=== PATIENT | female | born 1935 | race Caucasian/White ===

== ENCOUNTER 2017-01-29 08:00 | Outpatient (CLI) | payer MEDICARE ==
[2017-01-29 09:10] LABS: ALBUMIN/GLOBULIN RATIO 1.3 (1.0-2.2); BILIRUBIN,TOTAL 1.3 mg/dL (0.2-1.0); CALCIUM 9.4 mg/dL (8.5-10.3); MAGNESIUM 2.1 mg/dL (1.7-2.8); POTASSIUM 3.8 mmol/L (3.5-5.0); TOTAL PROTEIN 7.8 g/dL (6.7-8.2)
[2017-01-31 12:48] LABS: TEST RESULT REPORT (())
[2017-01-31 20:04] LABS: TEST RESULT REPORT (())
== END 2017-01-29 08:01 | disposition home or self-care (01) ==
LOC: LAB 08:00
PROVIDERS: ATTEND Specialist
DX: I36.1 Nonrheumatic tricuspid (valve) insufficiency (principal); I51.89 Other ill-defined heart diseases; I48.0 Paroxysmal atrial fibrillation; I25.10 Atherosclerotic heart disease of native coronary artery without angina pectoris; E78.5 Hyperlipidemia, unspecified; Z95.2 Presence of prosthetic heart valve; I10 Essential (primary) hypertension; R79.89 Other specified abnormal findings of blood chemistry; M86.9 Osteomyelitis, unspecified
CPT/HCPCS: 36415; 80053; 81599; 82465; 83704; 83718; 83735; 84478

== ENCOUNTER 2017-02-12 11:41 | Outpatient (CLI) | payer MEDICARE ==
[2017-02-12 11:59] LABS: BASOPHILS # (AUTO) 0.1 10^3/uL (0.0-0.1); BASOPHILS % (AUTO) 1.1 %; EOSINOPHILS # (AUTO) 0.1 10^3/uL (0.0-0.7); EOSINOPHILS % (AUTO) 2.1 %; HCT - HEMATOCRIT 40.9 % (37.0-47.0); HGB - HEMOGLOBIN 13.9 g/dL (12.0-16.0); LYMPHOCYTES # (AUTO) 1.4 10^3/uL (1.5-3.5); LYMPHOCYTES % (AUTO) 21.6 %; MEAN CORPUSCULAR HEMOGLOBIN 30.5 pg (27.0-31.0); MEAN CORPUSCULAR VOLUME 89.7 fL (81.0-99.0); MEAN PLATELET VOLUME 7.5 fL (7.9-10.8); MONOCYTES # (AUTO) 0.7 10^3/uL (0.0-1.0); MONOCYTES % (AUTO) 10.2 %; NEUTROPHILS # (AUTO) 4.2 10^3/uL (1.5-6.6); RED BLOOD COUNT 4.56 10^6/uL (4.20-5.40); RED CELL DISTRIBUTION WIDTH 14.4 % (12.0-15.0); UNCORRECTED WHITE BLOOD COUNT 6.5 x10^3/uL; WHITE BLOOD COUNT 6.5 x10^3/uL (4.8-10.8)
[2017-02-12 12:38] LABS: CALCIUM 9.6 mg/dL (8.5-10.3); CREATININE 1.1 mg/dL (0.4-1.0); POTASSIUM 4.5 mmol/L (3.5-5.0)
== END 2017-02-12 11:42 | disposition home or self-care (01) ==
LOC: LAB 11:41
PROVIDERS: ATTEND Internal Medicine
DX: Z79.899 Other long term (current) drug therapy (principal)
CPT/HCPCS: 36415; 80048; 85025

== ENCOUNTER 2017-09-21 08:37 | Outpatient (CLI) | payer MEDICARE ==
[2017-09-21 09:20] LABS: ALBUMIN/GLOBULIN RATIO 1.1 (1.0-2.2); BILIRUBIN,TOTAL 1.1 mg/dL (0.2-1.0); CALCIUM 9.5 mg/dL (8.5-10.3); CREATININE 1.2 mg/dL (0.4-1.0); MAGNESIUM 2.1 mg/dL (1.7-2.8); TOTAL PROTEIN 7.8 g/dL (6.7-8.2)
[2017-09-24 12:36] LABS: HDL LARGE 6549 nmol/L (5038-17886); LDL PARTICLE NUMBER 948 nmol/L (1016-2185); LDL PATTERN A Pattern (A); LDL PEAK SIZE 222.3 Angstrom (> OR = 218.2); LDL SMALL 144 nmol/L (115-386)
== END 2017-09-21 08:38 | disposition home or self-care (01) ==
LOC: LAB 08:37
PROVIDERS: ATTEND Specialist
DX: E78.5 Hyperlipidemia, unspecified (principal); I48.0 Paroxysmal atrial fibrillation
CPT/HCPCS: 36415; 80053; 81599; 83704; 83735

== ENCOUNTER 2018-02-07 11:16 | Outpatient (CLI) | payer MEDICARE ==
[2018-02-07 12:38] LABS: BASOPHILS % (AUTO) 0.6 %; EOSINOPHILS # (AUTO) 0.2 10^3/uL (0.0-0.7); EOSINOPHILS % (AUTO) 2.7 %; HGB - HEMOGLOBIN 15.3 g/dL (12.0-16.0); LYMPHOCYTES # (AUTO) 1.3 10^3/uL (1.5-3.5); LYMPHOCYTES % (AUTO) 19.8 %; MEAN CORPUSCULAR HEMOGLOBIN 30.9 pg (27.0-31.0); MEAN CORPUSCULAR HGB CONC 33.6 g/dL (32.0-36.0); MEAN CORPUSCULAR VOLUME 92.1 fL (81.0-99.0); MEAN PLATELET VOLUME 7.5 fL (7.9-10.8); MONOCYTES # (AUTO) 0.7 10^3/uL (0.0-1.0); MONOCYTES % (AUTO) 11.2 %; NEUTROPHILS # (AUTO) 4.3 10^3/uL (1.5-6.6); NEUTROPHILS % (AUTO) 65.7 %; PLT - PLATELET COUNT 180 10^3/uL (130-450); RED BLOOD COUNT 4.93 10^6/uL (4.20-5.40); RED CELL DISTRIBUTION WIDTH 14.2 % (12.0-15.0); WHITE BLOOD COUNT 6.5 x10^3/uL (4.8-10.8)
[2018-02-07 13:25] LABS: ALBUMIN 4.1 g/dL (3.2-5.5); BILIRUBIN,TOTAL 1.3 mg/dL (0.2-1.0); CALCIUM 9.6 mg/dL (8.5-10.3); CREATININE 1.1 mg/dL (0.4-1.0); TOTAL PROTEIN 8.4 g/dL (6.7-8.2)
--- NOTE | 2018-02-08 08:28 | Ultrasound Report ---
Procedure Date: 02/07/2018 Accession Number: [id number] / [id number] Procedure: US - Carotid Doppler Complete CPT Code: FULL RESULT: EXAM: CAROTID DOPPLER ULTRASOUND EXAM DATE: 02/07/2018 12:08 PM. CLINICAL HISTORY: LOSS OF EQUILIBRIUM. COMPARISON: None. TECHNIQUE: Real-time sonographic vascular imaging was performed by the receiving lead through the carotid arterial system with a linear transducer utilizing color-flow, Doppler flow and spectral analysis. Multiple registered representative static images were saved for review. FINDINGS: Transcription to insert worksheet here. Other: None. IMPRESSION: 1. Mild foci of mixed calcified and noncalcified plaque at the bilateral internal carotid arteries sinuses and proximal ICA segments. 2. Arterial velocities and spectral waveform show no evidence for hemodynamically significant (greater than 50%) stenoses of the bilateral internal carotid arteries. 3. Antegrade flow seen in the bilateral vertebral artery segments. Validated velocity measurements with angiographic measurements and velocity criteria are extrapolated from diameter data as defined by the Society of Radiologists in Ultrasound Consensus Conference Radiology 2003; 229;340-346. RADIA ADDENDUM: 02/13/18 15:50 Right: RCCA Prox: PSV 104 cm/sec. RCCA Dist: PSV 85 cm/sec, EDV 4 cm/sec. RECA: PSV 88 cm/sec. R Bulb: PSV 85 cm/sec, EDV 10 cm/sec, ICA/CCA ratio 1.00. ENRIQUETA Prox: PSV 81 cm/sec, EDV 8 cm/sec, ICA/CCA ratio 0.95. ENRIQUETA Mid: PSV 70 cm/sec, EDV 11 cm/sec, ICA/CCA ratio 0.82. ENRIQUETA Dist: PSV 100 cm/sec, EDV 11 cm/sec, ICA/CCA ratio 1.18. RVA: PSV 51 cm/sec. RVA flow direction: Antegrade. Left: LCCA Prox: PSV 113 cm/sec. LCCA Dist: PSV 72 cm/sec, EDV 7 cm/sec. LECA: PSV 108 cm/sec. L Bulb: PSV 121 cm/sec, EDV 13 cm/sec, ICA/CCA ratio 1.68. LICA Prox: PSV 117 cm/sec, EDV 11 cm/sec, ICA/CCA ratio 1.62. LICA Mid: PSV 64 cm/sec, EDV 9 cm/sec, ICA/CCA ratio 0.89. LICA Dist: PSV 54 cm/sec, EDV 8 cm/sec, ICA/CCA ratio 0.75. LVA: PSV 50 cm/sec. LVA flow direction: Antegrade.
== END 2018-02-07 11:17 | disposition home or self-care (01) ==
LOC: DI 11:16
PROVIDERS: ATTEND Internal Medicine
DX: R42 Dizziness and giddiness (principal); Z79.899 Other long term (current) drug therapy
CPT/HCPCS: 36415; 80053; 85025; 93880

== ENCOUNTER 2018-05-10 13:44 | Outpatient (CLI) | payer MEDICARE ==
--- NOTE | 2018-05-13 09:45 | Mammography Report ---
Reason: ROUTINE MAMMO Procedure Date: 05/10/2018 Accession Number: [id number] / [id number] Procedure: JUAN - Screening Mammo Dig RT CPT Code: FULL RESULT: EXAM: Screening Mammo Dig RT DATE: 05/10/2018 3:41 PM CLINICAL HISTORY: 82 year-old nulliparous female status post left radical mastectomy for personal history of left breast cancer status post radiation. TECHNIQUE: Right CC and MLO views were obtained. COMPARISON: 02/18/2015, 12/23/2013, 10/02/2012, 04/19/2011. FINDINGS: The breasts demonstrate heterogeneously dense fibroglandular parenchyma bilaterally. Typically benign vascular calcifications are identified. No suspicious masses, clustered microcalcifications, or regions of architectural distortion are identified. IMPRESSION: Benign findings RECOMMENDATION: Routine annual screening unless otherwise clinically indicated. BIRADS CATEGORY 2: Benign findings STANDARD QUALIFYING STATEMENTS: 1. This examination was not reviewed with the aid of Computer-Aided Detection (CAD). 2. A negative or benign imaging report should not delay biopsy if clinically suspicious findings are present. Consider surgical consultation if warrented. More than 5% of cancers are not identified by imaging. 3. Dense breasts may obscure an underlying neoplasm.
== END 2018-05-10 13:45 | disposition home or self-care (01) ==
LOC: DI 13:44
PROVIDERS: ATTEND Internal Medicine
DX: Z12.31 Encounter for screening mammogram for malignant neoplasm of breast (principal); Z08 Encounter for follow-up examination after completed treatment for malignant neoplasm; Z85.3 Personal history of malignant neoplasm of breast

== ENCOUNTER 2018-05-20 08:25 | Outpatient (CLI) | payer MEDICARE ==
--- NOTE | 2018-05-20 10:34 | Ultrasound Report ---
Reason: ABNL LFT'S Procedure Date: 05/20/2018 Accession Number: [id number] / [id number] Procedure: US - Abdomen Limited CPT Code: FULL RESULT: EXAM: ABDOMEN ULTRASOUND LIMITED, RUQ EXAM DATE: 05/20/2018 09:34 AM. CLINICAL HISTORY: Abnormal LFTS. COMPARISON: None. TECHNIQUE: Real-time scanning was performed with static images obtained. FINDINGS: Liver: Normal in size and echotexture. Liver measures at least 10 cm. Main portal vein flow: Hepatopetal. Gallbladder: Normal. No stones, wall thickening, or sonographic Hill's sign. Biliary System: CBD measures 1 mm. No intrahepatic or extrahepatic ductal dilatation. Other: None. IMPRESSION: Normal. No cholelithiasis or cholecystitis. RADIA
== END 2018-05-20 08:26 | disposition home or self-care (01) ==
LOC: DI 08:25
PROVIDERS: ATTEND Internal Medicine
DX: R94.5 Abnormal results of liver function studies (principal)
CPT/HCPCS: 76705

== ENCOUNTER 2018-06-26 10:57 | Outpatient (CLI) | payer MEDICARE ==
[2018-06-26 11:47] LABS: ALBUMIN 4.3 g/dL (3.2-5.5); ALBUMIN/GLOBULIN RATIO 1.2 (1.0-2.2); BILIRUBIN,TOTAL 1.1 mg/dL (0.2-1.0); CALCIUM 9.6 mg/dL (8.5-10.3); CREATININE 1.1 mg/dL (0.4-1.0); MAGNESIUM 2.1 mg/dL (1.7-2.8); TOTAL PROTEIN 7.9 g/dL (6.7-8.2)
== END 2018-06-26 10:58 | disposition home or self-care (01) ==
LOC: LAB 10:57
PROVIDERS: ATTEND Specialist
DX: E78.2 Mixed hyperlipidemia (principal); I48.0 Paroxysmal atrial fibrillation
CPT/HCPCS: 36415; 80053; 83735

== ENCOUNTER 2018-07-03 09:31 | Outpatient (CLI) | payer MEDICARE ==
[2018-07-05 08:59] LABS: CHOLESTEROL 149 mg/dL; HDL CHOLESTEROL 75 mg/dL; LDL CHOLESTEROL,CALCULATED 60 mg/dL; LDL/HDL RATIO 0.8 (<4.4); VLDL CHOLESTEROL 14 mg/dL
[2018-07-07 18:07] LABS: HDL LARGE 6032 nmol/L (3966-11938); LDL PARTICLE NUMBER 726 nmol/L (732-2035); LDL PATTERN A Pattern (A); LDL PEAK SIZE 220.5 Angstrom (> OR = 217.4); LDL SMALL 114 nmol/L (75-452)
== END 2018-07-03 09:32 | disposition home or self-care (01) ==
LOC: LAB 09:31
PROVIDERS: ATTEND Specialist
DX: E78.2 Mixed hyperlipidemia (principal)
CPT/HCPCS: 36415; 80061; 81599; 82465; 83704; 83718; 83721; 84478

== ENCOUNTER 2018-07-17 10:50 | Outpatient (CLI) | payer MEDICARE ==
[2018-07-17 11:24] LABS: MAGNESIUM 2.1 mg/dL (1.7-2.8)
== END 2018-07-17 10:51 | disposition home or self-care (01) ==
LOC: LAB 10:50
PROVIDERS: ATTEND Specialist
DX: I48.0 Paroxysmal atrial fibrillation (principal); R94.5 Abnormal results of liver function studies; E78.2 Mixed hyperlipidemia; I51.9 Heart disease, unspecified
CPT/HCPCS: 36415; 80048; 83735

== ENCOUNTER 2018-09-19 13:43 | Outpatient (CLI) | payer MEDICARE ==
[2018-09-19 14:00] LABS: BASOPHILS % (AUTO) 0.6 %; EOSINOPHILS # (AUTO) 0.2 10^3/uL (0.0-0.7); EOSINOPHILS % (AUTO) 2.9 %; HGB - HEMOGLOBIN 14.7 g/dL (12.0-16.0); LYMPHOCYTES # (AUTO) 1.4 10^3/uL (1.5-3.5); LYMPHOCYTES % (AUTO) 20.9 %; MEAN CORPUSCULAR HEMOGLOBIN 30.4 pg (27.0-31.0); MEAN CORPUSCULAR HGB CONC 34.1 g/dL (32.0-36.0); MEAN CORPUSCULAR VOLUME 89.2 fL (81.0-99.0); MEAN PLATELET VOLUME 7.7 fL (7.9-10.8); MONOCYTES # (AUTO) 0.7 10^3/uL (0.0-1.0); MONOCYTES % (AUTO) 9.8 %; NEUTROPHILS # (AUTO) 4.5 10^3/uL (1.5-6.6); NEUTROPHILS % (AUTO) 65.8 %; PLT - PLATELET COUNT 173 10^3/uL (130-450); RED BLOOD COUNT 4.83 10^6/uL (4.20-5.40); RED CELL DISTRIBUTION WIDTH 14.8 % (12.0-15.0); WHITE BLOOD COUNT 6.9 x10^3/uL (4.8-10.8)
[2018-09-19 14:07] LABS: CALCIUM 9.2 mg/dL (8.5-10.3); CREATININE 1.1 mg/dL (0.4-1.0)
== END 2018-09-19 13:44 | disposition home or self-care (01) ==
LOC: LAB 13:43
PROVIDERS: ATTEND Internal Medicine
DX: M86.9 Osteomyelitis, unspecified (principal)
CPT/HCPCS: 36415; 80048; 85025

== ENCOUNTER 2018-12-26 08:59 | Outpatient (CLI) | payer MEDICARE ==
[2018-12-26 09:44] LABS: ALBUMIN 4.1 g/dL (3.2-5.5); ALBUMIN/GLOBULIN RATIO 1.2 (1.0-2.2); BILIRUBIN,TOTAL 1.4 mg/dL (0.2-1.0); CALCIUM 9.6 mg/dL (8.5-10.3); CREATININE 1.1 mg/dL (0.4-1.0); TOTAL PROTEIN 7.6 g/dL (6.7-8.2)
[2018-12-29 00:22] LABS: HDL LARGE 5254 nmol/L (3966-11938); LDL PARTICLE NUMBER 866 nmol/L (732-2035); LDL PATTERN A Pattern (A); LDL PEAK SIZE 220.5 Angstrom (> OR = 217.4); LDL SMALL 136 nmol/L (75-452)
== END 2018-12-26 09:00 | disposition home or self-care (01) ==
LOC: LAB 08:59
PROVIDERS: ATTEND Specialist
DX: E78.2 Mixed hyperlipidemia (principal); I48.0 Paroxysmal atrial fibrillation; R94.5 Abnormal results of liver function studies
CPT/HCPCS: 36415; 80053; 81599; 82465; 83704; 83718; 83735; 84478

== ENCOUNTER 2019-03-03 10:24 | Emergency (ER) | payer MEDICARE ==
--- NOTE | 2019-03-03 12:44 | ED Physician Documentation ---
PD HPI BACK PAIN - Stated complaint Stated Complaint: BACK PX - Chief complaint Chief Complaint: Back Pain - History obtained from History obtained from: Patient - History of Present Illness Timing - onset: How many weeks ago (2) Timing - duration: Weeks (2) Timing - details: Abrupt onset Pain level max: 7 Pain level now: 5 Location: Mid, Right Quality: Pain, Spasm Associated symptoms: No: Fever, Weakness, Numbness, Incontinent of urine, Unable to urinate, Hematuria, Incontinent of stool Improves with: Rest Worsened by: Movement Contributing factors: Other (states injured it getting out of the car) Recently seen: Not recently seen - Additional information Additional information: taking tylenol at home. 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[employer]IC: Breast cancer : None HEENT: None Psych: None Musculoskeletal: Osteoporosis Derm: None - Past Surgical History Past Surgical History: Yes /[employer]INTENANCE MECH[employer]IC: Mastectomy Cardiovascular: CABG, Valve replacement - Present Medications Home Medications: Ambulatory Orders Medication Instructions Recorded Confirmed Amlodipine Besylate 5 mg PO DAILY 09/10/13 05/16/16 Warfarin [Coumadin] 5 mg PO DAILY@1400 09/10/13 05/16/16 Metoprolol Tartrate 50 mg PO BID 08/22/14 05/16/16 Atorvastatin [Lipitor] 10 mg PO QPM 05/16/16 05/16/16 Cholecalciferol (Vitamin D3) 5,000 units PO DAILY 05/16/16 05/16/16 [Vitamin D3] Potassium Chloride 20 meq PO DAILY 05/16/16 05/16/16 hydroCHLOROthiazide 25 mg PO DAILY 05/16/16 05/16/16 [Hydrochlorothiazide] Hydrocodone/Acetaminophen 1 - 2 each PO Q6H PRN #14 tablet 03/03/19 [Hydrocodon-Acetaminophen 5-325] Ondansetron Odt [Zofran] 4 mg TL Q6H PRN #10 tablet 03/03/19 - Allergies Allergies/Adverse Reactions: Allergies Allergy/AdvReac Type Severity Reaction Status Date / Time codeine AdvReac Unknown Nausea Verified 03/03/19 10:42 - Social History Does the pt smoke?: No Smoking Status: Never smoker Does the pt drink ETOH?: Yes Does the pt have substance abuse?: No - Immunizations Immunizations are current?: Yes - POLST Patient has POLST: No PD ED PE NORMAL - Vitals Vital signs reviewed: Yes - General General: Alert and oriented X 3, No acute distress, Well developed/nourished - HEENT HEENT: Moist mucous membranes - Neck Neck: Supple, no meningeal sign - Cardiac Cardiac: RRR, Strong equal pulses - Respiratory Respiratory: No respiratory distress, Clear bilaterally - Abdomen Abdomen: Soft, Non tender, Non distended - Back Back: Other (Tender palpation over the spinous process of approximately T8. Otherwise normal examination of the back and spine. No paraspinal spasm. No step-off or deformity) - Derm Derm: Warm and dry - Extremities Extremities: No edema - Neuro Neuro: Alert and oriented X 3, No motor deficit, No sensory deficit, Other (Normal bilateral lower extremity patellar and ankle jerk reflexes. Normal great toe extension bilaterally. no saddle anesthesia) - Psych Psych: Normal mood, Normal affect Results - Vitals Vitals: Vital Signs - 24 hr 03/03/19 03/03/19 10:39 16:17 Temperature 36.5 C 36.7 C Heart Rate 72 72 Respiratory 18 18 Rate Blood Pressure 150/64 H 151/48 H O2 Saturation 96 96 Oxygen O2 Source Room air - Labs Labs: Laboratory Tests 03/03/19 13:13 Whole Blood INR 3.1 H - Rads (name of study) T spine xray Radiology: Prelim report reviewed, EMP read contemporaneously, See rad report (T8 compression fracture) CT T spine Radiology: Prelim report reviewed, EMP read contemporaneously, See rad report (T8 compression fracture, a 2 column fracture with no retropulsion of cortex. 2. Carotid artery calcifications and other chronic or incidental findings. ) PD MEDICAL DECISION MAKING - ED course Complexity details: reviewed results, re-evaluated patient, considered differential, d/w patient, d/w data center consultant ED course: 83-year-old female with a T8 burst fracture. 2 column, anterior and intermediate. Discussed the case with Dr. Teague [id number], [facility] spine surgery. Recommends upright films. If there is no movement on upright films can be discharged home to follow-up with her doctor. Patient is neurologically intact. There is no change on upright films. Initial T-spine x- rays were upright films. Patient counseled regarding signs and symptoms for which I believe and urgent re-evaluation would be necessary. Patient with good understanding of and agreement to plan and is comfortable going home at this time This document was made in part using voice recognition software. While efforts are made to proofread this document, sound alike and grammatical errors may occur. Departure - Departure Disposition: Home, Self Care Clinical Impression: Compression fracture of T8 vertebra Qualifiers: Encounter type: initial encounter Qualified Code(s): S22.060A - Wedge compression fracture of T7-T8 vertebra, initial encounter for closed fracture Condition: Good Instructions: ED Fx Comp Vertebral Follow-Up: Jasmin Garland MD [Primary Care Provider] - Within 1 week Prescriptions: Hydrocodone/Acetaminophen [Hydrocodon-Acetaminophen 5-325] 1 - 2 each PO Q6H PRN #14 tablet PRN Reason: pain Ondansetron Odt [Zofran] 4 mg TL Q6H PRN #10 tablet PRN Reason: Nausea / Vomiting Comments: You have a T8 compression fracture. This is stable. This should heal over the next few weeks. Make sure to follow-up closely with your doctor for further care. Return if you worsen. Do not drink alcohol or drive while on narcotic pain medicine. Note that many narcotic pain relievers also contain tylenol/acetaminophen. Please ensure that your total dose of acetaminophen from all sources does not exceed 3 grams (3000mg) per day. You may constipated on this medication, take a stool softener such as "Colace" twice a day while you are on it. Also recommend a vazr-mvc-dwbndnu laxative such as senna or MiraLAX any day that you do not have a bowel movement. If you received narcotic pain medication in the emergency department, do not drive or operate machinery for the next 24 hours. Discharge Date/Time: 03/03/19 16:18
--- NOTE | 2019-03-03 13:21 | XRAY Report ---
Reason: pain approx T8 over spinous process. Procedure Date: 03/03/2019 Accession Number: [id number] / [id number] Procedure: XR - Thoracic Spine 2 View CPT Code: FULL RESULT: EXAM: THORACIC SPINE RADIOGRAPHY EXAM DATE: 03/03/2019 12:58 PM. CLINICAL HISTORY: Pain approx T8 over spinous process. COMPARISON: CHEST 2 VIEW PA/LAT 05/15/2016 1:43 PM. TECHNIQUE: 2 views. FINDINGS: Alignment: Normal. No spondylolisthesis or scoliosis. Bones: Diffuse osteopenia. Moderate compression deformity at approximately T8 level. Generalized thoracic kyphosis. Disks: Mild loss of disk space height within mid to lower thoracic spine. Soft Tissues: Prior sternotomy and cardiac valve replacement. Dense atherosclerotic aortic calcifications. IMPRESSION: 1. Diffuse osteopenia. A mid to lower thoracic vertebral body fracture with moderate anterior wedging at approximately T8 level has developed since 05/15/2016. RADIA
--- NOTE | 2019-03-03 14:11 | CT Report ---
Reason: T8 compression fracture on xray, back pain Procedure Date: 03/03/2019 Accession Number: [id number] / [id number] Procedure: CT - THORACIC SPINE WO CPT Code: FULL RESULT: EXAM: CT THORACIC SPINE WITHOUT CONTRAST EXAM DATE: 03/03/2019 01:47 PM. CLINICAL HISTORY: T8 compression fracture on x-ray, back pain. COMPARISONS: THORACIC SPINE 2 VIEW 03/03/2019 12:42 PM CHEST 2 VIEW PA/LAT 05/15/2016 1:43 PM. TECHNIQUE: Thin-section axial images were acquired of the thoracic spine from C7 to L1 without contrast. Post-processing: Coronal and sagittal reformats. Other: None. In accordance with CT protocol optimization, one or more of the following dose reduction techniques were utilized for this exam: automated exposure control, adjustment of mA and/or KV based on patient size, or use of iterative reconstructive technique. FINDINGS: Alignment: Mild scoliosis. No listhesis. Bones: Osteopenia. Upper endplate anterior compression fracture of T8 involving anterior and intermediate columns, but with no retropulsion of cortex. No posterior involvement. Otherwise intact. Disk Levels/Facets: Disk spaces generally well preserved. Mild degenerative changes. Musculature: Unremarkable. Other: Diffuse emphysematous changes. Dilated ascending thoracic aorta measuring about 4.1 cm. Carotid artery calcifications. Calcifications of mitral annulus. IMPRESSION: 1. T8 compression fracture, a 2 column fracture with no retropulsion of cortex. 2. Carotid artery calcifications and other chronic or incidental findings. RADIA
[2019-03-03 16:18] VITALS: BP 151/48
== END 2019-03-03 16:18 | disposition home or self-care (01) ==
LOC: ED 10:24
DX: S22.061A Stable burst fracture of T7-T8 vertebra, initial encounter for closed fracture (principal); X50.1XXA Overexertion from prolonged static or awkward postures, initial encounter; V48.4XXA Person boarding or alighting a car injured in noncollision transport accident, initial encounter; Y93.89 Activity, other specified; I10 Essential (primary) hypertension; I48.91 Unspecified atrial fibrillation; Z79.01 Long term (current) use of anticoagulants
CPT/HCPCS: 72070; 72128; 85610; 99283; 99284

== ENCOUNTER 2019-07-16 10:18 | Outpatient (CLI) | payer MEDICARE ==
[2019-07-16 10:45] LABS: CALCIUM 9.8 mg/dL (8.5-10.3); CREATININE 1.2 mg/dL (0.4-1.0)
== END 2019-07-16 10:19 | disposition home or self-care (01) ==
LOC: LAB 10:18
PROVIDERS: ATTEND Specialist
DX: I10 Essential (primary) hypertension (principal)
CPT/HCPCS: 36415; 80048; 83735

== ENCOUNTER 2019-08-28 10:25 | Outpatient (CLI) | payer MEDICARE ==
[2019-08-28 11:06] LABS: ALBUMIN 4.6 g/dL (3.2-5.5); ALBUMIN/GLOBULIN RATIO 1.2 (1.0-2.2); BILIRUBIN,TOTAL 1.9 mg/dL (0.2-1.0); CALCIUM 10.1 mg/dL (8.5-10.3); CREATININE 1.1 mg/dL (0.4-1.0); MAGNESIUM 2.2 mg/dL (1.7-2.8); TOTAL PROTEIN 8.4 g/dL (6.7-8.2)
[2019-08-31 20:09] LABS: HDL LARGE 7000 nmol/L (3966-11938); LDL PARTICLE NUMBER 976 nmol/L (732-2035); LDL PATTERN A Pattern (A); LDL PEAK SIZE 225.4 Angstrom (> OR = 217.4); LDL SMALL 140 nmol/L (75-452)
== END 2019-08-28 10:26 | disposition home or self-care (01) ==
LOC: LAB 10:25
PROVIDERS: ATTEND Specialist
DX: E78.2 Mixed hyperlipidemia (principal); I48.0 Paroxysmal atrial fibrillation
CPT/HCPCS: 36415; 80053; 80061; 81599; 83704; 83735

== ENCOUNTER 2019-11-04 13:30 | Outpatient (CLI) | payer MEDICARE ==
[2019-11-04 13:56] LABS: CREATININE 1.2 mg/dL (0.4-1.0); MAGNESIUM 2.1 mg/dL (1.7-2.8)
== END 2019-11-04 13:31 | disposition home or self-care (01) ==
LOC: LAB 13:30
PROVIDERS: ATTEND Specialist
DX: I48.0 Paroxysmal atrial fibrillation (principal); I50.810 Right heart failure, unspecified
CPT/HCPCS: 36415; 80048; 83735; 83880

== ENCOUNTER 2019-12-12 13:18 | Outpatient (CLI) | payer MEDICARE ==
[2019-12-12 13:42] LABS: ALBUMIN 4.1 g/dL (3.2-5.5); BILIRUBIN,TOTAL 1.6 mg/dL (0.2-1.0); CALCIUM 9.5 mg/dL (8.5-10.3); CREATININE 1.3 mg/dL (0.4-1.0); MAGNESIUM 2.2 mg/dL (1.7-2.8); TOTAL PROTEIN 8.1 g/dL (6.7-8.2)
== END 2019-12-12 13:19 | disposition home or self-care (01) ==
LOC: LAB 13:18
PROVIDERS: ATTEND Specialist
DX: I48.0 Paroxysmal atrial fibrillation (principal); I50.810 Right heart failure, unspecified
CPT/HCPCS: 36415; 80053; 83735; 83880

== ENCOUNTER 2020-01-16 12:37 | Outpatient (CLI) | payer MEDICARE ==
[2020-01-16 13:02] LABS: CALCIUM 9.8 mg/dL (8.5-10.3); CREATININE 1.2 mg/dL (0.4-1.0); MAGNESIUM 2.3 mg/dL (1.7-2.8)
== END 2020-01-16 12:38 | disposition home or self-care (01) ==
LOC: LAB 12:37
PROVIDERS: ATTEND Specialist
DX: I10 Essential (primary) hypertension (principal); I36.1 Nonrheumatic tricuspid (valve) insufficiency; I48.0 Paroxysmal atrial fibrillation; R94.5 Abnormal results of liver function studies; E78.00 Pure hypercholesterolemia, unspecified
CPT/HCPCS: 36415; 80048; 83735

== ENCOUNTER 2020-01-26 12:58 | Outpatient (CLI) | payer MEDICARE ==
[2020-01-26 13:33] LABS: BASOPHILS % (AUTO) 0.7 %; EOSINOPHILS # (AUTO) 0.2 10^3/uL (0.0-0.7); EOSINOPHILS % (AUTO) 2.7 %; HGB - HEMOGLOBIN 13.8 g/dL (12.0-16.0); LYMPHOCYTES # (AUTO) 1.3 10^3/uL (1.5-3.5); LYMPHOCYTES % (AUTO) 21.2 %; MEAN CORPUSCULAR HEMOGLOBIN 29.2 pg (27.0-31.0); MEAN CORPUSCULAR HGB CONC 31.9 g/dL (32.0-36.0); MEAN CORPUSCULAR VOLUME 91.5 fL (81.0-99.0); MEAN PLATELET VOLUME 9.8 fL (7.9-10.8); MONOCYTES # (AUTO) 0.7 10^3/uL (0.0-1.0); MONOCYTES % (AUTO) 11.2 %; NEUTROPHILS # (AUTO) 3.8 10^3/uL (1.5-6.6); NEUTROPHILS % (AUTO) 63.9 %; PLT - PLATELET COUNT 142 10^3/uL (130-450); RED BLOOD COUNT 4.72 10^6/uL (4.20-5.40); RED CELL DISTRIBUTION WIDTH 15.6 % (12.0-15.0); WHITE BLOOD COUNT 5.9 x10^3/uL (4.8-10.8)
[2020-01-26 13:44] LABS: CALCIUM 9.6 mg/dL (8.5-10.3); CREATININE 1.2 mg/dL (0.4-1.0)
== END 2020-01-26 12:59 | disposition home or self-care (01) ==
LOC: LAB 12:58
PROVIDERS: ATTEND Specialist
DX: E87.6 Hypokalemia (principal); Z79.899 Other long term (current) drug therapy
CPT/HCPCS: 36415; 80048; 85025

== ENCOUNTER 2020-04-12 12:17 | Outpatient (CLI) | payer MEDICARE ==
[2020-04-12 12:39] LABS: BASOPHILS % (AUTO) 0.8 %; EOSINOPHILS # (AUTO) 0.2 10^3/uL (0.0-0.7); EOSINOPHILS % (AUTO) 3.6 %; HGB - HEMOGLOBIN 12.7 g/dL (12.0-16.0); LYMPHOCYTES % (AUTO) 21.7 %; MEAN CORPUSCULAR HEMOGLOBIN 30.7 pg (27.0-31.0); MEAN CORPUSCULAR VOLUME 95.9 fL (81.0-99.0); MEAN PLATELET VOLUME 9.9 fL (7.9-10.8); MONOCYTES # (AUTO) 0.5 10^3/uL (0.0-1.0); MONOCYTES % (AUTO) 10.4 %; NEUTROPHILS % (AUTO) 63.3 %; PLT - PLATELET COUNT 150 10^3/uL (130-450); RED BLOOD COUNT 4.14 10^6/uL (4.20-5.40); RED CELL DISTRIBUTION WIDTH 15.3 % (12.0-15.0); WHITE BLOOD COUNT 4.7 x10^3/uL (4.8-10.8)
[2020-04-12 12:53] LABS: CALCIUM 9.6 mg/dL (8.5-10.3); CREATININE 1.1 mg/dL (0.4-1.0); MAGNESIUM 2.2 mg/dL (1.7-2.8)
== END 2020-04-12 12:18 | disposition home or self-care (01) ==
LOC: LAB 12:17
PROVIDERS: ATTEND Specialist
DX: I10 Essential (primary) hypertension (principal); D69.6 Thrombocytopenia, unspecified; N28.9 Disorder of kidney and ureter, unspecified; Z79.899 Other long term (current) drug therapy
CPT/HCPCS: 36415; 80048; 83735; 85025

== ENCOUNTER 2020-06-16 08:47 | Outpatient (CLI) | payer MEDICARE ==
[2020-06-16 09:17] LABS: ALBUMIN 3.7 g/dL (3.2-5.5); ALBUMIN/GLOBULIN RATIO 1.1 (1.0-2.2); BILIRUBIN,TOTAL 1.3 mg/dL (0.2-1.0); CALCIUM 9.2 mg/dL (8.5-10.3); CREATININE 1.3 mg/dL (0.4-1.0); TOTAL PROTEIN 7.1 g/dL (6.7-8.2)
[2020-06-20 19:37] LABS: HDL LARGE 5095 nmol/L (>6729); LDL PARTICLE NUMBER 906 nmol/L (<1138); LDL PATTERN B Pattern (A); LDL PEAK SIZE 215.2 Angstrom (>222.9); LDL SMALL 166 nmol/L (<142)
== END 2020-06-16 08:48 | disposition home or self-care (01) ==
LOC: LAB 08:47
PROVIDERS: ATTEND Specialist
DX: E78.00 Pure hypercholesterolemia, unspecified (principal); I48.0 Paroxysmal atrial fibrillation; R94.5 Abnormal results of liver function studies
CPT/HCPCS: 36415; 80053; 80061; 81599; 83704; 83735

== ENCOUNTER 2020-06-28 14:03 | Outpatient (CLI) | payer MEDICARE | END 2020-06-28 14:04 | disposition home or self-care (01) | LOC: LAB 14:03 | PROVIDERS: ATTEND Specialist | DX: I48.0 Paroxysmal atrial fibrillation (principal) | CPT/HCPCS: 36415; 80048 ==

== ENCOUNTER 2020-06-29 13:20 | Outpatient (CLI) | payer MEDICARE ==
[2020-06-29 13:53] LABS: CALCIUM 9.8 mg/dL (8.5-10.3); CREATININE 1.3 mg/dL (0.4-1.0)
== END 2020-06-29 13:21 | disposition home or self-care (01) ==
LOC: LAB 13:20
PROVIDERS: ATTEND Specialist
DX: I48.0 Paroxysmal atrial fibrillation (principal)
CPT/HCPCS: 36415; 80048

== ENCOUNTER 2020-07-05 12:00 | Outpatient (CLI) | payer MEDICARE ==
[2020-07-05 12:34] LABS: CALCIUM 10.2 mg/dL (8.5-10.3); CREATININE 1.5 mg/dL (0.4-1.0)
== END 2020-07-05 12:01 | disposition home or self-care (01) ==
LOC: LAB 12:00
PROVIDERS: ATTEND Specialist
DX: I48.0 Paroxysmal atrial fibrillation (principal)
CPT/HCPCS: 36415; 80048

== ENCOUNTER 2020-07-22 11:49 | Emergency (ER) | payer MEDICARE ==
[2020-07-22 12:13] LABS: BASOPHILS # (AUTO) 0.1 10^3/uL (0.0-0.1); BASOPHILS % (AUTO) 0.6 %; EOSINOPHILS # (AUTO) 0.2 10^3/uL (0.0-0.7); EOSINOPHILS % (AUTO) 1.8 %; HGB - HEMOGLOBIN 14.2 g/dL (12.0-16.0); LYMPHOCYTES # (AUTO) 1.3 10^3/uL (1.5-3.5); LYMPHOCYTES % (AUTO) 14.8 %; MEAN CORPUSCULAR HEMOGLOBIN 29.3 pg (27.0-31.0); MEAN CORPUSCULAR HGB CONC 33.5 g/dL (32.0-36.0); MEAN CORPUSCULAR VOLUME 87.6 fL (81.0-99.0); MEAN PLATELET VOLUME 9.2 fL (7.9-10.8); MONOCYTES # (AUTO) 0.9 10^3/uL (0.0-1.0); MONOCYTES % (AUTO) 9.9 %; NEUTROPHILS # (AUTO) 6.5 10^3/uL (1.5-6.6); NEUTROPHILS % (AUTO) 72.3 %; PLT - PLATELET COUNT 180 10^3/uL (130-450); RED BLOOD COUNT 4.84 10^6/uL (4.20-5.40); RED CELL DISTRIBUTION WIDTH 14.2 % (12.0-15.0)
--- NOTE | 2020-07-22 12:16 | XRAY Report ---
PROCEDURE: Chest 1 View X-Ray INDICATIONS: Chest Pain TECHNIQUE: One view of the chest was acquired. COMPARISON: Chest radiographs 05/15/2016, CTA 05/16/2016 FINDINGS: Surgical changes and devices: Sternotomy wires and prosthetic heart valve are present. Status post le ft mastectomy. Lungs and pleura: No pleural effusions or pneumothorax. Chronic interstitial markings are seen in ashleigh th lungs without acute airspace opacity. No pleural effusion or pneumothorax is identified. Mediastinum: Mediastinal contours appear normal. Heart size is normal. Bones and chest wall: No suspicious bony lesions. Overlying soft tissues appear unremarkable. IMPRESSION: No acute cardiopulmonary abnormality. Reviewed by: Jose Luis Siu MD on 07/22/2020 11:15 AM [facility] Approved by: Jose Luis Siu MD on 07/22/2020 11:15 AM [facility] Station ID: [id number]
--- NOTE | 2020-07-22 12:24 | ED Physician Documentation ---
History of Present Illness - Stated complaint Stated Complaint: SOA/LEG SWELLING - Chief complaint Chief Complaint: Cardiac - History obtained from History obtained from: Patient - Additonal information Additional information: 84-year-old female presents to the emergency department for evaluation of increased shortness of breath and leg swelling. She has a extensive cardiac, CHF and atrial fibrillation (on coumadin) hx. 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 She required clip of aortic valve in May 2020 secondary to regurgitation/leak. This was done at with Dr. Auguste. She also has a history of a TVR which is/p clip 03/30/20 and the AOV s/p clip May 2020. Patient reports that after over the last 48 hours she has had an approximately 5 to 6 pound weight gain as well as significant swelling in both of her lower extremities. She reports that she is taking both Lasix and Aldactone. In a phone call to her cardiac healthcare provider today they recommended that she come into the ER for evaluation but they did write for an increase in her baseline Lasix. She does report a cough at baseline that is increased recently with some sputum production. She denies any fevers or hemoptysis. She denies any chest pain. She denies abdominal pain vomiting or dysuria. She is quite lucid and knows her medical hx rather well meds: Cefadroxil daily for 4 years, amlodipine, atorvastatin, metoprolol succinate, Coumadin, Aldactone, Lasix Review of Systems Constitutional: denies: Fever, Chills Eyes: reports: Reviewed and negative Ears: reports: Reviewed and negative Nose: reports: Reviewed and negative Throat: reports: Reviewed and negative Cardiac: reports: Pedal edema. denies: Chest pain / pressure, Palpitations, Calf pain Respiratory: reports: Dyspnea, Cough. 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 HEENT: None Psych: None Musculoskeletal: Osteoporosis Derm: None - Past Surgical History Past Surgical History: Yes /REPERTOIRE MANAGER: Mastectomy Cardiovascular: CABG, Valve replacement - Present Medications Home Medications: Ambulatory Orders Medication Instructions Recorded Confirmed Amlodipine Besylate mg PO DAILY 09/10/13 05/16/16 Warfarin [Coumadin] 5 mg PO DAILY@1400 09/10/13 07/22/20 Metoprolol Tartrate mg PO BID 08/22/14 05/16/16 Atorvastatin [Lipitor] mg PO QPM 05/16/16 05/16/16 Cholecalciferol (Vitamin D3) units PO DAILY 05/16/16 05/16/16 [Vitamin D3] Potassium Chloride meq PO DAILY 05/16/16 05/16/16 Albuterol Sulf [Ventolin Hfa 1 - 2 puffs INH Q4HR PRN #1 inhaler 07/22/20 Inhaler] Cefadroxil [Duricef] 1,000 mg PO BID 07/22/20 07/22/20 Furosemide [Lasix] 07/22/20 Furosemide [Lasix] 80 mg PO DAILY #60 tablet 07/22/20 Magnesium 07/22/20 Spironolactone [Aldactone] 07/22/20 - Allergies Allergies/Adverse Reactions: Allergies Allergy/AdvReac Type Severity Reaction Status Date / Time codeine AdvReac Unknown Nausea Verified 07/22/20 12:01 - Social History Does the pt smoke?: No Smoking Status: Never smoker Does the pt drink ETOH?: Yes Does the pt have substance abuse?: No - Immunizations Immunizations are current?: Yes - POLST Patient has POLST: No PD ED PE EXPANDED - General General: Alert, Other (sitting forward to breath) - Cardiac Cardiac: Irregularly irregular, Murmur Present, Normal pulses, Radial strong equal, Pedal strong equal, Cap refill < 2 sec - Respiratory Respiratory: Clear to ausultation jennifer, Labored. No: Retractions, Wheezing, Rhonchi - Abdomen Abdomen: Normal Bowel sounds. No: Tender to palpation - Back Back: Vertebral tenderness. No: Soft tissue tenderness - Derm Derm: Normal color. No: Rash - Extremities Extremities: Pedal edema R, Pedal edema bilateral (Significant pitting edema bilateral lower extremities from the feet to just below the knee.), Pedal Pulses Present. No: Deformity, Tenderness, Right calf TTP/cord, Left calf TTP/cord, Cold foot - Neuro Neuro: Alert and Oriented X 3, CNII-XII intact, Normal gait, Normal speech - GCS Eye Opening: Spontaneous Motor: Obeys Commands Verbal: Oriented Total: 15 Results - Vitals Vitals: Vital Signs - 24 hr 07/22/20 07/22/20 07/22/20 11:59 12:31 13:01 Temperature 36 C L Heart Rate 88 93 86 Respiratory 22 18 24 Rate Blood Pressure 138/69 H 126/83 H 126/88 H O2 Saturation 95 96 97 07/22/20 07/22/20 07/22/20 13:30 13:36 14:00 Temperature Heart Rate 75 89 84 Respiratory 24 20 25 H Rate Blood Pressure 120/61 138/69 H O2 Saturation 95 94 07/22/20 07/22/20 14:30 15:00 Temperature 37.1 C Heart Rate 78 76 Respiratory 24 19 Rate Blood Pressure 121/62 121/56 L O2 Saturation 95 95 Oxygen O2 Source Room air - EKG (time done) 1154 Rate: Rate (enter#) (86) Rhythm: Atrial fibrillation [employer]: Other QRS: LVH Ischemia: Q waves (inferior leads) Compare to prior EKG: Changed from prior EKG Computer interpretation: Agree with computer (atral fin with inferior and anterior infarcts; consistent with LVH) - Labs Labs: Laboratory Tests 07/22/20 07/22/20 07/22/20 12:04 12:04 12:04 WBC 9.0 RBC 4.84 Hgb 14.2 Hct 42.4 MCV 87.6 MCH 29.3 MCHC 33.5 RDW 14.2 Plt Count 180 MPV 9.2 Neut # (Auto) 6.5 Lymph # (Auto) 1.3 L [place] # (Auto) 0.9 Eos # (Auto) 0.2 Baso # (Auto) 0.1 Absolute Nucleated RBC 0.00 Nucleated RBC % 0.0 PT INR Sodium 134 L Potassium 4.3 Chloride 99 L Carbon Dioxide 21 Anion Gap 14.0 H BUN 36 H Creatinine 1.7 H Estimated GFR (MDRD) 29 L Glucose 104 H Lactic Acid Calcium 10.2 Total Bilirubin 1.5 H AST 49 H ALT 28 Alkaline Phosphatase 150 H Troponin I High Sens 22.0 H* B-Natriuretic Peptide Total Protein 8.5 H Albumin 4.6 Globulin 3.9 Albumin/Globulin Ratio 1.2 Lipase 49 Nasal Adenovirus (PCR) Nasal B. parapertussis DNA (PCR) Nasal Coronavir 229E PCR Nasal Coronavir HKU1 PCR Nasal Coronavir NL63 PCR Nasal Coronavir OC43 PCR Nasal Enterovir/Rhinovir PCR Nasal Influenza B PCR Nasal Influenza A PCR Nasal Parainfluen 1 PCR Nasal Parainfluen 2 PCR Nasal Parainfluen 3 PCR Nasal Parainfluen 4 PCR Nasal RSV (PCR) Nasal B.pertussis DNA PCR Nasal C.pneumoniae (PCR) Dimitris Human Metapneumo PCR Nasal M.pneumoniae (PCR) Nasal SARS-CoV-2 (PCR) 07/22/20 07/22/20 07/22/20 12:04 12:32 12:33 WBC RBC Hgb Hct MCV MCH MCHC RDW Plt Count MPV Neut # (Auto) Lymph # (Auto) [place] # (Auto) Eos # (Auto) Baso # (Auto) Absolute Nucleated RBC Nucleated RBC % PT INR Sodium Potassium Chloride Carbon Dioxide Anion Gap BUN Creatinine Estimated GFR (MDRD) Glucose Lactic Acid 1.9 Calcium Total Bilirubin AST ALT Alkaline Phosphatase Troponin I High Sens B-Natriuretic Peptide 967 H Total Protein Albumin Globulin Albumin/Globulin Ratio Lipase Nasal Adenovirus (PCR) NOT DETECTED Nasal B. parapertussis DNA (PCR) NOT DETECTED Nasal Coronavir 229E PCR NOT DETECTED Nasal Coronavir HKU1 PCR NOT DETECTED Nasal Coronavir NL63 PCR NOT DETECTED Nasal Coronavir OC43 PCR NOT DETECTED Nasal Enterovir/Rhinovir PCR NOT DETECTED Nasal Influenza B PCR NOT DETECTED Nasal Influenza A PCR NOT DETECTED Nasal Parainfluen 1 PCR NOT DETECTED Nasal Parainfluen 2 PCR NOT DETECTED Nasal Parainfluen 3 PCR NOT DETECTED Nasal Parainfluen 4 PCR NOT DETECTED Nasal RSV (PCR) NOT DETECTED Nasal B.pertussis DNA PCR NOT DETECTED Nasal C.pneumoniae (PCR) NOT DETECTED Dimitris Human Metapneumo PCR NOT DETECTED Nasal M.pneumoniae (PCR) NOT DETECTED Nasal SARS-CoV-2 (PCR) NOT DETECTED 07/22/20 13:13 WBC RBC Hgb Hct MCV MCH MCHC RDW Plt Count MPV Neut # (Auto) Lymph # (Auto) [place] # (Auto) Eos # (Auto) Baso # (Auto) Absolute Nucleated RBC Nucleated RBC % PT 49.0 H INR 4.8 H* Sodium Potassium Chloride Carbon Dioxide Anion Gap BUN Creatinine Estimated GFR (MDRD) Glucose Lactic Acid Calcium Total Bilirubin AST ALT Alkaline Phosphatase Troponin I High Sens B-Natriuretic Peptide Total Protein Albumin Globulin Albumin/Globulin Ratio Lipase Nasal Adenovirus (PCR) Nasal B. parapertussis DNA (PCR) Nasal Coronavir 229E PCR Nasal Coronavir HKU1 PCR Nasal Coronavir NL63 PCR Nasal Coronavir OC43 PCR Nasal Enterovir/Rhinovir PCR Nasal Influenza B PCR Nasal Influenza A PCR Nasal Parainfluen 1 PCR Nasal Parainfluen 2 PCR Nasal Parainfluen 3 PCR Nasal Parainfluen 4 PCR Nasal RSV (PCR) Nasal B.pertussis DNA PCR Nasal C.pneumoniae (PCR) Dimitris Human Metapneumo PCR Nasal M.pneumoniae (PCR) Nasal SARS-CoV-2 (PCR) - Rads (name of study) CXR Radiology: Final report received (No acute cardiopulmonary abnormality) PD MEDICAL DECISION MAKING - ED course Complexity details: reviewed results, re-evaluated patient, considered differential, d/w patient, d/w emergency management consultant (Dr. Reddy Cardiology ) ED course: 84-year-old female presents to the emergency department for evaluation of worsening lower leg edema and shortness of air. This is in the setting of known tricuspid and aortic valve repair both status post recent clipping. She was recently increased on her Lasix from 40 mg daily to 60 mg daily. This started 2 days ago. Despite that her lower extremity swelling has worsened. X-ray of the chest does not show any acute focal opacities, no findings to suggest pulmonary edema or pleural effusion. On cardiopulmonary auscultation she is clear without any wheeze or rhonchi. Her labs do reveal a mild BUN and creatinine increased to 1.7. She also has a BNP elevated greater than 900 but this appears to be within her usual range. Her high-sensitivity troponin is 22. Her EKG shows atrial fib. Elevated trop most likely is a mild leak given her heart failure. Her dyspnea at this time may be secondary to worsening tricuspid valve vailure limiting forward pulmonary flow, thus worsening lower extremity edema. The noted BUN and creatinine rise may be related to diuresis or worsening aortic valve insufficiency as well. I discussed this case at length with Dr. Reddy [facility] sales support engineer. Though she does have a rising BUN and creatinine he feels that further increasing her diuretics is indicated. She does have a follow-up appointment with [facility] scheduled for next week at which time they will repeat her echo as well as her labs. He did offer transfer and evaluation at [facility] if patient wanted this. I did spend a fair amount of time discussing the symptoms and findings with the patient. At this time she feels that increasing her Lasix to 80 mg daily and monitoring her symptoms at home is appropriate. She does not wish to be transferred at this time. Patient did receive an albuterol inhaler while at the bedside and she did report some mild improvement in her dyspnea therefore we will write a prescription for albuterol. I will also write a prescription to increase her Lasix to 80 mg daily. Emergent return precautions were discussed for worsening edema, worsening shortness of air, any chest pain. Patient did have an INR 4.8 today. She was advised to abstain from her Coumadin for 2 days before resuming at her regular dose of 4 mg daily Departure - Departure Disposition: Home, Self Care Clinical Impression: Shortness of breath, Renal insufficiency, Elevated INR Tricuspid valve regurgitation Qualifiers: Cardiac valve disease etiology: etiology unspecified Qualified Code(s): I07.1 - Rheumatic tricuspid insufficiency CHF (congestive heart failure) Qualifiers: Heart failure type: unspecified Heart failure chronicity: acute on chronic Qualified Code(s): I50.9 - Heart failure, unspecified Condition: Serious Prescriptions: Albuterol Sulf [Ventolin Hfa Inhaler] 1 - 2 puffs INH Q4HR PRN #1 inhaler PRN Reason: Shortness Of Air/Wheezing Furosemide [Lasix] 80 mg PO DAILY #60 tablet Comments: Daja, As we discussed your shortness of air may be related to your tricuspid valve not functioning as well as it should. I did discuss this case extensively with Dr. Reddy a sales support engineer at [facility]. At this time lets increase your Lasix to 80 mg daily. Your kidney function today is a little worse than it was on your most recent labs. This was also discussed with [facility] however increasing your diuresis is still recommended. It is very important that you continue to follow-up with [facility] next week. At that time they can repeat your labs as well as your echocardiogram. If at any point between now and then you have worsening shortness of air, worsening leg swelling, develop any fevers or cough, or feel that your symptoms are not improving the way you would like please return immediately to the ER. Your INR is 4.8 today. Please hold your Coumadin for 2 days and then begin taking regularly as you were Discharge Date/Time: 07/22/20 15:17
[2020-07-22 12:38] LABS: ALBUMIN 4.6 g/dL (3.2-5.5); ALBUMIN/GLOBULIN RATIO 1.2 (1.0-2.2); BILIRUBIN,TOTAL 1.5 mg/dL (0.2-1.0); CALCIUM 10.2 mg/dL (8.5-10.3); CREATININE 1.7 mg/dL (0.4-1.0); TOTAL PROTEIN 8.5 g/dL (6.7-8.2)
[2020-07-22] MEDS ORDERED: FUROSEMIDE 40 MG/4 ML VIAL IVP STA (12:47)
[2020-07-22] MEDS ORDERED: ALBUTEROL NEB 2.5 MG/3 ML INH STA (13:03)
[2020-07-22] MEDS ORDERED: ALBUTEROL 1 PUFF INH STA (13:24)
[2020-07-22 13:32] LABS: C. PNEUMONIAE- RESP PCR PANEL NOT DETECTED
[2020-07-22 13:33] LABS: INR 4.8 (0.8-1.2)
[2020-07-22 15:01] VITALS: BP 121/56
== END 2020-07-22 15:17 | disposition home or self-care (01) ==
LOC: ED 11:49
DX: I07.1 Rheumatic tricuspid insufficiency (principal); I11.0 Hypertensive heart disease with heart failure; I50.9 Heart failure, unspecified; I48.91 Unspecified atrial fibrillation; Z79.01 Long term (current) use of anticoagulants; Z95.1 Presence of aortocoronary bypass graft; Z95.4 Presence of other heart-valve replacement
CPT/HCPCS: 0202U; 36415; 80053; 83605; 83690; 83880; 84484; 85025; 85610; 93005; 94640; 94664; 96374; 99284

== ENCOUNTER 2020-09-09 08:00 | Outpatient (CLI) | payer MEDICARE ==
[2020-09-09 15:30] LABS: CALCIUM 9.9 mg/dL (8.5-10.3); CREATININE 1.7 mg/dL (0.4-1.0); MAGNESIUM 2.5 mg/dL (1.7-2.8)
== END 2020-09-09 23:59 | disposition home or self-care (01) ==
LOC: LAB 08:00
PROVIDERS: ATTEND Specialist
DX: I10 Essential (primary) hypertension (principal); I48.0 Paroxysmal atrial fibrillation; I25.10 Atherosclerotic heart disease of native coronary artery without angina pectoris
CPT/HCPCS: 36415; 80048; 83735

== ENCOUNTER 2020-09-28 14:20 | Outpatient (CLI) | payer MEDICARE ==
[2020-09-28 14:48] LABS: CALCIUM 10.4 mg/dL (8.5-10.3); CREATININE 1.5 mg/dL (0.4-1.0); MAGNESIUM 2.5 mg/dL (1.7-2.8)
== END 2020-09-28 14:21 | disposition home or self-care (01) ==
LOC: LAB 14:20
PROVIDERS: ATTEND Specialist
DX: I10 Essential (primary) hypertension (principal); I25.10 Atherosclerotic heart disease of native coronary artery without angina pectoris
CPT/HCPCS: 36415; 80048; 83735

== ENCOUNTER 2020-10-14 10:50 | Outpatient (CLI) | payer MEDICARE | END 2020-10-14 10:51 | disposition critical access hospital (66) | LOC: EMS 10:50 | PROVIDERS: ATTEND Emergency Medicine | DX: R55 Syncope and collapse (principal); R07.81 Pleurodynia; M54.89 Other dorsalgia; R06.09 Other forms of dyspnea; R11.0 Nausea; W18.09XA Striking against other object with subsequent fall, initial encounter; Y92.000 Kitchen of unspecified non-institutional (private) residence as the place of occurrence of the external cause | CPT/HCPCS: A0425; A0429 ==

== ENCOUNTER 2020-10-14 11:01 | Emergency (ER) | payer MEDICARE ==
[2020-10-14] MEDS ORDERED: MORPHINE 2 MG/ML CARPUJECT IVP STA ×3 (11:20→14:29)
[2020-10-14] MEDS ORDERED: LACTATED RINGERS 500 ML IV STA (11:21)
[2020-10-14] MEDS ORDERED: ONDANSETRON 4 MG/2 ML VIAL IVP STA (11:21)
--- NOTE | 2020-10-14 11:33 | ED Physician Documentation ---
History of Present Illness - Stated complaint Stated Complaint: SYNCOPE - History obtained from History obtained from: Patient - Additonal information Additional information: 85-year-old woman with past medical history of atrial fibrillation on Coumadin, CHF, presents with syncopal episode around 8:30 AM this morning falling onto her left shoulder with subsequent left rib and collarbone pain. Constant, sharp, worse with deep breathing, nonradiating, severe. Patient states she became lightheaded and slumped to the ground. does not think she hit her head. patient states her lasix was increased recently and she is worried she has been diuresing too much, having lost about 15 lbs in the past month that she attributes to water weight. denies cp, nausea, dizziness at present. 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 HEENT: None Psych: None Musculoskeletal: Osteoporosis Derm: None - Past Surgical History Past Surgical History: Yes /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: Mastectomy Cardiovascular: CABG, Valve replacement - Present Medications Home Medications: Ambulatory Orders Medication Instructions Recorded Confirmed Amlodipine Besylate mg PO DAILY 09/10/13 05/16/16 Warfarin [Coumadin] 5 mg PO DAILY@1400 09/10/13 07/22/20 Metoprolol Tartrate mg PO BID 08/22/14 05/16/16 Atorvastatin [Lipitor] mg PO QPM 05/16/16 05/16/16 Cholecalciferol (Vitamin D3) units PO DAILY 05/16/16 05/16/16 [Vitamin D3] Potassium Chloride meq PO DAILY 05/16/16 05/16/16 Albuterol Sulf [Ventolin Hfa 1 - 2 puffs INH Q4HR PRN #1 inhaler 07/22/20 Inhaler] Cefadroxil [Duricef] 1,000 mg PO BID 07/22/20 07/22/20 Furosemide [Lasix] 40 mg PO DAILY 07/22/20 Furosemide [Lasix] 80 mg PO DAILY #60 tablet 07/22/20 Magnesium 07/22/20 Spironolactone [Aldactone] 07/22/20 - Allergies Allergies/Adverse Reactions: Allergies Allergy/AdvReac Type Severity Reaction Status Date / Time codeine AdvReac Unknown Nausea Verified 10/14/20 11:26 - Social History Does the pt smoke?: No Smoking Status: Never smoker Does the pt drink ETOH?: Yes Does the pt have substance abuse?: No - Immunizations Immunizations are current?: Yes - POLST Patient has POLST: No PD ED PE NORMAL - Vitals Vital signs reviewed: Yes - General General: Alert and oriented X 3, Well developed/nourished, Other (moderate distress) - HEENT HEENT: Atraumatic, PERRL, EOMI - Neck Neck: Supple, no meningeal sign - Cardiac Cardiac: RRR, Other (L lateral ribcage ttp) - Respiratory Respiratory: Other (coarse breath sounds bilaterally) - Abdomen Abdomen: Non tender, Non distended, Other (pelvis stable) - Back Back: No spinal TTP - Derm Derm: Normal color, Warm and dry - Extremities Extremities: No deformity, No tenderness to palpate, Normal ROM s pain, No edema - Neuro Neuro: Alert and oriented X 3, cathode builder 2-12 intact, No motor deficit, No sensory deficit - Psych Psych: Normal mood, Normal affect Results - Vitals Vitals: Vital Signs - 24 hr 10/14/20 10/14/20 10/14/20 11:01 11:30 12:40 Temperature 36.7 C 36.8 C Heart Rate 64 70 69 Respiratory 18 18 21 Rate Blood Pressure 140/63 H 133/63 H 124/69 O2 Saturation 97 95 97 10/14/20 10/14/20 10/14/20 13:00 14:12 14:30 Temperature Heart Rate 68 66 99 Respiratory 20 12 20 Rate Blood Pressure 126/56 L 124/60 132/73 H O2 Saturation 95 92 95 10/14/20 10/14/20 10/14/20 15:00 15:30 16:00 Temperature Heart Rate 96 104 H 105 H Respiratory 12 20 20 Rate Blood Pressure 117/60 102/72 123/98 H O2 Saturation 93 89 L 94 10/14/20 17:30 Temperature Heart Rate 98 Respiratory 18 Rate Blood Pressure 117/75 O2 Saturation 97 Oxygen O2 Source Room air Oxygen Flow Rate 2 - EKG (time done) 1129 Rate: Rate (enter#) (68) Rhythm: NSR Other comments: Other comments (qt/qtc 465/495) Compare to prior EKG: Other (old inferior and anterior infarcts on 07/22/20 ekg. ) - Labs Labs: Laboratory Tests 10/14/20 10/14/20 10/14/20 11:17 12:38 13:18 WBC 10.8 RBC 5.69 H Hgb 15.6 Hct 47.3 H MCV 83.1 MCH 27.4 MCHC 33.0 RDW 19.7 H Plt Count 167 MPV 9.6 Neut # (Auto) 8.1 H Lymph # (Auto) 1.6 [place] # (Auto) 0.8 Eos # (Auto) 0.2 Baso # (Auto) 0.0 Absolute Nucleated RBC 0.00 Nucleated RBC % 0.0 PT 34.5 H INR 3.3 H APTT 33.0 Sodium Potassium Chloride Carbon Dioxide Anion Gap BUN Creatinine Estimated GFR (MDRD) Glucose Calcium Total Bilirubin AST ALT Alkaline Phosphatase Troponin I High Sens 32.9 H* Total Protein Albumin Globulin Albumin/Globulin Ratio Lipase Nasal Adenovirus (PCR) Nasal B. parapertussis DNA (PCR) Nasal Coronavir 229E PCR Nasal Coronavir HKU1 PCR Nasal Coronavir NL63 PCR Nasal Coronavir OC43 PCR Nasal Enterovir/Rhinovir PCR Nasal Influenza B PCR Nasal Influenza A PCR Nasal Parainfluen 1 PCR Nasal Parainfluen 2 PCR Nasal Parainfluen 3 PCR Nasal Parainfluen 4 PCR Nasal RSV (PCR) Nasal B.pertussis DNA PCR Nasal C.pneumoniae (PCR) Dimitris Human Metapneumo PCR Nasal M.pneumoniae (PCR) Nasal SARS-CoV-2 (PCR) 10/14/20 10/14/20 10/14/20 13:18 14:17 17:03 WBC RBC Hgb Hct MCV MCH MCHC RDW Plt Count MPV Neut # (Auto) Lymph # (Auto) [place] # (Auto) Eos # (Auto) Baso # (Auto) Absolute Nucleated RBC Nucleated RBC % PT INR APTT Sodium 132 L Potassium 3.8 Chloride 94 L Carbon Dioxide 26 Anion Gap 12.0 BUN 33 H Creatinine 1.3 H Estimated GFR (MDRD) 39 L Glucose 115 H Calcium 9.5 Total Bilirubin 2.0 H AST 63 H ALT 41 Alkaline Phosphatase 131 H Troponin I High Sens 31.6 H* Total Protein 7.5 Albumin 3.8 Globulin 3.7 Albumin/Globulin Ratio 1.0 Lipase 30 Nasal Adenovirus (PCR) NOT DETECTED Nasal B. parapertussis DNA (PCR) NOT DETECTED Nasal Coronavir 229E PCR NOT DETECTED Nasal Coronavir HKU1 PCR NOT DETECTED Nasal Coronavir NL63 PCR NOT DETECTED Nasal Coronavir OC43 PCR NOT DETECTED Nasal Enterovir/Rhinovir PCR NOT DETECTED Nasal Influenza B PCR NOT DETECTED Nasal Influenza A PCR NOT DETECTED Nasal Parainfluen 1 PCR NOT DETECTED Nasal Parainfluen 2 PCR NOT DETECTED Nasal Parainfluen 3 PCR NOT DETECTED Nasal Parainfluen 4 PCR NOT DETECTED Nasal RSV (PCR) NOT DETECTED Nasal B.pertussis DNA PCR NOT DETECTED Nasal C.pneumoniae (PCR) NOT DETECTED Dimitris Human Metapneumo PCR NOT DETECTED Nasal M.pneumoniae (PCR) NOT DETECTED Nasal SARS-CoV-2 (PCR) NOT DETECTED PD MEDICAL DECISION MAKING - ED course ED course: 85-year-old woman presents status post syncopal episode with collapse and multiple traumatic injuries, evaluated by our general surgeon Dr. Meléndez and unable to admit here given the extent of her injuries. Will call [facility] for transfer. Elevated troponin without acute EKG changes. Repeat EKG unchanged. Repeat trop stable. Will hold aspirin in the setting of hemothorax. vitamin K administered for elevated INR in setting of small hemothorax. 6pm - d/w [facility]. receiving surgeon Dr. Pederson aware. receiving ED doc Dr. Oh will await patient for ED-ED transfer. - Critical Care Time(min): 30 Comments: I have personally performed a history, physical exam, and my own medical decision making. Upon my evaluation, this patient had a high probability of imminent or life- threatening deterioration due to multiple traumatic injuries, which required my direct attention, intervention, and personal management. I have personally provided 30 minutes of critical care time exclusive of time spent on separately billable procedures. Time includes review of laboratory data, radiology results, discussion with consultants, and monitoring for potential decompensation. Interventions were performed as documented above. Time Includes: Direct patient care, Review records, Reassess patient, Document care, Coordinate care, Medical consult (surgery Dr. Meléndez) Data interpretation: Labs, CXR, Prior EKG Departure - Departure Disposition: 02 Transfer Acute Care Hosp Clinical Impression: Elevated troponin, Multiple rib fractures, Hemothorax, Pneumothorax, Clavicle fracture, Compression fracture of T8 vertebra, Syncope
[2020-10-14] MEDS ORDERED: IOVERSOL 320 100 ML VIAL IVP ONE (11:39)
[2020-10-14 11:41] LABS: BASOPHILS % (AUTO) 0.4 %; EOSINOPHILS # (AUTO) 0.2 10^3/uL (0.0-0.7); EOSINOPHILS % (AUTO) 1.7 %; HCT - HEMATOCRIT 47.3 % (37.0-47.0); HGB - HEMOGLOBIN 15.6 g/dL (12.0-16.0); LYMPHOCYTES # (AUTO) 1.6 10^3/uL (1.5-3.5); LYMPHOCYTES % (AUTO) 14.6 %; MEAN CORPUSCULAR HEMOGLOBIN 27.4 pg (27.0-31.0); MEAN CORPUSCULAR VOLUME 83.1 fL (81.0-99.0); MEAN PLATELET VOLUME 9.6 fL (7.9-10.8); MONOCYTES # (AUTO) 0.8 10^3/uL (0.0-1.0); MONOCYTES % (AUTO) 7.4 %; NEUTROPHILS # (AUTO) 8.1 10^3/uL (1.5-6.6); NEUTROPHILS % (AUTO) 75.2 %; PLT - PLATELET COUNT 167 10^3/uL (130-450); RED BLOOD COUNT 5.69 10^6/uL (4.20-5.40); RED CELL DISTRIBUTION WIDTH 19.7 % (12.0-15.0); WHITE BLOOD COUNT 10.8 x10^3/uL (4.8-10.8)
[2020-10-14 12:56] LABS: INR 3.3 (0.8-1.2); PT - PROTHROMBIN TIME 34.5 secs (9.9-12.6)
--- NOTE | 2020-10-14 13:01 | XRAY Report ---
PROCEDURE: Chest 1 View X-Ray INDICATIONS: modified trauma TECHNIQUE: One view of the chest was acquired. COMPARISON: CT chest same day. FINDINGS: Surgical changes and devices: Sternotomy wires, valve prosthesis (likely aortic valve).. Lungs and pleura: No pleural effusions or pneumothorax. Lungs are clear. Mediastinum: Mediastinal contours appear normal. Heart size is normal. Bones and chest wall: No suspicious bony lesions. Midshaft left clavicular fracture near the juncti on of the middle and distal thirds. This is nondisplaced. Overlying soft tissues appear unremarkable. IMPRESSION: Chronic mild interstitial prominence, no pneumothorax found. Vertically oriented left clavicular frac ture at the junction of the middle and distal thirds of the left clavicle. Postsurgical changes at th e chest. Reviewed by: Jose Russ MD on 10/14/2020 1:00 PM PST Approved by: Jose Russ MD on 10/14/2020 1:00 PM PST Station ID: [id number]
--- NOTE | 2020-10-14 13:06 | CT Report ---
PROCEDURE: HEAD WO INDICATIONS: Head trauma, mod-severe TECHNIQUE: Noncontrast 4.5 mm thick angled axial sections acquired from the foramen magnum to the vertex. For r adiation dose reduction, the following was used: automated exposure control, adjustment of mA and/or kV according to patient size. COMPARISON: Correlation is made with the accompanying cervical spine CT, 10/14/2020 FINDINGS: Image quality: Excellent. CSF spaces: Basal cisterns are patent. No extra-axial fluid collections. Ventricles are normal in size and shape. Brain: No midline shift. No intracranial masses or hemorrhage. Lawler-white matter interface is norm al. Symmetric calcification can be seen of the basal ganglia, which is considered to be within patel l limits for age. Brain parenchymal volume loss and chronic small vessel ischemic change can also be seen. Skull and face: Calvarium and visualized facial bones are intact, without suspicious lesions. Sinuses: Visualized sinuses and mastoids are clear. IMPRESSION: No significant intracranial abnormality is seen. No intracranial hemorrhage is seen. Age-appropriate brain parenchymal volume loss and chronic small vessel ischemic change can be seen. Reviewed by: Louie Paz MD on 10/14/2020 12:04 PM [place] Approved by: Louie Paz MD on 10/14/2020 12:04 PM [facility]UST Station ID: [id number]
--- NOTE | 2020-10-14 13:07 | CT Report ---
PROCEDURE: CERVICAL SPINE WO INDICATIONS: Neck trauma, midline tenderness TECHNIQUE: Noncontrast 3 mm thick sections acquired from the skull base to the T4 level. Sagittal and coronal r eformats were then constructed. For radiation dose reduction, the following was used: automated exp osure control, adjustment of mA and/or kV according to patient size. COMPARISON: Correlation is made with the accompanying head CT, 10/14/2020. FINDINGS: Image quality: Excellent. Bones: No fractures or dislocations. Visualized superior ribs are intact. Degenerative changes are seen throughout, including moderate to severe disc space narrowing at C4-C5 and C5-C6. Focal degenerative change can also be seen involving the C1-C2 interface anteriorly. Milde r degenerative changes are seen elsewhere. Soft tissues: Prevertebral soft tissues are normal in thickness. No paravertebral hematomas. No ap ical pneumothoraces. Within the right upper lobe anteriorly, there is focal consolidation seen, with dense calcification. Mild pleural thickening can be seen involving the left lung apex posteriorly. Atherosclerotic calcification is seen. IMPRESSION: Negative for acute fracture. Cervical spine degenerative changes are seen, which are worst at C4-C5 and at C5-C6. Reviewed by: Louie Paz MD on 10/14/2020 12:06 PM [facility] Approved by: Louie Paz MD on 10/14/2020 12:06 PM [facility] Station ID: [id number]
--- NOTE | 2020-10-14 13:12 | XRAY Report ---
PROCEDURE: Pelvis 1 View INDICATIONS: trauma TECHNIQUE: Single AP view of the pelvis acquired. COMPARISON: None. FINDINGS: Bones: No acute fractures or dislocations. Generalized osteopenia. No suspicious bony lesions. Deg enerative changes are seen in the included spine. Soft tissues: Visualized bowel gas pattern is normal. No suspicious soft tissue calcifications. IMPRESSION: No acute osseous abnormality. If there is clinical concern or persistent symptoms, addit ional imaging such as repeat radiographs or advanced imaging (e.g. CT, MRI) may be helpful for furthe r evaluation. Reviewed by: Jose Luis Siu MD on 10/14/2020 1:11 PM PST Approved by: Jose Luis Siu MD on 10/14/2020 1:11 PM PST Station ID: [id number]
[2020-10-14 13:29] LABS: ALBUMIN 3.8 g/dL (3.2-5.5); CALCIUM 9.5 mg/dL (8.5-10.3); CREATININE 1.3 mg/dL (0.4-1.0); POTASSIUM 3.8 mmol/L (3.5-5.0); TOTAL PROTEIN 7.5 g/dL (6.7-8.2)
--- NOTE | 2020-10-14 13:37 | CT Report ---
PROCEDURE: CHEST WO INDICATIONS: L rib pain s/p fall TECHNIQUE: Noncontrast 5 mm thick sections acquired from the pulmonary apices to the posterior costophrenic angl es. 7 mm thick coronal and sagittal MIP reformats were then acquired. For radiation dose reduction, the following was used: automated exposure control, adjustment of mA and/or kV according to patient size. COMPARISON: CT thoracic spine 03/03/2019, CT pulmonary angiogram 05/16/2016. FINDINGS: Image quality: Good. Lungs and pleura: A few small foci of subpleural gas near left-sided rib fractures. This is highly s uspicious for tiny foci of pleural gas. Small left hemothorax. Small areas of groundglass opacity in the left lung. Emphysematous change. Bibasilar atelectasis. Airways are clear. Mediastinum: Heart size is prominent. Aortic valve replacement. No pericardial effusion. No medias tinal adenopathy by size criteria. Ascending aorta measures 3.4 cm. Dense atherosclerotic plaque. Eso phagus is normal in caliber. No hiatal hernia. Bones and chest wall: Left clavicle fracture distal shaft without significant displacement, (4/8). L eft anterior lateral rib fractures of the second and third ribs. Moderate displacement at the second rib. Left posterior fifth rib fracture with moderate displacement. Left posterior sixth rib fracture with mild this placement. Possible left posterior medial nondisplaced eighth rib fracture. Left poste rior medial 11th rib fracture with mild this placement. No suspicious bony lesions. T8 compression fr acture, progressed compared to 2019. Kyphosis. The sternum appears unchanged. Post median sternotomy. No axillary or supraclavicular adenopathy by size criteria. Prior left mastectomy. The thyroid is no rmal in size. Abdomen: Please see separately dictated CT abdomen and pelvis. IMPRESSION: 1. Tiny left pneumothorax versus small pulmonary lacerations. Small left hemothorax. 2. Multiple left-sided rib fractures are appreciated, left 2, 3, 5, 6, 8, 11th. A few the fractures d emonstrate moderate displacement. 3. Left clavicle distal shaft fracture. 4. T8 compression fracture is progressed compared to 2019. 5. Prior left mastectomy. 6. Ascending aortic aneurysm. Aortic valve replacement. Results were communicated to Dr. Rosaura Jackman at 10/14/2020 1:32 PM PST. Reviewed by: Buddy Diallo MD on 10/14/2020 1:35 PM PST Approved by: Buddy Diallo MD on 10/14/2020 1:35 PM PST Station ID: [id number]
--- NOTE | 2020-10-14 13:46 | CT Report ---
PROCEDURE: Abdomen/Pelvis WO INDICATIONS: s/p fall TECHNIQUE: Noncontrast 5 mm thick sections acquired from the diaphragms to the symphysis. 5 mm coronal and sagi ttal reformats were then performed. For radiation dose reduction, the following was used: automated exposure control, adjustment of mA and/or kV according to patient size. COMPARISON: Same day CT chest. CT pulmonary angiogram 05/16/2016. FINDINGS: Image quality: Excellent. Evaluation of the solid parenchymal organs is limited without IV contrast. ABDOMEN: Lung bases: Mild bibasilar atelectasis. Trace left pleural fluid. Slight granuloma at the left lung base. Heart size is enlarged. We see separately dictated CT chest. Solid organs: Liver and spleen are normal in size. Gallbladder is distended. No calcified gallstone s. Pancreas is normal in contours. No adrenal nodules. Kidneys are normal in size, without hydrone phrosis or nephrolithiasis. Peritoneum and bowel: Unenhanced bowel loops demonstrate normal wall thickness and caliber. Divertic ulosis. No free fluid or air. Nodes and vessels: No retroperitoneal or mesenteric adenopathy by size criteria. Aorta and inferior vena cava are normal in caliber. Circumferential calcified atherosclerotic plaque. Miscellaneous: No ventral hernias. PELVIS: Genitourinary: Bladder wall thickness is normal. Anteverted uterus. Miscellaneous: No inguinal hernias or adenopathy. Bones: No suspicious bony lesions. Mild height loss at L2, unchanged. Anterolisthesis of L4 on L5, m ild. Loss of intervertebral disc space height at L4-L5. IMPRESSION: Evaluation for solid parenchymal traumatic injury is limited without IV contrast. No free fluid is identified. No pneumoperitoneum. No acute fractures in the abdomen or pelvis is identified. Please see separately dictated CT chest. Reviewed by: Buddy Diallo MD on 10/14/2020 1:45 PM PST Approved by: Buddy Diallo MD on 10/14/2020 1:45 PM PST Station ID: [id number]
[2020-10-14 15:22] LABS: B. PARAPERTUSSIS- RESP PCR PAN NOT DETECTED; B. PERTUSSIS- RESP PCR PANEL NOT DETECTED; C. PNEUMONIAE- RESP PCR PANEL NOT DETECTED; CORONAVIRUS 229E-RESP PCR NOT DETECTED; CORONAVIRUS HKU1-RESP PCR NOT DETECTED; CORONAVIRUS NL63-RESP PCR NOT DETECTED; CORONAVIRUS OC43-RESP PCR NOT DETECTED; HUMAN METAPNEUMOVIRUS NOT DETECTED; INFLUENZA A- RESP PCR PANEL NOT DETECTED; INFLUENZA B - RESP PCR PANEL NOT DETECTED; M. PNEUMONIAE- RESP PCR PANEL NOT DETECTED; PARAINFLUENZA VIRUS 1 NOT DETECTED; PARAINFLUENZA VIRUS 2 NOT DETECTED; PARAINFLUENZA VIRUS 3 NOT DETECTED; PARAINFLUENZA VIRUS 4 NOT DETECTED; RHINOVIRUS/ENTEROVIRUS NOT DETECTED; RSV- RESP PCR PANEL NOT DETECTED; SARS-CoV-2 -RESP PCR PANEL NOT DETECTED
[2020-10-14] MEDS ORDERED: MORPHINE 2 MG/ML CARPUJECT IVP PRN (15:41)
[2020-10-14] MEDS ORDERED: CHERRY SYRUP 10 ML UDC PO ONE (16:22)
[2020-10-14] MEDS ORDERED: PHYTONADIONE 10 MG/ML AMP PO ONE (16:22)
[2020-10-14] MEDS ORDERED: METOCLOPRAMIDE 10 MG/2 ML VIAL IVP STA (17:55)
--- NOTE | 2020-10-14 19:00 | XRAY Report ---
PROCEDURE: Chest 1 View X-Ray INDICATIONS: ptx interval imaging TECHNIQUE: One view of the chest was acquired. COMPARISON: CT chest 10/14/2020 FINDINGS: Surgical changes and devices: Sternal wires. Lungs and pleura: No pleural effusions or pneumothorax. Lungs are clear. Mediastinum: Mediastinal contours appear normal. Heart size is enlarged. Bones and chest wall: No suspicious bony lesions. Overlying soft tissues appear unremarkable. Acut e appearing fractures are present within the left fourth, fifth and sixth posterior ribs. IMPRESSION: Left rib fractures as above without pneumothorax. The above findings are concordant with preliminary report. Reviewed by: Zayda Stauffer MD on 10/14/2020 5:59 PM [facility] Approved by: Zayda Stauffer MD on 10/14/2020 5:59 PM [facility] Station ID: [id number]
[2020-10-14 19:06] VITALS: BP 135/77
--- NOTE | 2020-10-25 14:41 | XRAY Report ---
PROCEDURE: Shoulder 2 View LT INDICATIONS: TRAUMA/ PT FELL AND IS COMPLAINING OF CLAVICLE PAIN TECHNIQUE: 3 views COMPARISON: None. FINDINGS: There is a mid shaft clavicular fracture, vertically oriented, nondisplaced with no angulation abnorm ality. Osteoarthritic change is moderate at the AC joint and mild to moderate at the glenohumeral josy nt. IMPRESSION: Vertically oriented midshaft left clavicular fracture without abnormal angulation. 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 No additional fracture is found. Reviewed by: Jose Russ MD on 10/14/2020 12:55 PM PST Approved by: Jose Russ MD on 10/14/2020 12:55 PM PST Station ID: [id number]
== END 2020-10-14 19:37 | disposition short-term general hospital (02) ==
LOC: EDUNIT# → ED 11:01
DX: S22.42XA Multiple fractures of ribs, left side, initial encounter for closed fracture (principal); S42.032A Displaced fracture of lateral end of left clavicle, initial encounter for closed fracture; W19.XXXA Unspecified fall, initial encounter; Y93.G1 Activity, food preparation and clean up; Y92.009 Unspecified place in unspecified non-institutional (private) residence as the place of occurrence of the external cause; I48.91 Unspecified atrial fibrillation; Z79.01 Long term (current) use of anticoagulants; I11.0 Hypertensive heart disease with heart failure; I50.9 Heart failure, unspecified; Z95.1 Presence of aortocoronary bypass graft; I25.2 Old myocardial infarction; R77.8 Other specified abnormalities of plasma proteins; Z20.822 Contact with and (suspected) exposure to COVID-19
CPT/HCPCS: 36415; 70450; 71045; 71250; 72125; 72170; 73030; 74176; 80053; 83690; 84484; 85025; 85610; 85730; 87631; 93005; 96361; 96374; 96375; 96376; 99285; 99291; A9270; J2765; J7120; 0202U; 80320

== ENCOUNTER 2020-10-14 19:39 | Outpatient (CLI) | payer MEDICARE | END 2020-10-14 19:40 | disposition short-term general hospital (02) | LOC: EMS 19:39 | DX: S27.2XXA Traumatic hemopneumothorax, initial encounter (principal); S22.42XA Multiple fractures of ribs, left side, initial encounter for closed fracture; S22.069A Unspecified fracture of T7-T8 vertebra, initial encounter for closed fracture; W19.XXXA Unspecified fall, initial encounter; Y93.89 Activity, other specified; Y92.009 Unspecified place in unspecified non-institutional (private) residence as the place of occurrence of the external cause; R55 Syncope and collapse | CPT/HCPCS: A0425; A0426 ==

== ENCOUNTER 2020-11-29 13:42 | Inpatient (IN) | payer MEDICARE ==
--- OUTSIDE RECORDS SUMMARY | 2020-11-29 13:46 | EXTERNAL MEDICAL SUMMARY RPT | Continuity of Care Document ---
:1935 Demographics Phone Unavailable Preferred Language Greenlandic Marital Status Unknown Roman Catholic Affiliation Unknown Race Unknown Ethnic Group Unknown Author Organization [place] Address [address] [phone] Phone Problems date description facility [id number] Essential (primary) hypertension [facility] Social History date description facility [id number]
--- NOTE | 2020-11-29 14:05 | ED Physician Documentation ---
PD HPI DYSPNEA - Stated complaint Stated Complaint: SOA/SHAKES - Chief complaint Chief Complaint: Cardiac - History obtained from History obtained from: Patient - Additional information Additional information: This is an 85-year-old woman with history of mechanical aortic valve replacement 18 years ago, CHF and recently, at the end of September was sent to [place] after a syncopal episode with multiple injuries. She says she had a pacemaker placed there. She does not know if it is an AICD or not. She does not know if her ejection fraction was low. Comes in today with 2 days of feeling like her heart is racing and shortness of breath. She denies chest pain. She does have slightly more pedal edema than normal noting that she is on Aldactone for that. She has a runny nose but no fever or cough. Review of Systems Ten Systems: 10 systems reviewed and negative Constitutional: reports: Fatigue Cardiac: reports: Palpitations. denies: Chest pain / pressure Respiratory: reports: Dyspnea. denies: Cough, Hemoptysis, Wheezing PD PAST MEDICAL HISTORY - Past Medical History Cardiovascular: Congestive heart failure, Hypertension, Atrial fibrillation Respiratory: Pneumonia, Other Neuro: Peripheral neuropathy Endocrine/Autoimmune: None GI: None DIRECTOR OF ORTHOPEDICS: Breast cancer : None HEENT: None Psych: None Musculoskeletal: Osteoporosis Derm: None - Past Surgical History Past Surgical History: Yes /DIRECTOR OF ORTHOPEDICS: Mastectomy Cardiovascular: CABG, Valve replacement - Present Medications Home Medications: Ambulatory Orders Medication Instructions Recorded Confirmed Amlodipine Besylate mg PO DAILY 09/10/13 05/16/16 Warfarin [Coumadin] 5 mg PO DAILY@1400 09/10/13 07/22/20 Metoprolol Tartrate mg PO BID 08/22/14 05/16/16 Atorvastatin [Lipitor] mg PO QPM 05/16/16 05/16/16 Cholecalciferol (Vitamin D3) units PO DAILY 05/16/16 05/16/16 [Vitamin D3] Potassium Chloride meq PO DAILY 05/16/16 05/16/16 Albuterol Sulf [Ventolin Hfa 1 - 2 puffs INH Q4HR PRN #1 inhaler 07/22/20 Inhaler] Cefadroxil [Duricef] 1,000 mg PO BID 07/22/20 07/22/20 Furosemide [Lasix] 40 mg PO DAILY 07/22/20 Furosemide [Lasix] 80 mg PO DAILY #60 tablet 07/22/20 Magnesium 07/22/20 Spironolactone [Aldactone] 07/22/20 - Allergies Allergies/Adverse Reactions: Allergies Allergy/AdvReac Type Severity Reaction Status Date / Time codeine AdvReac Unknown Nausea Verified 11/29/20 13:45 - Social History Does the pt smoke?: No Smoking Status: Never smoker Does the pt drink ETOH?: Yes Does the pt have substance abuse?: No - Immunizations Immunizations are current?: Yes - POLST Patient has POLST: No PD ED PE NORMAL - Vitals Vital signs reviewed: Yes - General General: Alert and oriented X 3, Other (Breathless, but speaking in full sentences) - HEENT HEENT: PERRL, EOMI - Neck Neck: Supple, no meningeal sign, No bony TTP - Cardiac Cardiac: Other (Tachycardic, Loud S1/S2) - Respiratory Respiratory: Clear bilaterally, Other (tachypneic) - Abdomen Abdomen: Soft, Non tender - Back Back: No CVA TTP, No spinal TTP - Derm Derm: Normal color, Warm and dry - Extremities Extremities: Other (Lots of edema LUE from prior mastectomy. 1+ BLE edema.) - Neuro Neuro: Alert and oriented X 3, Normal speech Results - Vitals Vitals: Vital Signs - 24 hr 11/29/20 11/29/20 11/29/20 13:45 13:59 14:18 Temperature 36.5 C 36.6 C Heart Rate 120 H 123 H 122 H Respiratory 20 31 H 36 H Rate Blood Pressure 136/72 H 148/88 H 145/83 H O2 Saturation 92 100 99 11/29/20 11/29/20 14:30 15:00 Temperature Heart Rate 122 H 112 H Respiratory 30 H 17 Rate Blood Pressure 156/89 H 142/79 H O2 Saturation 100 100 Oxygen O2 Source Nasal cannula - EKG (time done) 1352 Rate: Rate (enter#) (121) Rhythm: Sinus tachycardia [place]: Normal QRS: LVH Ischemia: Q waves, Non specific changes. No: ST elevation c/w ischemia, ST depression - Labs Labs: Laboratory Tests 11/29/20 11/29/20 11/29/20 14:19 14:19 14:19 WBC 11.0 H RBC 4.29 Hgb 12.6 Hct 39.0 MCV 90.9 MCH 29.4 MCHC 32.3 RDW 19.8 H Plt Count 197 MPV 10.1 Neut # (Auto) 8.6 H Lymph # (Auto) 1.2 L [place] # (Auto) 1.1 H Eos # (Auto) 0.1 Baso # (Auto) 0.1 Absolute Nucleated RBC 0.00 Nucleated RBC % 0.0 PT 33.9 H INR 3.3 H Sodium 137 Potassium 5.3 H Chloride 105 Carbon Dioxide 21 Anion Gap 11.0 BUN 24 H Creatinine 1.1 H Estimated GFR (MDRD) 47 L Glucose 135 H Calcium 10.2 Magnesium 2.2 Total Bilirubin 1.5 H AST 68 H ALT 32 Alkaline Phosphatase 230 H Troponin I High Sens B-Natriuretic Peptide Total Protein 7.9 Albumin 3.6 Globulin 4.3 H Albumin/Globulin Ratio 0.8 L Lipase 30 11/29/20 11/29/20 14:19 14:19 WBC RBC Hgb Hct MCV MCH MCHC RDW Plt Count MPV Neut # (Auto) Lymph # (Auto) [place] # (Auto) Eos # (Auto) Baso # (Auto) Absolute Nucleated RBC Nucleated RBC % PT INR Sodium Potassium Chloride Carbon Dioxide Anion Gap BUN Creatinine Estimated GFR (MDRD) Glucose Calcium Magnesium Total Bilirubin AST ALT Alkaline Phosphatase Troponin I High Sens 22.4 H* B-Natriuretic Peptide 792 H Total Protein Albumin Globulin Albumin/Globulin Ratio Lipase - Rads (name of study) 1v chest Radiology: EMP read contemporaneously (Congestive changes and mild pulmonary edema. Small left pleural effusion and left basilar atelectasis. Suggestion of left upper lobe contusion and rib fractures with clavicular shaft fracture.) PD MEDICAL DECISION MAKING - ED course ED course: 85-year-old woman with history of A. fib on warfarin, history of aortic stenosis presents with 2 days of shortness of breath and found to be in CHF with breathlessness and vivisble tachypneic /labored breathing. Given IV lasix 80mg IV and nitropaste. Updated her brother in law At her request by phone. Departure - Departure Disposition: 66 [facility] DC/Xfer Clinical Impression: Hx of left mastectomy, Elevated INR, History of atrial fibrillation, Hx of aortic valve replacement, mechanical, Congestive heart failure Condition: Serious
--- OUTSIDE RECORDS SUMMARY | 2020-11-29 14:27 | EXTERNAL MEDICAL SUMMARY RPT | Continuity of Care Document ---
:1935 Demographics Phone Unavailable Preferred Language Egyptian Marital Status Unknown Anabaptist Affiliation Unknown Race Unknown Ethnic Group Unknown Author Organization [place] Address [address] [phone] Phone Problems date description facility [id number] Essential (primary) hypertension [facility] Social History date description facility [id number]
[2020-11-29 14:29] LABS: BASOPHILS # (AUTO) 0.1 10^3/uL (0.0-0.1); BASOPHILS % (AUTO) 0.5 %; EOSINOPHILS # (AUTO) 0.1 10^3/uL (0.0-0.7); EOSINOPHILS % (AUTO) 0.5 %; HGB - HEMOGLOBIN 12.6 g/dL (12.0-16.0); LYMPHOCYTES # (AUTO) 1.2 10^3/uL (1.5-3.5); MEAN CORPUSCULAR HEMOGLOBIN 29.4 pg (27.0-31.0); MEAN CORPUSCULAR HGB CONC 32.3 g/dL (32.0-36.0); MEAN CORPUSCULAR VOLUME 90.9 fL (81.0-99.0); MEAN PLATELET VOLUME 10.1 fL (7.9-10.8); MONOCYTES # (AUTO) 1.1 10^3/uL (0.0-1.0); MONOCYTES % (AUTO) 9.8 %; NEUTROPHILS # (AUTO) 8.6 10^3/uL (1.5-6.6); PLT - PLATELET COUNT 197 10^3/uL (130-450); RED BLOOD COUNT 4.29 10^6/uL (4.20-5.40); RED CELL DISTRIBUTION WIDTH 19.8 % (12.0-15.0)
[2020-11-29 14:41] LABS: INR 3.3 (0.8-1.2); PT - PROTHROMBIN TIME 33.9 secs (9.9-12.6)
--- NOTE | 2020-11-29 14:45 | XRAY Report ---
PROCEDURE: Chest 1 View X-Ray INDICATIONS: dyspnea TECHNIQUE: One view of the chest was acquired. COMPARISON: 10/14/2020 FINDINGS: Surgical changes and devices: Right chest wall pacemaker leads are seen in the region of right atrium and right ventricle. Median sternotomy wires and surgical clips are seen. Prosthetic heart valve is also seen.. Lungs and pleura: Small left pleural effusion and left basilar atelectasis is seen. Ill-defined opaci ty in lateral periphery of left upper to midlung field is seen suggestive of pulmonary contusion. Pul monary vascular congestion and mild pulmonary edema is also seen. No gross pneumothorax. Mediastinum: Mediastinal contours appear normal. Heart size is enlarged. Bones and chest wall: Left posterior lateral third through sixth rib fractures are seen. Fractured di stal left clavicular shaft is also noted. Overlying soft tissues appear unremarkable. IMPRESSION: 1. Congestive changes and mild pulmonary edema. Small left pleural effusion and left basilar atelecta sis. 2.Suggestion of contusion in lateral periphery of left upper to midlung field with multiple left post erior lateral rib fractures. Left distal clavicular shaft fracture. No gross pneumothorax. Reviewed by: Jeffery Kenney MD on 11/29/2020 1:44 PM [facility] Approved by: Jeffery Kenney MD on 11/29/2020 1:44 PM [facility] Station ID: [id number]
[2020-11-29 14:57] LABS: ALBUMIN 3.6 g/dL (3.2-5.5); ALBUMIN/GLOBULIN RATIO 0.8 (1.0-2.2); BILIRUBIN,TOTAL 1.5 mg/dL (0.2-1.0); CALCIUM 10.2 mg/dL (8.5-10.3); CREATININE 1.1 mg/dL (0.4-1.0); MAGNESIUM 2.2 mg/dL (1.7-2.8); POTASSIUM 5.3 mmol/L (3.5-5.0); TOTAL PROTEIN 7.9 g/dL (6.7-8.2)
[2020-11-29] MEDS ORDERED: NITROGLYCERIN 2% PASTE TOP STA (14:58)
[2020-11-29] MEDS ORDERED: FUROSEMIDE 100 MG/10 ML VIAL IVP STA (14:58)
[2020-11-29] MEDS ORDERED: SODIUM CHLORIDE FLUSH 0.9% 10 ML SYRINGE IVP PRN (15:51)
[2020-11-29] MEDS ORDERED: ACETAMINOPHEN 325 MG TABLET PO PRN (15:51)
[2020-11-29 15:54] LABS: B. PARAPERTUSSIS- RESP PCR PAN NOT DETECTED; B. PERTUSSIS- RESP PCR PANEL NOT DETECTED; C. PNEUMONIAE- RESP PCR PANEL NOT DETECTED; CORONAVIRUS 229E-RESP PCR NOT DETECTED; CORONAVIRUS HKU1-RESP PCR NOT DETECTED; CORONAVIRUS NL63-RESP PCR NOT DETECTED; CORONAVIRUS OC43-RESP PCR NOT DETECTED; HUMAN METAPNEUMOVIRUS NOT DETECTED; INFLUENZA A- RESP PCR PANEL NOT DETECTED; INFLUENZA B - RESP PCR PANEL NOT DETECTED; M. PNEUMONIAE- RESP PCR PANEL NOT DETECTED; PARAINFLUENZA VIRUS 1 NOT DETECTED; PARAINFLUENZA VIRUS 2 NOT DETECTED; PARAINFLUENZA VIRUS 3 NOT DETECTED; PARAINFLUENZA VIRUS 4 NOT DETECTED; RHINOVIRUS/ENTEROVIRUS NOT DETECTED; RSV- RESP PCR PANEL NOT DETECTED; SARS-CoV-2 -RESP PCR PANEL NOT DETECTED
--- NOTE | 2020-11-29 16:02 | HISTORY & PHYSICAL EXAMINATION ---
Chief Complaint - Chief Complaint Chief Complaint: dyspnea History of Present Illness - Admitted From Admitted From:: Replaced By [facility] ED - History Obtained From Records Reviewed: yes History obtained from: patient - History of Present Illness HPI Comment/Other: Patient is an 85-year-old female with medical history significant for CHF, hyperlipidemia, atrial fibrillation, hypertension, history of breast cancer status post radical left mastectomy, chronic left upper extremity lymphedema secondary to mastectomy, recent pacemaker placement, history of mechanical aortic valve who presented to the ED with complaint of dyspnea which started yesterday. She gets physical therapy at home and when the therapist came in today he found her gasping for breath. Her symptoms seem to worsen with any exertion. Her primary care physician Dr. Garland was contacted and advised the patient present to the ED. A couple weeks ago she had presented to [facility] ED after a syncopal episode at home from which she fractured her left clavicle. She was transferred to [facility] where she had a pacemaker placed on the right side. The pacemaker could not be done on the left side due to her left clavicle fracture and the radical mastectomy on the left side with associated chronic lymphedema. Work-up in the ED included a BNP which showed a troponin of 792. She also had a troponin of 22.4. She has greater than 3+ edema in her left upper extremity and +1 lower extremity edema. There is appreciable movement on the right side but decreased breath sounds on the left on auscultation. As a result of her clinical findings she is being admitted for further treatment. History - Past Medical History Cardiovascular: reports: Congestive heart failure, Hypertension, High cholesterol, Atrial fibrillation Respiratory: reports: Other Neuro: reports: Peripheral neuropathy Endocrine/Autoimmune: reports: None GI: reports: None ASSURANCE OFFICER: reports: Breast cancer : reports: None HEENT: reports: None Psych: reports: None Musculoskeletal: reports: Osteoporosis Derm: reports: None MRSA Hx?: No Other Past Medical History: Chronic Left Upper Extremity Lymphedema - Past Surgical History General: reports: Appendectomy /ASSURANCE OFFICER: reports: Mastectomy (Left, radical) Cardiovascular: reports: Valve replacement (mechanical aortic valve), Pacemaker - Family & Social History Family History Comment/Other: Her mother from breast cancer at age 64. Father had CVA. Social History Notes: She does not use tobacco products or recreational substan yamel. She consumes alcohol occasionally. She lives alone but her former [id number] lives in the apartment upstairs. She is independent of activities of daily living. - POLST Patient has POLST: No POLST Status: DNR Meds/Allgy - Home Medications Home Medications: Ambulatory Orders Medication Instructions Recorded Confirmed Amlodipine Besylate mg PO DAILY 09/10/13 05/16/16 Warfarin [Coumadin] 5 mg PO DAILY@1400 09/10/13 07/22/20 Metoprolol Tartrate mg PO BID 08/22/14 05/16/16 Atorvastatin [Lipitor] mg PO QPM 05/16/16 05/16/16 Cholecalciferol (Vitamin D3) units PO DAILY 05/16/16 05/16/16 [Vitamin D3] Potassium Chloride meq PO DAILY 05/16/16 05/16/16 Albuterol Sulf [Ventolin Hfa 1 - 2 puffs INH Q4HR PRN #1 inhaler 07/22/20 Inhaler] Cefadroxil [Duricef] 1,000 mg PO BID 07/22/20 07/22/20 Furosemide [Lasix] 40 mg PO DAILY 07/22/20 Furosemide [Lasix] 80 mg PO DAILY #60 tablet 07/22/20 Magnesium 07/22/20 Spironolactone [Aldactone] 07/22/20 - Allergies Allergies/Adverse Reactions: Allergies Allergy/AdvReac Type Severity Reaction Status Date / Time codeine AdvReac Unknown Nausea Verified 11/29/20 13:45 Review of Systems - Constitutional Constitutional: denies: Fatigue, Fever, Chills - Eyes Eyes: denies: Pain, Dipolpia - Ears, Nose & Throat Ears, Nose & Throat: denies: Sore throat, Hoarseness - Cardiovascular Cariovascular: reports: Irregular heart rate, Edema, Exertional dyspnea. denies: Chest pain, Lightheadedness, Syncope - Respiratory Respiratory: reports: SOB at rest, SOB with exertion. denies: Cough, Sputum production, Wheezing - Gastrointestinal Gastrointestinal: denies: Abdominal pain, Abdominal distention, Constipation, Nausea, Vomiting, Coffee grounds emesis, Reflux/heartburn - Musculoskeletal Musculoskeletal: denies: Muscle pain, Back pain, Muscle aches - Integumentary Integumentary: denies: Rash, Pruritis, Lesions - Neurological Neurological: denies: General weakness, Focal weakness, Headache, Dizziness - Psychiatric Psychiatric: denies: Depression, Anxiety - Endocrine Endocrine: denies: Polyuria, Polydypsia - Hematologic/Lymphatic Hematologic/Lymphatic: denies: Anemia, Bruising Prior Level of Functionality: She is independent of activities of daily living. Exam - Vital Signs Vital Signs: Vital Signs x48h Temp Pulse Resp BP Pulse Ox 11/29/20 15:30 121 H 28 H 146/87 H 100 11/29/20 15:00 112 H 17 142/79 H 100 11/29/20 14:30 122 H 30 H 156/89 H 100 11/29/20 14:18 122 H 36 H 145/83 H 99 11/29/20 13:59 36.6 C 123 H 31 H 148/88 H 100 11/29/20 13:45 36.5 C 120 H 20 136/72 H 92 - Physical Exam General Appearance: positive: Alert, Mild distress Eyes Bilateral: positive: PERRL, EOMI ENT: positive: No signs of dehydration Neck: positive: No JVD, Trachea midline Respiratory: positive: Chest non-tender, Other (decrased breath sounds onleft). negative: Wheezes, Rales, Rhonchi Cardiovascular: positive: Irregularly irregular, Systolic murmur (loud and harsh sounding) Abdomen: positive: Non-tender, No organomegaly, Nml bowel sounds, No distention. negative: Guarding, Rebound Back: positive: Nml inspection Skin: positive: Color nml, No rash, Warm, Dry Extremities: positive: Pedal edema, Other (3+ left upper extremity lymphedema) Neurologic/Psychiatric: positive: Oriented x3, Mood/affect nml Conclusion/Plan - Problem List (1) CHF exacerbation Conclusion/Plan: Was given Lasix 80 mg IV x1 in the ED. We will continue Lasix 40 mg IV twice daily starting tomorrow morning. Spironolactone 25 mg p.o. daily ordered. Daily weights. 2D echocardiogram ordered for the morning. Patient recently had a pacemaker placed about 2 weeks ago at [facility]. Will attempt to get records. (2) Atrial fibrillation Conclusion/Plan: Patient is slightly tachycardic with a heart rate between 100-1 20s. We will resume patient's metoprolol tartrate 50 mg p.o. twice daily She is on Coumadin 2 mg p.o. daily. Will continue. We will check INR daily. (3) Hx of aortic valve replacement, mechanical Conclusion/Plan: On Coumadin. Will check INR daily. (4) Hypertension Conclusion/Plan: On amlodipine 5 mg p.o. daily, metoprolol tartrate 50 mg p.o. twice daily, Lasix 40 mg p.o. twice daily and spironolactone 25 mg p.o. daily (5) Lymphedema Conclusion/Plan: Chronic. Left upper extremity. Secondary to radical left mastectomy due to breast cancer almost 50 years ago. Patient is currently being diuresed with Lasix. We will place MICHEL hose modified to fit the extremity. (6) Elevated troponin Conclusion/Plan: Please secondary to CHF exacerbation and tachycardia. And was 12.1. We will trend troponin times tomorrow. 2D echocardiogram pending. - Lab Results Fish Bones: 11/29/20 14:19 11/29/20 14:19 Core Measures - Anticipated LOS I expect patient to be DC'd or transferred within 96 hours.: Yes - DVT/VTE - Prophylaxis VTE/DVT Device ordered at admit?: Yes VTE/DVT Prophylaxis med ordered at admit?: No
--- OUTSIDE RECORDS SUMMARY | 2020-11-29 16:17 | EXTERNAL MEDICAL SUMMARY RPT | Continuity of Care Document ---
:1935 Demographics Phone Unavailable Preferred Language Slovak Marital Status Unknown Taoism Affiliation Unknown Race Unknown Ethnic Group Unknown Author Organization [facility] Address [address] [place] [address] Phone Problems date description facility [id number] Essential (primary) hypertension [employer] Social History date description facility [id number]
[2020-11-29] MEDS: SODIUM CHLORIDE FLUSH 0.9% 10 ML SYRINGE IVP SCH ×2 (19:04→23:45)
[2020-11-29] MEDS: METOPROLOL TARTRATE 50 MG TABLET PO SCH (20:10)
[2020-11-29] MEDS: WARFARIN 1 MG TABLET PO SCH (20:10)
[2020-11-29] MEDS: ATORVASTATIN 10 MG TABLET PO SCH (20:11)
[2020-11-29] MEDS ORDERED: CEFADROXIL 500 MG CAPSULE PO SCH (21:00)
[2020-11-30 02:21] LABS: BASOPHILS # (AUTO) 0.1 10^3/uL (0.0-0.1); BASOPHILS % (AUTO) 0.7 %; EOSINOPHILS # (AUTO) 0.1 10^3/uL (0.0-0.7); EOSINOPHILS % (AUTO) 1.9 %; HCT - HEMATOCRIT 35.4 % (37.0-47.0); HGB - HEMOGLOBIN 11.2 g/dL (12.0-16.0); LYMPHOCYTES # (AUTO) 1.1 10^3/uL (1.5-3.5); LYMPHOCYTES % (AUTO) 14.5 %; MEAN CORPUSCULAR HEMOGLOBIN 28.9 pg (27.0-31.0); MEAN CORPUSCULAR HGB CONC 31.6 g/dL (32.0-36.0); MEAN CORPUSCULAR VOLUME 91.2 fL (81.0-99.0); MEAN PLATELET VOLUME 9.4 fL (7.9-10.8); MONOCYTES # (AUTO) 0.8 10^3/uL (0.0-1.0); MONOCYTES % (AUTO) 10.6 %; NEUTROPHILS # (AUTO) 5.3 10^3/uL (1.5-6.6); PLT - PLATELET COUNT 148 10^3/uL (130-450); RED BLOOD COUNT 3.88 10^6/uL (4.20-5.40); RED CELL DISTRIBUTION WIDTH 19.7 % (12.0-15.0); WHITE BLOOD COUNT 7.3 x10^3/uL (4.8-10.8)
[2020-11-30 02:28] LABS: PT - PROTHROMBIN TIME 40.4 secs (9.9-12.6)
[2020-11-30 02:32] LABS: CALCIUM 9.1 mg/dL (8.5-10.3)
[2020-11-30] MEDS ORDERED: FUROSEMIDE 40 MG/4 ML VIAL IVP SCH (06:00)
[2020-11-30] MEDS: SODIUM CHLORIDE FLUSH 0.9% 10 ML SYRINGE IVP SCH ×2 (06:06→20:23)
[2020-11-30] MEDS ORDERED: POTASSIUM CHLORIDE 10 MEQ CAPSULE PO SCH (08:00)
[2020-11-30] MEDS: METOPROLOL TARTRATE 50 MG TABLET PO SCH ×2 (08:17→20:22)
[2020-11-30] MEDS: SPIRONOLACTONE 25 MG TABLET PO SCH (08:19)
[2020-11-30] MEDS: amLODIPine 5 MG TABLET PO SCH (08:19)
[2020-11-30] MEDS ORDERED: METOPROLOL 5 MG/5 ML VIAL IVP STA (08:58)
--- NOTE | 2020-11-30 09:18 | PROVIDER PROGRESS NOTE ---
Subjective - Prog Note Date Prog Note Date: 11/30/20 - Subjective Subjective: She still feels short of breath although this is improved. She is still quite dyspneic with minimal exertion. Denies any chest pain or palpitations. She feels that her edema in her legs has improved. The chronic lymphedema in her left upper extremity is worse than normal as she has not had her compression stocking available. Current Medications - Current Medications Current Medications: Active Medications Acetaminophen (Acetaminophen 325 Mg Tablet) 650 mg PO Q4HR PRN PRN Reason: Pain 1 to 4 Amlodipine Besylate (Amlodipine 5 Mg Tablet) 5 mg PO DAILY [facility] Last Admin: 11/30/20 08:19 Dose: 5 mg Documented by: Atorvastatin Calcium (Atorvastatin 10 Mg Tablet) 10 mg PO QPM [facility] Last Admin: 11/29/20 20:11 Dose: 10 mg Documented by: Furosemide (Furosemide 40 Mg/4 Ml Vial) 40 mg IVP BIDDIURETIC [facility] Last Admin: 11/30/20 06:06 Dose: 40 mg Documented by: Metoprolol Tartrate (Metoprolol Tartrate 50 Mg Tablet) 50 mg PO BID [facility] Last Admin: 11/30/20 08:17 Dose: 50 mg Documented by: Sodium Chloride (Sodium Chloride Flush 0.9% 10 Ml Syringe) 10 ml IVP PRN PRN PRN Reason: NEEDED PER PROVIDER ORDERS Sodium Chloride (Sodium Chloride Flush 0.9% 10 Ml Syringe) 10 ml IVP 0100,0900,1700 [facility] Last Admin: 11/30/20 06:06 Dose: 10 ml Documented by: Spironolactone (Spironolactone 25 Mg Tablet) 25 mg PO DAILY [facility] Last Admin: 11/30/20 08:19 Dose: 25 mg Documented by: Warfarin Sodium (Warfarin 1 Mg Tablet) 2 mg PO QDWARFARIN [facility] Last Admin: 11/29/20 20:10 Dose: 2 mg Documented by: Amlodipine Besylate mg PO DAILY 09/10/13 Warfarin [Coumadin] 5 mg PO DAILY@1400 09/10/13 Metoprolol Tartrate mg PO BID 08/22/14 Atorvastatin [Lipitor] mg PO QPM 05/16/16 Cholecalciferol (Vitamin D3) [Vitamin D3] units PO DAILY 05/16/16 Potassium Chloride meq PO DAILY 05/16/16 Cefadroxil [Duricef] 1,000 mg PO BID 07/22/20 Furosemide [Lasix] 40 mg PO DAILY 07/22/20 Magnesium 07/22/20 Spironolactone [Aldactone] 07/22/20 Objective - Vital Signs/Intake & Output Reviewed Vital Signs: Yes Vital Signs: Vital Signs x48h Temp Pulse Resp BP BP Pulse Ox 11/30/20 09:11 118/61 11/30/20 08:17 112/68 11/30/20 07:19 36.8 C 120 H 16 120/80 96 11/30/20 05:00 36.5 C 103 H 16 105/59 L 93 Intake & Output: Intake & Output 11/27/20 11/28/20 11/29/20 11/30/20 23:59 23:59 23:59 23:59 Intake Total 480 100 Output Total 900 300 Balance -420 -200 - Objective General Appearance: positive: No acute distress, Alert Eyes Bilateral: positive: Normal inspection, Conjunctivae nml ENT: positive: ENT inspection nml Neck: positive: Nml inspection Respiratory: positive: Other (She is not in distress but does appear tachypneic. Faint crackles bilaterally. Breath sounds diminished throughout.). negative: Wheezes Cardiovascular: positive: Tachycardia, Other (Mechanical click noted.). negative: Irregularly irregular Abdomen: positive: Non-tender, No distention. negative: Tenderness Extremities: positive: Pedal edema (Trace edema in the bilateral lower extremities.), Other (+2 pitting edema in the left upper extremity.) Neurologic/Psychiatric: negative: Disoriented to person, Disoriented to place - Lab Results Fish Bones: 11/30/20 02:14 11/30/20 02:14 Other Labs: Lab Results x24hrs 11/30/20 11/30/20 11/30/20 Range/Units 02:14 02:14 02:14 WBC (4.8-10.8) x10^3/uL RBC (4.20-5.40) 10^6/uL Hgb (12.0-16.0) g/dL Hct (37.0-47.0) % MCV (81.0-99.0) fL MCH (27.0-31.0) pg MCHC (32.0-36.0) g/dL RDW (12.0-15.0) % Plt Count (130-450) 10^3/uL MPV (7.9-10.8) fL Neut # (Auto) (1.5-6.6) 10^3/uL Lymph # (Auto) (1.5-3.5) 10^3/uL Panola # (Auto) (0.0-1.0) 10^3/uL Eos # (Auto) (0.0-0.7) 10^3/uL Baso # (Auto) (0.0-0.1) 10^3/uL Absolute Nucleated RBC x10^3/uL Nucleated RBC % /100WBC PT 40.4 H (9.9-12.6) secs INR 4.0 H (0.8-1.2) Sodium (135-145) mmol/L Potassium (3.5-5.0) mmol/L Chloride (101-111) mmol/L Carbon Dioxide (21-32) mmol/L Anion Gap (6-13) BUN (6-20) mg/dL Creatinine (0.4-1.0) mg/dL Estimated GFR (MDRD) (>89) Glucose (70-100) mg/dL Calcium (8.5-10.3) mg/dL Magnesium (1.7-2.8) mg/dL Total Bilirubin (0.2-1.0) mg/dL AST (10-42) IU/L ALT (10-60) IU/L Alkaline Phosphatase (42-121) IU/L Troponin I High Sens 24.1 H* (2.3-14.8) ng/L B-Natriuretic Peptide 798 H (5-100) pg/mL Total Protein (6.7-8.2) g/dL Albumin (3.2-5.5) g/dL Globulin (2.1-4.2) g/dL Albumin/Globulin Ratio (1.0-2.2) Lipase (22-51) U/L Nasal Adenovirus (PCR) Nasal B. parapertussis DNA (PCR) Nasal Coronavir 229E PCR Nasal Coronavir HKU1 PCR Nasal Coronavir NL63 PCR Nasal Coronavir OC43 PCR Nasal Enterovir/Rhinovir PCR Nasal Influenza B PCR Nasal Influenza A PCR Nasal Parainfluen 1 PCR Nasal Parainfluen 2 PCR Nasal Parainfluen 3 PCR Nasal Parainfluen 4 PCR Nasal RSV (PCR) Nasal B.pertussis DNA PCR Nasal C.pneumoniae (PCR) Dimitris Human Metapneumo PCR Nasal M.pneumoniae (PCR) Nasal SARS-CoV-2 (PCR) 11/30/20 11/30/20 11/29/20 Range/Units 02:14 02:14 20:08 WBC 7.3 (4.8-10.8) x10^3/uL RBC 3.88 L (4.20-5.40) 10^6/uL Hgb 11.2 L (12.0-16.0) g/dL Hct 35.4 L (37.0-47.0) % MCV 91.2 (81.0-99.0) fL MCH 28.9 (27.0-31.0) pg MCHC 31.6 L (32.0-36.0) g/dL RDW 19.7 H (12.0-15.0) % Plt Count 148 (130-450) 10^3/uL MPV 9.4 (7.9-10.8) fL Neut # (Auto) 5.3 (1.5-6.6) 10^3/uL Lymph # (Auto) 1.1 L (1.5-3.5) 10^3/uL Panola # (Auto) 0.8 (0.0-1.0) 10^3/uL Eos # (Auto) 0.1 (0.0-0.7) 10^3/uL Baso # (Auto) 0.1 (0.0-0.1) 10^3/uL Absolute Nucleated RBC 0.00 x10^3/uL Nucleated RBC % 0.0 /100WBC PT (9.9-12.6) secs INR (0.8-1.2) Sodium 138 (135-145) mmol/L Potassium 4.0 (3.5-5.0) mmol/L Chloride 104 (101-111) mmol/L Carbon Dioxide 24 (21-32) mmol/L Anion Gap 10.0 (6-13) BUN 26 H (6-20) mg/dL Creatinine 1.0 (0.4-1.0) mg/dL Estimated GFR (MDRD) 53 L (>89) Glucose 93 (70-100) mg/dL Calcium 9.1 (8.5-10.3) mg/dL Magnesium (1.7-2.8) mg/dL Total Bilirubin (0.2-1.0) mg/dL AST (10-42) IU/L ALT (10-60) IU/L Alkaline Phosphatase (42-121) IU/L Troponin I High Sens 16.5 H* (2.3-14.8) ng/L B-Natriuretic Peptide (5-100) pg/mL Total Protein (6.7-8.2) g/dL Albumin (3.2-5.5) g/dL Globulin (2.1-4.2) g/dL Albumin/Globulin Ratio (1.0-2.2) Lipase (22-51) U/L Nasal Adenovirus (PCR) Nasal B. parapertussis DNA (PCR) Nasal Coronavir 229E PCR Nasal Coronavir HKU1 PCR Nasal Coronavir NL63 PCR Nasal Coronavir OC43 PCR Nasal Enterovir/Rhinovir PCR Nasal Influenza B PCR Nasal Influenza A PCR Nasal Parainfluen 1 PCR Nasal Parainfluen 2 PCR Nasal Parainfluen 3 PCR Nasal Parainfluen 4 PCR Nasal RSV (PCR) Nasal B.pertussis DNA PCR Nasal C.pneumoniae (PCR) Dimitris Human Metapneumo PCR Nasal M.pneumoniae (PCR) Nasal SARS-CoV-2 (PCR) 11/29/20 11/29/20 11/29/20 Range/Units 14:19 14:19 14:19 WBC (4.8-10.8) x10^3/uL RBC (4.20-5.40) 10^6/uL Hgb (12.0-16.0) g/dL Hct (37.0-47.0) % MCV (81.0-99.0) fL MCH (27.0-31.0) pg MCHC (32.0-36.0) g/dL RDW (12.0-15.0) % Plt Count (130-450) 10^3/uL MPV (7.9-10.8) fL Neut # (Auto) (1.5-6.6) 10^3/uL Lymph # (Auto) (1.5-3.5) 10^3/uL [place] # (Auto) (0.0-1.0) 10^3/uL Eos # (Auto) (0.0-0.7) 10^3/uL Baso # (Auto) (0.0-0.1) 10^3/uL Absolute Nucleated RBC x10^3/uL Nucleated RBC % /100WBC PT (9.9-12.6) secs INR (0.8-1.2) Sodium 137 (135-145) mmol/L Potassium 5.3 H (3.5-5.0) mmol/L Chloride 105 (101-111) mmol/L Carbon Dioxide 21 (21-32) mmol/L Anion Gap 11.0 (6-13) BUN 24 H (6-20) mg/dL Creatinine 1.1 H (0.4-1.0) mg/dL Estimated GFR (MDRD) 47 L (>89) Glucose 135 H (70-100) mg/dL Calcium 10.2 (8.5-10.3) mg/dL Magnesium 2.2 (1.7-2.8) mg/dL Total Bilirubin 1.5 H (0.2-1.0) mg/dL AST 68 H (10-42) IU/L ALT 32 (10-60) IU/L Alkaline Phosphatase 230 H (42-121) IU/L Troponin I High Sens 22.4 H* (2.3-14.8) ng/L B-Natriuretic Peptide 792 H (5-100) pg/mL Total Protein 7.9 (6.7-8.2) g/dL Albumin 3.6 (3.2-5.5) g/dL Globulin 4.3 H (2.1-4.2) g/dL Albumin/Globulin Ratio 0.8 L (1.0-2.2) Lipase 30 (22-51) U/L Nasal Adenovirus (PCR) Nasal B. parapertussis DNA (PCR) Nasal Coronavir 229E PCR Nasal Coronavir HKU1 PCR Nasal Coronavir NL63 PCR Nasal Coronavir OC43 PCR Nasal Enterovir/Rhinovir PCR Nasal Influenza B PCR Nasal Influenza A PCR Nasal Parainfluen 1 PCR Nasal Parainfluen 2 PCR Nasal Parainfluen 3 PCR Nasal Parainfluen 4 PCR Nasal RSV (PCR) Nasal B.pertussis DNA PCR Nasal C.pneumoniae (PCR) Dimitris Human Metapneumo PCR Nasal M.pneumoniae (PCR) Nasal SARS-CoV-2 (PCR) 11/29/20 11/29/20 11/29/20 Range/Units 14:19 14:19 14:16 WBC 11.0 H (4.8-10.8) x10^3/uL RBC 4.29 (4.20-5.40) 10^6/uL Hgb 12.6 (12.0-16.0) g/dL Hct 39.0 (37.0-47.0) % MCV 90.9 (81.0-99.0) fL MCH 29.4 (27.0-31.0) pg MCHC 32.3 (32.0-36.0) g/dL RDW 19.8 H (12.0-15.0) % Plt Count 197 (130-450) 10^3/uL MPV 10.1 (7.9-10.8) fL Neut # (Auto) 8.6 H (1.5-6.6) 10^3/uL Lymph # (Auto) 1.2 L (1.5-3.5) 10^3/uL [place] # (Auto) 1.1 H (0.0-1.0) 10^3/uL Eos # (Auto) 0.1 (0.0-0.7) 10^3/uL Baso # (Auto) 0.1 (0.0-0.1) 10^3/uL Absolute Nucleated RBC 0.00 x10^3/uL Nucleated RBC % 0.0 /100WBC PT 33.9 H (9.9-12.6) secs INR 3.3 H (0.8-1.2) Sodium (135-145) mmol/L Potassium (3.5-5.0) mmol/L Chloride (101-111) mmol/L Carbon Dioxide (21-32) mmol/L Anion Gap (6-13) BUN (6-20) mg/dL Creatinine (0.4-1.0) mg/dL Estimated GFR (MDRD) (>89) Glucose (70-100) mg/dL Calcium (8.5-10.3) mg/dL Magnesium (1.7-2.8) mg/dL Total Bilirubin (0.2-1.0) mg/dL AST (10-42) IU/L ALT (10-60) IU/L Alkaline Phosphatase (42-121) IU/L Troponin I High Sens (2.3-14.8) ng/L B-Natriuretic Peptide (5-100) pg/mL Total Protein (6.7-8.2) g/dL Albumin (3.2-5.5) g/dL Globulin (2.1-4.2) g/dL Albumin/Globulin Ratio (1.0-2.2) Lipase (22-51) U/L Nasal Adenovirus (PCR) NOT DETECTED Nasal B. parapertussis DNA (PCR) NOT DETECTED Nasal Coronavir 229E PCR NOT DETECTED Nasal Coronavir HKU1 PCR NOT DETECTED Nasal Coronavir NL63 PCR NOT DETECTED Nasal Coronavir OC43 PCR NOT DETECTED Nasal Enterovir/Rhinovir PCR NOT DETECTED Nasal Influenza B PCR NOT DETECTED Nasal Influenza A PCR NOT DETECTED Nasal Parainfluen 1 PCR NOT DETECTED Nasal Parainfluen 2 PCR NOT DETECTED Nasal Parainfluen 3 PCR NOT DETECTED Nasal Parainfluen 4 PCR NOT DETECTED Nasal RSV (PCR) NOT DETECTED Nasal B.pertussis DNA PCR NOT DETECTED Nasal C.pneumoniae (PCR) NOT DETECTED Dimitris Human Metapneumo PCR NOT DETECTED Nasal M.pneumoniae (PCR) NOT DETECTED Nasal SARS-CoV-2 (PCR) NOT DETECTED ABX Reporting Has patient been on IV antibiotics over the past 48 hours?: No Assessment/Plan - Problem List (1) Suspected CHF (congestive heart failure) Impression: Her chest x-ray on admission was consistent with pulmonary edema and her BNP was elevated in the 700s. She also had lower extremity edema which is improved. An echocardiogram is pending but suspect her dyspnea is related to heart failure. She is fortunately not hypoxic. She does appear improved today but still dyspneic with exertion. We will keep her on Lasix 40 mg IV daily. We will follow up echocardiogram today. We will control her heart rate as ment ioned below given her atrial flutter with rapid ventricular response. Based off of her echocardiogram findings, she may need appropriate heart failure therapy. (2) Atrial flutter with rapid ventricular response Impression: She is tachycardic this morning with rates in the 120s. This has been persistent throughout the night. Telemetry is consistent with atrial flutter. I ordered a one-time dose of Lopressor 5 mg IV this morning. We will increase her Lopressor dose to 100 mg twice daily which she has been taking at home. We will hold her Coumadin today given her INR is supratherapeutic. If her heart rate remains stable on this increased dose of Lopressor then she can likely be discharged home tomorrow. (3) Elevated troponin Impression: This is likely demand ischemia given the heart failure and atrial flutter with rapid ventricular response. Her troponins have been flat in the 20s. Her EKG did not suggest ischemia. Echocardiogram is pending. (4) Hx of aortic valve replacement, mechanical Impression: Her INR is supratherapeutic today at 4.0. Echocardiogram is pending today. We will hold her Coumadin dose today and resume tomorrow. Continue with daily INR while hospitalized. (5) Lymphedema Impression: This is chronic and secondary to the left mastectomy for breast cancer. Her lymphedema has progressed as she does not have her compression stocking available. We will place MICHEL hose and continue with elevation. Low suspicion for DVT given the chronic nature of the edema and the fact that she is anticoag ulated.
--- NOTE | 2020-11-30 10:33 | PHARMACY PROGRESS NOTE ---
- Best Possible Medication History Admit Date and Time: 11/29/20 1551 Processed by: Pharmacy Medication History completed: Yes Patient Interview: Completed Secondary Source(s): Physician records, Pharmacy records, Insurance records (PATIENT INTERVIEWED BY PHARMACY. PATIENT ABLE TO CONFIRM HOME MEDICATIONS ) As the person ultimately responsible for medication therapy, providers are able to order a medication from an existing home medication list in [facility] via the "Reconcile Routine" prior to Confirmation of that medication by client support analyst. Such practice is discouraged except when the physician, in their clinical judgment, deems that a medical need exists for a medication without regard to previous use.
[2020-11-30] MEDS: WARFARIN 1 MG TABLET PO SCH (13:10)
[2020-11-30] MEDS: ATORVASTATIN 10 MG TABLET PO SCH (20:22)
[2020-12-01] MEDS: SODIUM CHLORIDE FLUSH 0.9% 10 ML SYRINGE IVP SCH ×2 (00:06→08:41)
[2020-12-01 04:14] LABS: BASOPHILS % (AUTO) 0.5 %; EOSINOPHILS # (AUTO) 0.2 10^3/uL (0.0-0.7); EOSINOPHILS % (AUTO) 2.8 %; HCT - HEMATOCRIT 36.3 % (37.0-47.0); HGB - HEMOGLOBIN 11.4 g/dL (12.0-16.0); LYMPHOCYTES # (AUTO) 1.2 10^3/uL (1.5-3.5); LYMPHOCYTES % (AUTO) 15.1 %; MEAN CORPUSCULAR HEMOGLOBIN 28.9 pg (27.0-31.0); MEAN CORPUSCULAR HGB CONC 31.4 g/dL (32.0-36.0); MEAN CORPUSCULAR VOLUME 91.9 fL (81.0-99.0); MEAN PLATELET VOLUME 9.2 fL (7.9-10.8); MONOCYTES % (AUTO) 12.5 %; NEUTROPHILS # (AUTO) 5.4 10^3/uL (1.5-6.6); NEUTROPHILS % (AUTO) 68.8 %; PLT - PLATELET COUNT 154 10^3/uL (130-450); RED BLOOD COUNT 3.95 10^6/uL (4.20-5.40); RED CELL DISTRIBUTION WIDTH 19.2 % (12.0-15.0); WHITE BLOOD COUNT 7.8 x10^3/uL (4.8-10.8)
[2020-12-01 04:20] LABS: INR 3.3 (0.8-1.2); PT - PROTHROMBIN TIME 34.1 secs (9.9-12.6)
[2020-12-01 04:22] LABS: CALCIUM 9.3 mg/dL (8.5-10.3); CREATININE 0.9 mg/dL (0.4-1.0); POTASSIUM 3.8 mmol/L (3.5-5.0)
[2020-12-01] MEDS: METOPROLOL TARTRATE 50 MG TABLET PO SCH (08:40)
[2020-12-01] MEDS: SPIRONOLACTONE 25 MG TABLET PO SCH (08:40)
[2020-12-01] MEDS: amLODIPine 5 MG TABLET PO SCH (08:40)
[2020-12-01] MEDS ORDERED: polyethylene glycoL 3350 17 GM PACKET PO SCH (09:00)
[2020-12-01] MEDS ORDERED: FUROSEMIDE 40 MG TABLET PO SCH (09:00)
[2020-12-01] MEDS ORDERED: FUROSEMIDE 40 MG/4 ML VIAL IVP SCH (09:00)
--- NOTE | 2020-12-01 10:29 | Discharge Plan ---
Discharge Plan Problem Reviewed?: Yes Disposition: Home, Self Care Condition: Stable Prescriptions: Furosemide [Lasix] 40 mg PO DAILY #30 tablet Diet: Low Sodium Activity Restrictions: Activity as Tolerated Instruction Topics: Heart Failure Dc Health Concerns: You were seen in the hospital because of concern for possible heart failure. We did an ultrasound of your heart which showed that your heart function was normal. Your heart was a little stiff which is not uncommon at your age and this can cause heart failure. The treatment for this is to take Lasix to remove fluid. We gave you Lasix through an IV and you had improvement in your symptoms. Plan of Treatment: Please begin to take Lasix 40 mg daily once a day. You can continue amlodipine for blood pressure but please take a lower dose of 5 mg. You were previously taking 10 mg once a day. Please continue to take metoprolol 100 mg twice a day to control your heart rate. It is important to limit your sodium intake to 2 to 3 g. It is recommended that you check your weight and to call your primary care provider or service center representative if you gain more than 2 to 3 pounds or develop worsening swelling in your legs. Care Goals: The goal is to treat the underlying diastolic heart failure and to prevent you from developing shortness of breath. Assessment: Patient expressed understanding of the treatment plan. Additional Instructions or Follow Up instructions: Please follow-up with your primary care provider next week to ensure that you are doing well from a breathing standpoint and that your heart rate is controlled. No Smoking: If you smoke, Please STOP! Call for help. Follow-up with: Jasmin Garland MD [Primary Care Provider] -
--- NOTE | 2020-12-01 10:32 | DISCHARGE SUMMARY ---
"Discharge Summary Admit Date: 11/29/20 Discharge Date: 12/01/20 Discharging Provider: Jose Alcantar Primary Care Provider: Jasmin Garland Code Status: Do Not Attempt Resuscitation Condition at Discharge: Stable Discharge Disposition: [facility] - DIAGNOSES Admission Diagnoses: CHF exacerbation Atrial fibrillation History of aortic valve replacement, mechanical Hypertension Lymphedema Elevated troponin Discharge Diagnoses with Status of Each Condition: Acute on chronic heart failure with preserved ejection fraction - resolved. Atrial flutter with rapid ventricular response - resolved. Elevated troponin, likely demand ischemia - stable History of aortic valve replacement, mechanical - stable. Lymphedema - stable. Hypertension - stable. - HPI History of Present Illness: H&P per Dr. Andrea on 11/29/20: Patient is an 85-year-old female with medical history significant for CHF, hyperlipidemia, atrial fibrillation, hypertension, history of breast cancer status post radical left mastectomy, chronic left upper extremity lymphedema secondary to mastectomy, recent pacemaker placement, history of mechanical aortic valve who presented to the ED with complaint of dyspnea which started yesterday. She gets physical therapy at home and when the therapist came in today he found her gasping for breath. Her symptoms seem to worsen with any exertion. Her primary care physician Dr. Garland was contacted and advised the patient present to the ED. A couple weeks ago she had presented to [facility] ED after a syncopal episode at home from which she fractured her left clavicle. She was transferred to [facility] where she had a pacemaker placed on the right side. The pacemaker could not be done on the left side due to her left clavicle fracture and the radical mastectomy on the left side with associated chronic lymphedema. Work-up in the ED included a BNP which showed a troponin of 792. She also had a troponin of 22.4. She has greater than 3+ edema in her left upper extremity and +1 lower extremity edema. There is appreciable movement on the right side but de creased breath sounds on the left on auscultation. As a result of her clinical findings she is being admitted for further treatment. - CONSULTS | PROCEDURES Procedures: Echocardiogram November 30 showed an ejection fraction of 55 to 60%. Grade 1 diastolic dysfunction. Moderate right ventricular enlargement. The right ventricular systolic function is moderately impaired. Pacemaker leads seen in the right atrium and right ventricle. Severe tricuspid dilatation. RVSP at rest is 50 mmHg. - HOSPITAL COURSE Hospital Course: The patient was admitted to the floor for suspected heart failure. Her BNP was in the 700s and her initial troponin was in the low 20s. She had +1 edema in her bilateral lower extremities. Her chest x-ray was also suggestive of pulmonary vascular congestion. She was treated with Lasix 40 mg IV twice daily. She was never hypoxic but initially did have dyspnea with exertion. This resolved with diuresis. An echocardiogram was obtained which showed a preserved ejection fraction and grade 1 diastolic dysfunction. The aortic mechanical valve was well functioning. There was evidence of severe tricuspid regurgitation with RVSP of 50 mmHg. Lower extremity edema did resolve with diuresis and she was transitioned to oral Lasix 40 mg. Although this was on her med rec, she had not been taking this prior to admission. We did continue her home metoprolol 100 mg twice daily and her heart rate has been stable in the 90s. She was initially tachycardic in the 120s but this resolved after we resumed her appropriate dose of metoprolol. She was continued on Coumadin throughout this hospitalization. I have asked her to decrease her amlodipine to 5 mg from 10 mg as her blood pressure has been well controlled on this decreased dose. - ALLERGIES Allergies/Adverse Reactions: Allergies Allergy/AdvReac Type Severity Reaction Status Date / Time codeine AdvReac Unknown Nausea Verified 11/29/20 13:45 - MEDICATIONS Home Medications: Ambulatory Orders Medication Instructions Recorded Confirmed Atorvastatin [Lipitor] 10 mg PO DAILY 05/16/16 11/30/20 Cholecalciferol (Vitamin D3) 1 cap PO .MWF 05/16/16 11/30/20 [Vitamin D3] Spironolactone [Aldactone] 25 mg PO DAILY 07/22/20 11/30/20 Metoprolol Succinate [Toprol Xl] 100 mg PO BID 11/30/20 11/30/20 Potassium Chloride Oral Soln 20 meq PO DAILY 11/30/20 11/30/20 [Potassium Chloride] Warfarin [Coumadin] 2.5 mg PO DAILY 11/30/20 11/30/20 Furosemide [Lasix] 40 mg PO DAILY #30 tablet 12/01/20 amLODIPine [Norvasc] 5 mg PO DAILY tablet 12/01/20 - PHYSICAL EXAM AT DISCHARGE General Appearance: positive: No acute distress, Alert Eyes Bilateral: positive: Normal inspection, Conjunctivae nml ENT: positive: ENT inspection nml Neck: positive: Nml inspection Respiratory: positive: No respiratory distress, Other (Diminished in bases.). negative: Wheezes, Rales Cardiovascular: positive: Irregularly irregular, Other (Mechanical click noted.). negative: Tachycardia, Bradycardia Abdomen: positive: Non-tender, No distention. negative: Tenderness, Guarding, Rebound Skin: positive: Warm, Dry Extremities: positive: No pedal edema, Other (She has +2 pitting edema in her left upper extremity which is improved.) Neurologic/Psychiatric: negative: Disoriented to person, Disoriented to place Physical Exam Other/Comments: Vital Signs - 24 hr 11/30/20 11/30/20 11/30/20 16:16 20:14 20:22 Temperature 36.8 C 37.3 C Heart Rate [ Brachial] Heart Rate [ 83 85 Radial] Respiratory 18 18 Rate Blood Pressure 119/60 Blood Pressure 116/75 119/60 [Right Brachial artery] O2 Saturation 95 95 12/01/20 12/01/20 12/01/20 00:02 05:52 08:35 Temperature 36.8 C 36.6 C Heart Rate [ 93 97 125 H Brachial] Heart Rate [ Radial] Respiratory 16 16 20 Rate Blood Pressure Blood Pressure 116/54 L 110/53 L 118/63 [Right Brachial artery] O2 Saturation 94 94 96 12/01/20 12/01/20 11:16 13:51 Temperature 36.6 C Heart Rate [ 95 124 H Brachial] Heart Rate [ Radial] Respiratory 18 Rate Blood Pressure Blood Pressure 117/73 107/61 [Right Brachial artery] O2 Saturation 96 Oxygen O2 Source Room air - LABS Result Diagrams: 12/01/20 04:00 12/01/20 04:00 - DIAGNOSTIC IMAGING Diagnostic Imaging Results: Final report reviewed - FOLLOW UP Follow Up: I have asked her to follow-up with her primary care provider next week to ensure that she is doing well from a respiratory standpoint. - TIME SPENT Time Spent in Discharge (Minutes): 34"
[2020-12-01 13:51] VITALS: BP 107/61
== END 2020-12-01 14:00 | disposition home health service (06) | DRG 292 ==
LOC: ED 13:42 → MS3 15:51
PROVIDERS: ADMIT Internal Medicine; ATTEND Internal Medicine
DX: I11.0 Hypertensive heart disease with heart failure (principal); I50.9 Heart failure, unspecified; I48.92 Unspecified atrial flutter; I24.8 Other forms of acute ischemic heart disease; I50.33 Acute on chronic diastolic (congestive) heart failure; I48.91 Unspecified atrial fibrillation; I07.1 Rheumatic tricuspid insufficiency; R79.1 Abnormal coagulation profile; Z20.822 Contact with and (suspected) exposure to COVID-19; E78.5 Hyperlipidemia, unspecified; G62.9 Polyneuropathy, unspecified; I97.2 Postmastectomy lymphedema syndrome; M81.0 Age-related osteoporosis without current pathological fracture; Z66 Do not resuscitate; S22.42XD Multiple fractures of ribs, left side, subsequent encounter for fracture with routine healing; S42.032D Displaced fracture of lateral end of left clavicle, subsequent encounter for fracture with routine healing; Z90.12 Acquired absence of left breast and nipple; Z79.01 Long term (current) use of anticoagulants; Z79.899 Other long term (current) drug therapy; Z95.1 Presence of aortocoronary bypass graft; Z95.2 Presence of prosthetic heart valve; Z95.0 Presence of cardiac pacemaker; Z87.01 Personal history of pneumonia (recurrent); Z85.3 Personal history of malignant neoplasm of breast
CPT/HCPCS: 36415; 71045; 80048; 80053; 83690; 83735; 83880; 84484; 85025; 85610; 87631; 93005; 93306; 96374; 99285; A9270; J1940; 0202U

== ENCOUNTER 2020-12-17 13:35 | Outpatient (CLI) | payer MEDICARE | END 2020-12-17 13:36 | disposition critical access hospital (66) | LOC: EMS 13:35 | DX: R04.0 Epistaxis (principal); R60.0 Localized edema; R06.09 Other forms of dyspnea | CPT/HCPCS: A0425; A0429 ==

== ENCOUNTER 2020-12-17 13:49 | Emergency (ER) | payer MEDICARE ==
--- NOTE | 2020-12-17 14:02 | ED Physician Documentation ---
PD HPI DYSPNEA - Stated complaint Stated Complaint: SOA - History obtained from History obtained from: Patient, EMS - Additional information Additional information: This is an 85-year-old woman with history of metallic aortic valve replacement and clips on the aortic and tricuspid valve, A. fib, hypertension, CHF, pacemaker who saw her physician a few days ago and was noted to have an INR that was quite elevated. She stopped her troponin but still has mild nosebleeds, but mostly presents today for shortness of breath lasting the last 3 days associated with weight gain and pedal edema. Review of Systems Ten Systems: 10 systems reviewed and negative Constitutional: reports: Fatigue. denies: Fever, Chills Nose: denies: Rhinorrhea / runny nose, Congestion Cardiac: reports: Pedal edema. denies: Chest pain / pressure, Palpitations Respiratory: reports: Dyspnea. 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: Breast cancer : None HEENT: None Psych: None Musculoskeletal: Osteoporosis Derm: None - Past Surgical History Past Surgical History: Yes General: Appendectomy /CITY CLERK: Mastectomy (Left, radical) Cardiovascular: Valve replacement (mechanical aortic valve), Pacemaker - Present Medications Home Medications: Ambulatory Orders Medication Instructions Recorded Confirmed Atorvastatin [Lipitor] 10 mg PO DAILY 05/16/16 12/17/20 Cholecalciferol (Vitamin D3) 1 cap PO .MW 05/16/16 12/17/20 [Vitamin D3] Spironolactone [Aldactone] 25 mg PO DAILY 07/22/20 12/17/20 Metoprolol Succinate [Toprol Xl] 100 mg PO BID 11/30/20 12/17/20 Potassium Chloride Oral Soln 20 meq PO DAILY 11/30/20 12/17/20 [Potassium Chloride] Warfarin [Coumadin] 4 mg PO DAILY 11/30/20 12/17/20 Furosemide [Lasix] 40 mg PO DAILY #30 tablet 12/01/20 12/17/20 Cefadroxil [Duricef] 500 mg PO BID 12/17/20 12/17/20 Lymphedema Compression Sleeve 1 unit TD ONCE 1 Days 12/17/20 amLODIPine [Norvasc] 5 mg PO BID 12/17/20 12/17/20 - Allergies Allergies/Adverse Reactions: Allergies Allergy/AdvReac Type Severity Reaction Status Date / Time codeine AdvReac Unknown Nausea Verified 12/17/20 14:03 - Social History Does the pt smoke?: No Smoking Status: Never smoker Does the pt drink ETOH?: Yes Does the pt have substance abuse?: No - Immunizations Immunizations are current?: Yes - POLST Patient has POLST: No POLST Status: DNR PD ED PE NORMAL - Vitals Vital signs reviewed: Yes - General General: Alert and oriented X 3, No acute distress - HEENT HEENT: PERRL, EOMI - Neck Neck: Supple, no meningeal sign, No bony TTP - Cardiac Cardiac: RRR, Other (Very loud S2) - Respiratory Respiratory: Other (Rales at both bases and diminished at the left base, mildly labored) - Abdomen Abdomen: Soft, Non tender - Back Back: No CVA TTP, No spinal TTP - Derm Derm: Normal color, Warm and dry - Extremities Extremities: Other (Significant edema of the left upper extremity, combination of prior mastectomy on that side as well as a fall 2 months ago with a broken clavicle and ribs on that side. 2+ bilateral pitting pedal edema, symmetric.) - Neuro Neuro: Alert and oriented X 3, Normal speech Results - Vitals Vitals: Vital Signs - 24 hr 12/17/20 13:55 Temperature 37.0 C Heart Rate 75 Respiratory 18 Rate Blood Pressure 123/62 O2 Saturation 100 Oxygen O2 Source Room air - EKG (time done) 1404 Rate: Rate (enter#) (70) Rhythm: Paced - Labs Labs: Laboratory Tests 12/17/20 12/17/20 12/17/20 14:57 14:57 14:57 WBC 8.2 RBC 4.50 Hgb 12.6 Hct 40.0 MCV 88.9 MCH 28.0 MCHC 31.5 L RDW 17.4 H Plt Count 168 MPV 9.2 Neut # (Auto) 6.2 Lymph # (Auto) 1.1 L Wirt # (Auto) 0.8 Eos # (Auto) 0.1 Baso # (Auto) 0.0 Absolute Nucleated RBC 0.00 Nucleated RBC % 0.0 PT INR Sodium 138 Potassium 4.7 Chloride 100 L Carbon Dioxide 27 Anion Gap 11.0 BUN 43 H Creatinine 1.7 H Estimated GFR (MDRD) 29 L Glucose 120 H Calcium 9.3 Total Bilirubin 1.8 H AST 51 H ALT 35 Alkaline Phosphatase 186 H Troponin I High Sens 17.4 H* B-Natriuretic Peptide Total Protein 7.3 Albumin 3.6 Globulin 3.7 Albumin/Globulin Ratio 1.0 Lipase 27 12/17/20 12/17/20 14:57 14:57 WBC RBC Hgb Hct MCV MCH MCHC RDW Plt Count MPV Neut # (Auto) Lymph # (Auto) Wirt # (Auto) Eos # (Auto) Baso # (Auto) Absolute Nucleated RBC Nucleated RBC % PT 75.0 H INR 7.7 H* Sodium Potassium Chloride Carbon Dioxide Anion Gap BUN Creatinine Estimated GFR (MDRD) Glucose Calcium Total Bilirubin AST ALT Alkaline Phosphatase Troponin I High Sens B-Natriuretic Peptide 754 H Total Protein Albumin Globulin Albumin/Globulin Ratio Lipase Procedures - General procedure General procedure: She is difficult for blood draw and I personally did a ultrasound-guided blood draw from the right deep brachial vein. PD MEDICAL DECISION MAKING - ED course ED course: 85-year-old who presents with CHF and fluid overload, although recalcitrance [place] INR which was treated with 2.5 mg of oral vitamin K. CHF seems mild to moderate with no hypoxemia or respiratory distress and she was given IV Lasix here and advised to double her Lasix dose for a few days. Departure - Departure Disposition: 01 Home, Self Care Clinical Impression: Lymphedema, Supratherapeutic INR Congestive heart failure Qualifiers: Heart failure type: unspecified Heart failure chronicity: acute on chronic Qualified Code(s): I50.9 - Heart failure, unspecified Condition: Stable Record reviewed to determine appropriate education?: Yes Instructions: ED CHF General Prescriptions: Lymphedema Compression Sleeve 1 unit TD ONCE 1 Days Comments: Continue to hold your warfarin over the weekend, recheck your INR on Sunday to see where you are then. Double your Lasix to twice a day for the next 3 days. Return if worsening.
--- OUTSIDE RECORDS SUMMARY | 2020-12-17 14:21 | EXTERNAL MEDICAL SUMMARY RPT | Continuity of Care Document ---
:1935 Demographics Phone Unavailable Preferred Language Irish Marital Status Unknown Rastafari Affiliation Unknown Race Unknown Ethnic Group Unknown Author Organization [facility] Address [address] [place] [address] Phone Problems date description facility [id number] Essential (primary) hypertension [facility] [employer] Social History date description facility [id number]
[2020-12-17] MEDS ORDERED: FUROSEMIDE 100 MG/10 ML VIAL IVP STA (14:58)
[2020-12-17 15:02] LABS: BASOPHILS % (AUTO) 0.5 %; EOSINOPHILS # (AUTO) 0.1 10^3/uL (0.0-0.7); EOSINOPHILS % (AUTO) 0.6 %; HGB - HEMOGLOBIN 12.6 g/dL (12.0-16.0); LYMPHOCYTES # (AUTO) 1.1 10^3/uL (1.5-3.5); LYMPHOCYTES % (AUTO) 12.9 %; MEAN CORPUSCULAR HGB CONC 31.5 g/dL (32.0-36.0); MEAN CORPUSCULAR VOLUME 88.9 fL (81.0-99.0); MEAN PLATELET VOLUME 9.2 fL (7.9-10.8); MONOCYTES # (AUTO) 0.8 10^3/uL (0.0-1.0); NEUTROPHILS # (AUTO) 6.2 10^3/uL (1.5-6.6); NEUTROPHILS % (AUTO) 75.8 %; PLT - PLATELET COUNT 168 10^3/uL (130-450); RED CELL DISTRIBUTION WIDTH 17.4 % (12.0-15.0); WHITE BLOOD COUNT 8.2 x10^3/uL (4.8-10.8)
[2020-12-17 15:15] LABS: INR 7.7 (0.8-1.2)
[2020-12-17] MEDS ORDERED: CHERRY SYRUP 10 ML UDC PO ONE (15:21)
[2020-12-17] MEDS ORDERED: PHYTONADIONE 10 MG/ML AMP PO ONE (15:21)
[2020-12-17 15:23] LABS: ALBUMIN 3.6 g/dL (3.2-5.5); BILIRUBIN,TOTAL 1.8 mg/dL (0.2-1.0); CALCIUM 9.3 mg/dL (8.5-10.3); CREATININE 1.7 mg/dL (0.4-1.0); POTASSIUM 4.7 mmol/L (3.5-5.0); TOTAL PROTEIN 7.3 g/dL (6.7-8.2)
--- NOTE | 2020-12-17 15:25 | XRAY Report ---
PROCEDURE: Chest 1 View X-Ray INDICATIONS: dyspnea TECHNIQUE: One view of the chest was acquired. COMPARISON: 11/29/2020 FINDINGS: Surgical changes and devices: Pacemaker, valve prosthesis. Lungs and pleura: Mild interstitial change without aicha pulmonary edema. Left basilar pleural thicke tashi and atelectasis. Mediastinum: Mediastinal contours appear normal. Unchanged cardiomegaly. Bones and chest wall: Multiple left rib fractures, as before. No suspicious bony lesions. Overlying soft tissues appear unremarkable. IMPRESSION: Cardiomegaly, diffuse interstitial prominence without aicha pulmonary edema. Reviewed by: Sourav Vazquez MD on 12/17/2020 3:23 PM PDT Approved by: Sourav Vazquez MD on 12/17/2020 3:23 PM PDT Station ID: [id number]
[2020-12-17 17:03] VITALS: BP 128/58
== END 2020-12-17 17:40 | disposition home or self-care (01) ==
LOC: EDUNIT# → ED 13:49
DX: I11.0 Hypertensive heart disease with heart failure (principal); I50.9 Heart failure, unspecified; I89.0 Lymphedema, not elsewhere classified; R79.1 Abnormal coagulation profile; I48.91 Unspecified atrial fibrillation; Z95.0 Presence of cardiac pacemaker; Z79.01 Long term (current) use of anticoagulants; Z95.2 Presence of prosthetic heart valve; Z66 Do not resuscitate; Z90.12 Acquired absence of left breast and nipple
CPT/HCPCS: 36415; 71045; 80053; 83690; 83880; 84484; 85025; 85610; 93005; 96374; 99284; A9270; J1940

== ENCOUNTER 2021-01-13 09:47 | Outpatient (CLI) | payer MEDICARE ==
[2021-01-16 15:46] LABS: HDL LARGE 8904 nmol/L (>6729); LDL MEDIUM 245 nmol/L (<215); LDL PARTICLE NUMBER 1018 nmol/L (<1138); LDL PATTERN B Pattern (A); LDL SMALL 197 nmol/L (<142)
== END 2021-01-13 09:48 | disposition home or self-care (01) ==
LOC: LAB 09:47
PROVIDERS: ATTEND Specialist
DX: E78.00 Pure hypercholesterolemia, unspecified (principal); I48.0 Paroxysmal atrial fibrillation
CPT/HCPCS: 36415; 81599; 82465; 83704; 83735

== ENCOUNTER 2021-01-18 17:40 | Outpatient (CLI) | payer MEDICARE ==
--- NOTE | 2021-01-19 16:26 | XRAY Report ---
PROCEDURE: Thoracic Spine 3 View INDICATIONS: THORACIC BACK PAIN TECHNIQUE: 3 views of the thoracic spine were acquired. COMPARISON: None. FINDINGS: Bones: Thoracic spine is obscured by median sternotomy wires and cardiac pacer leads in the AP view. Bones are severely osteopenic making visualization of the thoracic vertebral bodies difficult. S-sha ped scoliosis of the lumbar spine. Loss of height noted in the T6, T7, T8, T9, T10 and T12 vertebral bodies compatible with compression deformities of indeterminate age. Multilevel degenerative disc dis ease. Soft tissues: No paravertebral stripe thickening. IMPRESSION: 1. Bones are severely osteopenic making evaluation difficult. 2. T6, T7, T8, T9, T10 and T12 compression fractures of indeterminate age. Recommend CT scan of the t horacic spine for further evaluation. Reviewed by: Holli Rubio MD, PhD on 01/19/2021 4:25 PM PDT Approved by: Holli Rubio MD, PhD on 01/19/2021 4:25 PM PDT Station ID: [id number]
== END 2021-01-18 17:41 | disposition home or self-care (01) ==
LOC: DI 17:40
PROVIDERS: ATTEND Internal Medicine
DX: M51.34 Other intervertebral disc degeneration, thoracic region (principal); M43.8X4 Other specified deforming dorsopathies, thoracic region

== ENCOUNTER 2021-02-01 15:31 | Observation (INO) | payer MEDICARE ==
--- NOTE | 2021-02-01 15:57 | ED Physician Documentation ---
PD HPI NVD - Stated complaint Stated Complaint: VOMITING,ABNOMRAL LAB,WEIGHT LOSS - Chief complaint Chief Complaint: General - History obtained from History obtained from: Patient - History of Present Illness Timing - onset: How many weeks ago (2) Timing - duration: Weeks (2) Timing - details: Abrupt onset, Still present, Constant Associated symptoms: Abdominal pain (some upper abd cramping pain, but mostly after eating. Has had consistent nausea with vomiting after food intake. Nausea but not vomiting with fluids. Has still been urinating. Feeling general weakness, and states 18 lb weight loss in the past 2-3 weeks. having difficulty ambulating from back pain.). No: Fever Contributing factors: No: Sick contact, Bad food, Recent antibiotics Improved by: No: Vomiting Worsened by: Eating Similar symptoms before: Has not had sx before Recently seen: Emergency Dept (2 months ago for back pain from compression fractures.) Review of Systems Constitutional: denies: Fever, Chills Nose: denies: Rhinorrhea / runny nose, Congestion Throat: denies: Sore throat Respiratory: denies: Cough GI: reports: Abdominal Pain, Nausea, Vomiting. denies: Constipation, Diarrhea, Bloody / black stool : denies: Dysuria, Frequency Musculoskeletal: reports: Back pain (from multiple compression fractures related to fall/mild injury couple months ago.). denies: Neck pain Neurologic: reports: Generalized weakness, Near syncope. 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: Breast cancer : None HEENT: None Psych: None Musculoskeletal: Osteoporosis Derm: None - Past Surgical History Past Surgical History: Yes General: Appendectomy /TECHNICAL REPORT WRITER: Mastectomy (Left, radical) Cardiovascular: Valve replacement (mechanical aortic valve), Pacemaker - Present Medications Home Medications: Ambulatory Orders Medication Instructions Recorded Confirmed Atorvastatin [Lipitor] 10 mg PO DAILY 05/16/16 02/01/21 Cholecalciferol (Vitamin D3) 1 cap PO .MW 05/16/16 02/01/21 [Vitamin D3] Spironolactone [Aldactone] 25 mg PO DAILY 07/22/20 02/01/21 Metoprolol Succinate [Toprol Xl] 100 mg PO BID 11/30/20 02/01/21 Potassium Chloride Oral Soln 20 meq PO DAILY 11/30/20 02/01/21 [Potassium Chloride] Warfarin [Coumadin] 4 mg PO DAILY 11/30/20 02/01/21 Furosemide [Lasix] 40 mg PO DAILY #30 tablet 12/01/20 02/01/21 Cefadroxil [Duricef] 500 mg PO BID 12/17/20 02/01/21 Lymphedema Compression Sleeve 1 unit TD ONCE 1 Days 12/17/20 02/01/21 amLODIPine [Norvasc] 5 mg PO BID 12/17/20 02/01/21 - Allergies Allergies/Adverse Reactions: Allergies Allergy/AdvReac Type Severity Reaction Status Date / Time codeine AdvReac Unknown Nausea Verified 02/01/21 15:51 - Social History Does the pt smoke?: No Smoking Status: Never smoker Does the pt drink ETOH?: Yes Does the pt have substance abuse?: No - Immunizations Immunizations are current?: Yes - POLST Patient has POLST: No POLST Status: DNR PD ED PE NORMAL - Vitals Vital signs reviewed: Yes - General General: Alert and oriented X 3, Well developed/nourished - HEENT HEENT: No: Moist mucous membranes - Neck Neck: Supple, no meningeal sign, No adenopathy - Cardiac Cardiac: RRR, No murmur - Respiratory Respiratory: Clear bilaterally - Abdomen Abdomen: Soft, Non distended, No organomegaly, Other. No: Normal bowel sounds (decreased) - Derm Derm: Normal color, Warm and dry - Neuro Neuro: Alert and oriented X 3, No motor deficit, Normal speech Results - Vitals Vitals: Vital Signs - 24 hr 02/01/21 02/01/21 02/01/21 15:37 16:02 17:02 Temperature 35.9 C L Heart Rate 84 67 65 Respiratory 22 20 25 H Rate Blood Pressure 88/49 L 100/62 107/59 L O2 Saturation 96 95 96 02/01/21 02/01/21 18:01 19:42 Temperature Heart Rate 63 58 L Respiratory 29 H 22 Rate Blood Pressure 108/58 L O2 Saturation 96 97 Oxygen O2 Source Nasal cannula - Labs Labs: Laboratory Tests 02/01/21 02/01/21 02/01/21 16:47 16:47 16:47 WBC 9.0 RBC 5.81 H Hgb 16.6 H Hct 51.8 H MCV 89.2 MCH 28.6 MCHC 32.0 RDW 17.0 H Plt Count 171 MPV 10.2 Neut # (Auto) 6.8 H Lymph # (Auto) 1.3 L Pope # (Auto) 0.8 Eos # (Auto) 0.1 Baso # (Auto) 0.0 Absolute Nucleated RBC 0.00 Nucleated RBC % 0.0 PT 12.5 INR 1.1 Sodium 137 Potassium 5.6 H Chloride 92 L Carbon Dioxide 33 H Anion Gap 12.0 BUN 38 H Creatinine 1.9 H Estimated GFR (MDRD) 25 L Glucose 146 H Calcium 10.0 Magnesium 2.8 Total Bilirubin 1.8 H AST 62 H ALT 27 Alkaline Phosphatase 228 H Total Creatine Kinase 54 B-Natriuretic Peptide Total Protein 7.5 Albumin 3.5 Globulin 4.0 Albumin/Globulin Ratio 0.9 L Lipase 23 Acetaminophen < 10 L 02/01/21 16:47 WBC RBC Hgb Hct MCV MCH MCHC RDW Plt Count MPV Neut # (Auto) Lymph # (Auto) Pope # (Auto) Eos # (Auto) Baso # (Auto) Absolute Nucleated RBC Nucleated RBC % PT INR Sodium Potassium Chloride Carbon Dioxide Anion Gap BUN Creatinine Estimated GFR (MDRD) Glucose Calcium Magnesium Total Bilirubin AST ALT Alkaline Phosphatase Total Creatine Kinase B-Natriuretic Peptide 657 H Total Protein Albumin Globulin Albumin/Globulin Ratio Lipase Acetaminophen - Rads (name of study) abd CT Radiology: Prelim report reviewed, See rad report chest CT Radiology: Prelim report reviewed, See rad report PD MEDICAL DECISION MAKING - ED course Complexity details: reviewed results (elevated Creatinine compared to 0.9 in A pril, but then 1.7 end of november.), considered differential (seems very dehydrated and with weight loss. Needs IV fluids, but with concern of CHF in the past, do not want to hydrated too briskly. ), d/w patient Departure - Departure Disposition: 66 [facility] DC/Xfer Clinical Impression: Dehydration, Renal insufficiency, Weight loss, Hx of aortic valve replacement, mechanical Nausea and vomiting Qualifiers: Vomiting type: unspecified Vomiting Intractability: intractable Qualified Code(s): R11.2 - Nausea with vomiting, unspecified Condition: Stable Record reviewed to determine appropriate education?: Yes
[2021-02-01] MEDS ORDERED: ONDANSETRON 4 MG/2 ML VIAL IVP STA (16:27)
[2021-02-01] MEDS ORDERED: SODIUM CHLORIDE 0.9% 1,000 ML IV STA (16:27)
[2021-02-01] MEDS ORDERED: FAMOTIDINE 20 MG/2 ML VIAL IVP STA (16:28)
[2021-02-01 17:01] LABS: BASOPHILS % (AUTO) 0.3 %; EOSINOPHILS # (AUTO) 0.1 10^3/uL (0.0-0.7); EOSINOPHILS % (AUTO) 1.1 %; HCT - HEMATOCRIT 51.8 % (37.0-47.0); HGB - HEMOGLOBIN 16.6 g/dL (12.0-16.0); LYMPHOCYTES # (AUTO) 1.3 10^3/uL (1.5-3.5); LYMPHOCYTES % (AUTO) 14.1 %; MEAN CORPUSCULAR HEMOGLOBIN 28.6 pg (27.0-31.0); MEAN CORPUSCULAR VOLUME 89.2 fL (81.0-99.0); MEAN PLATELET VOLUME 10.2 fL (7.9-10.8); MONOCYTES # (AUTO) 0.8 10^3/uL (0.0-1.0); MONOCYTES % (AUTO) 9.3 %; NEUTROPHILS # (AUTO) 6.8 10^3/uL (1.5-6.6); PLT - PLATELET COUNT 171 10^3/uL (130-450); RED BLOOD COUNT 5.81 10^6/uL (4.20-5.40)
[2021-02-01 17:06] LABS: INR 1.1 (0.8-1.2); PT - PROTHROMBIN TIME 12.5 secs (9.9-12.6)
[2021-02-01 17:27] LABS: ACETAMINOPHEN < 10 ug/mL (10-30); ALBUMIN 3.5 g/dL (3.2-5.5); ALBUMIN/GLOBULIN RATIO 0.9 (1.0-2.2); ALKALINE PHOSPHATASE 228 IU/L (42-121); ALT ALANINE AMINOTRANSFERASE 27 IU/L (10-60); AST ASPARTATE AMINOTRANSFERASE 62 IU/L (10-42); BILIRUBIN,TOTAL 1.8 mg/dL (0.2-1.0); BUN - BLOOD UREA NITROGEN 38 mg/dL (6-20); CARBON DIOXIDE - CO2 33 mmol/L (21-32); CHLORIDE 92 mmol/L (101-111); CK- CREATINE KINASE 54 IU/L (22-269); CREATININE 1.9 mg/dL (0.4-1.0); GFR - MDRD 25 (>89); GLUCOSE 146 mg/dL (70-100); LIPASE 23 U/L (22-51); MAGNESIUM 2.8 mg/dL (1.7-2.8); POTASSIUM 5.6 mmol/L (3.5-5.0); SODIUM 137 mmol/L (135-145); TOTAL PROTEIN 7.5 g/dL (6.7-8.2)
[2021-02-01] MEDS ORDERED: IOVERSOL 320 100 ML VIAL IVP ONE (17:35)
--- NOTE | 2021-02-01 18:35 | CT Report ---
PROCEDURE: Abdomen/Pelvis WO INDICATIONS: nausea/vomiting for 2 weeks TECHNIQUE: Noncontrast 5 mm thick sections acquired from the diaphragms to the symphysis. 5 mm coronal and sagi ttal reformats were then performed. For radiation dose reduction, the following was used: automated exposure control, adjustment of mA and/or kV according to patient size. COMPARISON: None. FINDINGS: Image quality: Excellent. ABDOMEN: Lung bases: Lung bases are clear. Heart size is enlarged. Pacer wires, dense mitral annular calcific ation and mitral clip noted. Solid organs: Liver and spleen are normal in size. Gallbladder unremarkable. Pancreas is normal in contours. No adrenal nodules. Kidneys are normal in size, without hydronephrosis or nephrolithiasi s. Peritoneum and bowel: Unenhanced bowel loops demonstrate normal wall thickness and caliber. No free fluid or air. Multiple diverticula arise from the sigmoid colon without evidence of diverticulitis. Nodes and vessels: No retroperitoneal or mesenteric adenopathy by size criteria. Aorta and inferior vena cava are normal in caliber. Diffuse atherosclerotic vascular calcification Miscellaneous: No ventral hernias. PELVIS: Genitourinary: Bladder wall thickness is normal. Miscellaneous: No inguinal hernias or adenopathy. Bones: Old healed fracture of the right inferior pubic ramus noted. L2 compression fracture is unchan ged in prior exam. Mild L4-5 anterolisthesis. Multilevel degenerative disc disease and arthropathy re sults in severe central stenosis at L4-5. IMPRESSION: No acute noncontrasted CT abdomen and pelvis findings. Chronic findings include sigmoid diverticulosis without evidence of diverticulitis and old L2 eleanor pao fractures. Multilevel degenerative disc disease results in severe central stenosis L4-5 Reviewed by: Dale Moya MD on 02/01/2021 5:34 PM AKDT Approved by: Dale Moya MD on 02/01/2021 5:34 PM AKDT Station ID: [id number]
--- NOTE | 2021-02-01 18:49 | CT Report ---
PROCEDURE: CHEST WO INDICATIONS: persistent thoraccic pain TECHNIQUE: Noncontrast 5 mm thick sections acquired from the pulmonary apices to the posterior costophrenic angl es. 7 mm thick coronal and sagittal MIP reformats were then acquired. For radiation dose reduction, the following was used: automated exposure control, adjustment of mA and/or kV according to patient size. COMPARISON: October 14, 2020 FINDINGS: Image quality: Excellent. Lungs and pleura: No acute air space opacities. No pleural effusions or pneumothorax. Central and peripheral airways are patent and normal in caliber. Diffuse chronic interstitial changes with biapi darien pulmonary apices. Mediastinum: Heart size enlarged, there are pacer wires. Densely calcified mitral and aortic annulus is noted with mitral clip in place. There is a calcified coronary vessels are present as well. 3.7 cm ascending thoracic aortic aneurysm remains unchanged. Bones and chest wall: No axillary or supraclavicular adenopathy by size criteria. The thyroid is no rmal in size and there are no incidental findings. T8 compression fracture remains unchanged. There are new T5 and T7 compression fractures with 50% hei ght. Small retropulsed fracture fragment at T5 results in mild central stenosis. Old left-sided rib f ractures show sclerosis and bridging callus. No pneumothorax. There is nonunion and distraction of th e left clavicular fracture. Midline sternal wires present. Incidental left mastectomy noted. IMPRESSION: 1. New T5 and T7 osteopenic compression fractures with 50% height loss. Old T8 compression fracture i s stable. 2. Nonunion and distraction of the previously described left clavicular fracture. Healing left-sided rib fractures. 3. Cardiomegaly, dense diffuse atherosclerotic calcification, and 3.7 cm descending thoracic aortic a neurysm, stable Reviewed by: Dale Moya MD on 02/01/2021 5:48 PM AKDT Approved by: Dale Moya MD on 02/01/2021 5:48 PM AKDT Station ID: [id number]
--- NOTE | 2021-02-01 19:00 | ED Physician Documentation ---
PD HPI NVD - Stated complaint Stated Complaint: VOMITING,ABNOMRAL LAB,WEIGHT LOSS - Chief complaint Chief Complaint: General - History obtained from History obtained from: Patient - History of Present Illness Timing - onset: How many days ago (3) Timing - duration: Days (3) Timing - details: Gradual onset, Still present Associated symptoms: Loss of appetite, Weight loss Improved by: Vomiting Worsened by: Eating Similar symptoms before: Diagnosis (gastroenteritis) Recently seen: Emergency Dept - Additonal information Additional information: 85-year-old female with a history of aortic valve replacement tricuspid valve afib, congestive heart failure, pacemaker, a chest wall defect from a procedure that never healed well. Breast cancer with lymphedema to the left arm who has had difficulty with vomiting and diarrhea or constipation since a fall in September. She has some compression fractures in her back. Over the past 3 days she has had persistent vomiting and she has now developed weakness associated with this. She is not able to hold any fluids down and she has had weight loss. She has had difficulty with balancing her diuretic with her vomiting and she has discontinued her diuretic while she has been vomiting. She has not been taking anti-emetic. Review of Systems Constitutional: denies: Fever Eyes: denies: Decreased vision Ears: denies: Ear pain Nose: denies: Congestion Throat: denies: Sore throat Cardiac: denies: Chest pain / pressure, Palpitations, Pedal edema, Calf pain Respiratory: reports: Dyspnea (usual). denies: Cough GI: reports: Nausea, Vomiting, Constipation, Diarrhea. denies: Abdominal Pain : denies: Dysuria, Frequency Skin: denies: Rash Musculoskeletal: denies: Neck pain, Back pain, Extremity pain Neurologic: reports: Generalized weakness. denies: Focal weakness, Numbness, Difficulty speaking PD PAST MEDICAL HISTORY - Past Medical History Cardiovascular: Congestive heart failure, Hypertension, High cholesterol, Atrial fibrillation Respiratory: Other Neuro: Peripheral neuropathy Endocrine/Autoimmune: None GI: None SHEAR TENDER: Breast cancer : None HEENT: None Psych: None Musculoskeletal: Osteoporosis Derm: None - Past Surgical History Past Surgical History: Yes General: Appendectomy /SHEAR TENDER: Mastectomy (Left, radical) Cardiovascular: Valve replacement (mechanical aortic valve), Pacemaker - Present Medications Home Medications: Ambulatory Orders Medication Instructions Recorded Confirmed Atorvastatin [Lipitor] 10 mg PO DAILY 05/16/16 02/01/21 Cholecalciferol (Vitamin D3) 1 cap PO .MWF 05/16/16 02/01/21 [Vitamin D3] Spironolactone [Aldactone] 25 mg PO DAILY 07/22/20 02/01/21 Metoprolol Succinate [Toprol Xl] 100 mg PO BID 11/30/20 02/01/21 Potassium Chloride Oral Soln 20 meq PO DAILY 11/30/20 02/01/21 [Potassium Chloride] Warfarin [Coumadin] 4 mg PO DAILY 11/30/20 02/01/21 Furosemide [Lasix] 40 mg PO DAILY #30 tablet 12/01/20 02/01/21 Cefadroxil [Duricef] 500 mg PO BID 12/17/20 02/01/21 Lymphedema Compression Sleeve 1 unit TD ONCE 1 Days 12/17/20 02/01/21 amLODIPine [Norvasc] 5 mg PO BID 12/17/20 02/01/21 - Allergies Allergies/Adverse Reactions: Allergies Allergy/AdvReac Type Severity Reaction Status Date / Time codeine AdvReac Unknown Nausea Verified 02/01/21 15:51 - Social History Does the pt smoke?: No Smoking Status: Never smoker Does the pt drink ETOH?: Yes Does the pt have substance abuse?: No - Immunizations Immunizations are current?: Yes - POLST Patient has POLST: No POLST Status: DNR PD ED PE NORMAL - Vitals Vital signs reviewed: Yes - General General: Alert and oriented X 3, No acute distress, Well developed/nourished, Other (quite speaking ) - HEENT HEENT: Atraumatic, PERRL, EOMI - Neck Neck: Supple, no meningeal sign, No bony TTP - Cardiac Cardiac: RRR, Other (2/6 holosystolic murmer with end systolic click ) - Respiratory Respiratory: No respiratory distress, Other (diminished breath sounds. 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, No motor deficit, No sensory deficit, Other Eye Opening: Spontaneous Motor: Obeys Commands Verbal: Oriented GCS Score: 15 - Psych Psych: Normal mood, Normal affect Results - Vitals Vitals: Vital Signs - 24 hr 02/01/21 02/01/21 02/01/21 15:37 16:02 17:02 Temperature 35.9 C L Heart Rate 84 67 65 Respiratory 22 20 25 H Rate Blood Pressure 88/49 L 100/62 107/59 L O2 Saturation 96 95 96 02/01/21 02/01/21 18:01 19:42 Temperature Heart Rate 63 58 L Respiratory 29 H 22 Rate Blood Pressure 108/58 L O2 Saturation 96 97 Oxygen O2 Source Nasal cannula - Labs Labs: Laboratory Tests 02/01/21 02/01/21 02/01/21 16:47 16:47 16:47 WBC 9.0 RBC 5.81 H Hgb 16.6 H Hct 51.8 H MCV 89.2 MCH 28.6 MCHC 32.0 RDW 17.0 H Plt Count 171 MPV 10.2 Neut # (Auto) 6.8 H Lymph # (Auto) 1.3 L Kaufman # (Auto) 0.8 Eos # (Auto) 0.1 Baso # (Auto) 0.0 Absolute Nucleated RBC 0.00 Nucleated RBC % 0.0 PT 12.5 INR 1.1 Sodium 137 Potassium 5.6 H Chloride 92 L Carbon Dioxide 33 H Anion Gap 12.0 BUN 38 H Creatinine 1.9 H Estimated GFR (MDRD) 25 L Glucose 146 H Calcium 10.0 Magnesium 2.8 Total Bilirubin 1.8 H AST 62 H ALT 27 Alkaline Phosphatase 228 H Total Creatine Kinase 54 B-Natriuretic Peptide Total Protein 7.5 Albumin 3.5 Globulin 4.0 Albumin/Globulin Ratio 0.9 L Lipase 23 Acetaminophen < 10 L 02/01/21 16:47 WBC RBC Hgb Hct MCV MCH MCHC RDW Plt Count MPV Neut # (Auto) Lymph # (Auto) Kaufman # (Auto) Eos # (Auto) Baso # (Auto) Absolute Nucleated RBC Nucleated RBC % PT INR Sodium Potassium Chloride Carbon Dioxide Anion Gap BUN Creatinine Estimated GFR (MDRD) Glucose Calcium Magnesium Total Bilirubin AST ALT Alkaline Phosphatase Total Creatine Kinase B-Natriuretic Peptide 657 H Total Protein Albumin Globulin Albumin/Globulin Ratio Lipase Acetaminophen - Rads (name of study) CT ab/pel Radiology: Prelim report reviewed (Impression: No acute noncontrast CT abdomen and pelvis findings., Chronic findings include sigmoid diverticulosis without evidence of diverticulitis and old L2 compression fractures. Multilevel degenerative disc disease resulting in severe central stenosis L4-5), EMP read indepedently, See rad report CT chest Radiology: Prelim report reviewed (: 1. New T5 and T7 osteopenic compression fractures with 8% height loss. Old T8 compression fracture is stable. 2. Nonunion and distraction of the previously described left clavicular fracture. Healing left-sided rib fracture.), Final report received (3. Cardiomegaly, dense diffuse atherosclerotic calcification in 3.7 cm descending thoracic aortic aneurysm stable), EMP read indepedently, See rad report Procedures - IVC sono (time) 1999 Bedside IVC sono: IVC measures (cm) (0.98), Dehydration (est 2 liter deficit after one liter is in.) PD MEDICAL DECISION MAKING - ED course Complexity details: reviewed old records, reviewed results, re-evaluated patient, considered differential, d/w patient ED course: 85-year-old female with a complicated history including some congestive heart failure has had some issues with fluid balance she was in the hospital in November with congestive heart failure and today she is in the emergency department significantly dehydrated after 3 days of vomiting. She was seen by Dr. Eli who obtained CTs of the chest and abdomen and provided 1 L of hydration. Following the liter of hydration the patient still remains significantly dehydrated on interrogation of the inferior vena cava. She will need further hydration and this should be done more slowly than we are able to provide in the ED. Departure - Departure Disposition: 66 [facility] DC/Xfer Clinical Impression: Dehydration, Renal insufficiency, Weight loss Nausea and vomiting Qualifiers: Vomiting type: unspecified Vomiting Intractability: intractable Qualified Code(s): R11.2 - Nausea with vomiting, unspecified Condition: Stable
[2021-02-01] MEDS ORDERED: SODIUM CHLORIDE FLUSH 0.9% 10 ML SYRINGE IVP PRN (20:44)
[2021-02-01] MEDS ORDERED: ACETAMINOPHEN 325 MG TABLET PO PRN (20:44)
[2021-02-01] MEDS ORDERED: ONDANSETRON 4 MG/2 ML VIAL IVP PRN (20:44)
--- NOTE | 2021-02-01 20:48 | HISTORY & PHYSICAL EXAMINATION ---
Chief Complaint - Chief Complaint Chief Complaint: nausea, vomiting, weakness, dehydration History of Present Illness - Admitted From Admitted From:: [facility] ED - History Obtained From Records Reviewed: yes History obtained from: patient - History of Present Illness HPI Comment/Other: Patient is an 85-year-old female with medical history significant for CHF, hyperlipidemia, atrial fibrillation, hypertension, history of breast cancer status post radical left mastectomy, chronic left upper extremity lymphedema secondary to mastectomy, pacemaker placement, history of mechanical aortic valve who presented to the ED with complaint of nausea and vomiting for the past 3 days. She has been unable to keep anything down. As a result she is s ignificantly dehydrated. She has very dry oral mucosa and is very weak. She complains of dizziness when she gets out of bed. She is very frail and cachectic. She currently weighs 78lbs and reports that about 3 months ago she was 110lbs. In the ED her systolic blood pressure was 88. Work-up in the ED showed creatinine 1.9 BUN 38 potassium 5.6 BNP 657. She was presented for admission for further treatment. At bedside she denies chest pain, dyspnea, abdominal pain, fever or chills. 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 Father had CVA. Social History Notes: She does not use tobacco products or recreational substances. She consumes alcohol occasionally. She lives alone but her former [id number] lives in the apartment upstairs. She is independent of activities of daily living. - POLST Patient has POLST: No POLST Status: DNR Meds/Allgy - Home Medications Home Medications: Ambulatory Orders Medication Instructions Recorded Confirmed Atorvastatin [Lipitor] 10 mg PO DAILY 05/16/16 02/01/21 Cholecalciferol (Vitamin D3) 1 cap PO .MWF 05/16/16 02/01/21 [Vitamin D3] Spironolactone [Aldactone] 25 mg PO DAILY 07/22/20 02/01/21 Metoprolol Succinate [Toprol Xl] 100 mg PO BID 11/30/20 02/01/21 Potassium Chloride Oral Soln 20 meq PO DAILY 11/30/20 02/01/21 [Potassium Chloride] Warfarin [Coumadin] 4 mg PO DAILY 11/30/20 02/01/21 Furosemide [Lasix] 40 mg PO DAILY #30 tablet 12/01/20 02/01/21 Cefadroxil [Duricef] 500 mg PO BID 12/17/20 02/01/21 Lymphedema Compression Sleeve 1 unit TD ONCE 1 Days 12/17/20 02/01/21 amLODIPine [Norvasc] 5 mg PO BID 12/17/20 02/01/21 - Allergies Allergies/Adverse Reactions: Allergies Allergy/AdvReac Type Severity Reaction Status Date / Time codeine AdvReac Unknown Nausea Verified 02/01/21 15:51 Review of Systems - Constitutional Constitutional: reports: Fatigue, Weakness, Poor appetite, Weight loss. denies: Fever, Chills - Eyes Eyes: denies: Pain, Irritation, Vision loss - Ears, Nose & Throat Ears, Nose & Throat: denies: Ear pain, Sore throat - Cardiovascular Cariovascular: reports: Irregular heart rate. denies: Chest pain - Respiratory Respiratory: reports: SOB with exertion. denies: Cough, Sputum production, Wheezing, SOB at rest - Gastrointestinal Gastrointestinal: reports: Nausea, Vomiting, Poor appetite. denies: Abdominal pain, Abdominal distention, Constipation - Genitourinary Genitourinary: denies: Dysuria, Frequency, Urgency, Hematuria - Musculoskeletal Musculoskeletal: denies: Muscle pain, Muscle aches - Integumentary Integumentary: denies: Rash, Pruritis, Lesions, Dryness - Neurological Neurological: reports: General weakness. denies: Focal weakness, Headache - Psychiatric Psychiatric: reports: Depression. denies: Anxiety, Suicidal - Endocrine Endocrine: denies: Polyuria - Hematologic/Lymphatic Hematologic/Lymphatic: reports: Bruising. denies: Anemia, Petechiae Prior Level of Functionality: Very weak/ frail. She has mainly been in the house for the past month. Uses a walker to get around the house. Exam - Vital Signs Vital Signs: Vital Signs x48h Temp Pulse Resp BP Pulse Ox 02/01/21 19:42 58 L 22 108/58 L 97 02/01/21 18:01 63 29 H 96 02/01/21 17:02 65 25 H 107/59 L 96 02/01/21 16:02 67 20 100/62 95 02/01/21 15:37 35.9 C L 84 22 88/49 L 96 - Physical Exam General Appearance: positive: No acute distress, Alert, Other (cachexic, frail, weak,) Eyes Bilateral: positive: PERRL, EOMI ENT: positive: Dry mucous membranes Neck: positive: No JVD, Trachea midline Respiratory: positive: Chest non-tender, No respiratory distress, Breath sounds nml. negative: Wheezes, Rales, Rhonchi Cardiovascular: positive: Irregularly irregular Abdomen: positive: Non-tender, No organomegaly, Nml bowel sounds, No distention. negative: Tenderness, Guarding, Rebound Back: positive: Nml inspection Skin: positive: No rash, Warm, Dry Extremities: positive: Non-tender, Full ROM, No pedal edema, Other (chronic lymphedema in left upper extremity) Neurologic/Psychiatric: positive: Oriented x3, Depressed mood/affect Conclusion/Plan - Problem List (1) Dehydration Conclusion/Plan: Secondary to nausea and vomiting. Systolic blood pressure upon presentation to the ED was 88. A 1 L bolus of normal saline. We will continue normal saline at 100 mL/h. We will hold patient's Lasix, spironolactone, amlodipine and metoprolol due to hypotension related to intravascular volume depletion. (2) Renal insufficiency Conclusion/Plan: Creatinine was 1.9 with BUN of 38. This is likely secondary to volume depletion from nausea and vomiting. Patient is being gently hydrated with normal saline at 100 mL/h. Anticipating improvement. (3) Nausea and vomiting Conclusion/Plan: Etiology undetermined. We will treat with Zofran. Full liquid diet. Will advance as tolerated. Qualifiers: Vomiting type: unspecified Vomiting Intractability: intractable Qualified Code(s): R11.2 - Nausea with vomiting, unspecified (4) Congestive heart failure Conclusion/Plan: Her BNP of 647. However she appears intravascularly volume depleted. Her IVC was readily collapsible on exam in the ED. Significantly dry oral mucosa. SBP was 88 at presentation. Lungs sound clear She has had poor oral intake for the past 3 days due to nausea and vomiting. We will hold patient's metoprolol, Lasix and spironolactone for now while gently hydrating with normal saline Qualifiers: Heart failure type: unspecified Qualified Code(s): I50.9 - Heart failure, unspecified (5) Compression fracture Conclusion/Plan: T5 with mild central stenosis and T7 are new when CT chest of 02/01 compared to that of 10/14 T8 old and stable 10 hot fallen in September and sustained multiple fractures which included left clavicular fracture and multiple rib fractures. She was flown to [place] following that incident Pain management prn (6) History of atrial fibrillation Conclusion/Plan: We will hold metoprolol for now due to hypotension with a low systolic blood pressure of 88. Patient INR was 1.1. We will continue her Coumadin and monitor INR. (7) Hx of aortic valve replacement, mechanical Conclusion/Plan: Will resume patient's Coumadin 4mg po daily. INR was 1.1 today (8) Hyperlipidemia Conclusion/Plan: Atorvastatin 10 mg p.o. daily (9) Lymphedema Conclusion/Plan: In left upper extremity. Secondary to radical mastectomy Patient has a compressive sleeve she normally wears in bed. - Lab Results Fish Bones: 02/01/21 16:47 02/01/21 16:47 Core Measures - Anticipated LOS I expect patient to be DC'd or transferred within 96 hours.: Yes - DVT/VTE - Prophylaxis VTE/DVT Device ordered at admit?: Yes VTE/DVT Prophylaxis med ordered at admit?: Yes
[2021-02-01 22:24] LABS: BILIRUBIN,URINE NEGATIVE (NEGATIVE); GLUCOSE, URINE (UA) NEGATIVE (NEGATIVE); KETONES,URINE (UA) NEGATIVE (NEGATIVE); LEUKOCYTE ESTERASE, URINE NEGATIVE (NEGATIVE); NITRITE,URINE NEGATIVE (NEGATIVE); OCCULT BLOOD,URINE NEGATIVE (NEGATIVE); PROTEIN,URINE NEGATIVE (NEGATIVE); UROBILINOGEN,URINE 0.2 (NORMAL) E.U./dL (NORMAL)
[2021-02-01] MEDS: SODIUM CHLORIDE 0.9% 1,000 ML IV SCH (22:24)
[2021-02-01 22:27] LABS: CLARITY,URINE CLEAR (CLEAR)
[2021-02-01 22:54] LABS: B. PARAPERTUSSIS- RESP PCR PAN NOT DETECTED; B. PERTUSSIS- RESP PCR PANEL NOT DETECTED; C. PNEUMONIAE- RESP PCR PANEL NOT DETECTED; CORONAVIRUS 229E-RESP PCR NOT DETECTED; CORONAVIRUS HKU1-RESP PCR NOT DETECTED; CORONAVIRUS NL63-RESP PCR NOT DETECTED; CORONAVIRUS OC43-RESP PCR NOT DETECTED; HUMAN METAPNEUMOVIRUS NOT DETECTED; INFLUENZA A- RESP PCR PANEL NOT DETECTED; INFLUENZA B - RESP PCR PANEL NOT DETECTED; M. PNEUMONIAE- RESP PCR PANEL NOT DETECTED; PARAINFLUENZA VIRUS 1 NOT DETECTED; PARAINFLUENZA VIRUS 2 NOT DETECTED; PARAINFLUENZA VIRUS 3 NOT DETECTED; PARAINFLUENZA VIRUS 4 NOT DETECTED; RHINOVIRUS/ENTEROVIRUS NOT DETECTED; RSV- RESP PCR PANEL NOT DETECTED; SARS-CoV-2 -RESP PCR PANEL NOT DETECTED
[2021-02-01] MEDS ORDERED: MIN OIL/DIMETHICON/COCONUT OIL 92 GM TUBE TOP PRN (22:56)
[2021-02-02] MEDS: SODIUM CHLORIDE FLUSH 0.9% 10 ML SYRINGE IVP SCH ×2 (00:05→07:58)
[2021-02-02 05:07] LABS: BASOPHILS % (AUTO) 0.5 %; EOSINOPHILS # (AUTO) 0.2 10^3/uL (0.0-0.7); EOSINOPHILS % (AUTO) 2.7 %; HCT - HEMATOCRIT 45.3 % (37.0-47.0); HGB - HEMOGLOBIN 14.4 g/dL (12.0-16.0); LYMPHOCYTES # (AUTO) 1.3 10^3/uL (1.5-3.5); LYMPHOCYTES % (AUTO) 15.9 %; MEAN CORPUSCULAR HEMOGLOBIN 28.6 pg (27.0-31.0); MEAN CORPUSCULAR HGB CONC 31.8 g/dL (32.0-36.0); MEAN CORPUSCULAR VOLUME 90.1 fL (81.0-99.0); MEAN PLATELET VOLUME 9.4 fL (7.9-10.8); MONOCYTES # (AUTO) 0.9 10^3/uL (0.0-1.0); MONOCYTES % (AUTO) 10.8 %; NEUTROPHILS # (AUTO) 5.5 10^3/uL (1.5-6.6); NEUTROPHILS % (AUTO) 69.8 %; PLT - PLATELET COUNT 146 10^3/uL (130-450); RED BLOOD COUNT 5.03 10^6/uL (4.20-5.40); RED CELL DISTRIBUTION WIDTH 16.2 % (12.0-15.0); WHITE BLOOD COUNT 7.9 x10^3/uL (4.8-10.8)
[2021-02-02 05:09] LABS: INR 1.1 (0.8-1.2); PT - PROTHROMBIN TIME 12.3 secs (9.9-12.6)
[2021-02-02 05:13] LABS: CALCIUM 9.2 mg/dL (8.5-10.3); CREATININE 1.4 mg/dL (0.4-1.0); POTASSIUM 3.9 mmol/L (3.5-5.0)
[2021-02-02] MEDS: SODIUM CHLORIDE 0.9% 1,000 ML IV SCH (07:57)
[2021-02-02] MEDS ORDERED: SODIUM CHLORIDE 0.9% 1,000 ML IV SCH (08:25)
[2021-02-02] MEDS ORDERED: [UNRECOGNIZED DRUG - OTHER] TD SCH (08:30)
[2021-02-02] MEDS ORDERED: traMADol 50 MG TABLET PO PRN (08:35)
[2021-02-02] MEDS ORDERED: METOPROLOL SUCCINATE 50 MG TABLET PO SCH ×2 (09:00→10:00)
[2021-02-02] MEDS ORDERED: ENOXAPARIN 30 MG/0.3 ML SYRINGE SUBQ SCH (09:00)
[2021-02-02] MEDS ORDERED: WARFARIN 5 MG TABLET PO SCH (09:00)
--- NOTE | 2021-02-02 11:21 | PHARMACY PROGRESS NOTE ---
- Best Possible Medication History Admit Date and Time: 02/01/212043 Processed by: Nursing Medication History completed: Yes Patient Interview: Completed (MED REC COMPLETED BY NURSING) As the person ultimately responsible for medication therapy, providers are able to order a medication from an existing home medication list in [facility] via the "Reconcile Routine" prior to Confirmation of that medication by desktop support specialist. Such practice is discouraged except when the physician, in their clinical judgment, deems that a medical need exists for a medication without regard to previous use.
--- NOTE | 2021-02-02 13:30 | Discharge Plan ---
Discharge Plan Problem Reviewed?: Yes Disposition: Home, Self Care Condition: Stable Prescriptions: Calcium Citrate 250 mg PO DAILY #30 tablet Enoxaparin [Lovenox] 30 mg SUBQ BID 3 Days #6 vial Diet: Regular Activity Restrictions: Activity as Tolerated Shower Restrictions: No (fall precaution) Instruction Topics: Enoxaparin injection, Calcium Vitamin D oral tablets, International Normalized Ratio, Nausea Vomit Control, Dehydration, Heart Failure Coping Health Concerns: nausea, vomiting and dehydration. Mechanical aortic valve replacement, osteopenic compression fractures Plan of Treatment: You tolerate regular diet, and your nausea and vomiting are resolved now. It can be caused by gastritis. You may keep hydration at home but also prevention of fluid overloaded. You may resume your home medications. Your have low INR and you had hx of mechanical aortic valve replacement. Three days of Lovenox are prescribed for you. Please followup with nurse's instruction for SUBQ injection of Lovenox. You may followup with your PCP in one week to recheck your PT/INR, monitor your Kidney function. You may resume your home Coumadin dosage as well. you are found to have osteopenic compression fractures in T5 and T7 of your spinal cord. Calcium citrate is prescribed for you, resume your home vitamin D3. physical therapist evaluated and treated for you, you did very well. Care Goals: stabilization and improvement of your medical conditions Assessment: Discussed the care plan with you, answered your questions, you understood. Additional Instructions or Follow Up instructions: You may followup with your PCP in one week, and have PT/INR check and kidney function check. Should your symptoms return or worsen, you may present to ER or call 911 for help. No Smoking: If you smoke, Please STOP! Call for help. Follow-up with: Jasmin Garland MD [Primary Care Provider] -
[2021-02-02] MEDS ORDERED: CALCIUM CITRATE 250 MG TABLET PO SCH (13:35)
[2021-02-02] MEDS ORDERED: WARFARIN 1 MG TABLET PO SCH (14:00)
--- NOTE | 2021-02-02 14:01 | DISCHARGE SUMMARY ---
Discharge Summary Admit Date: 02/01/21 Discharge Date: 02/02/21 Discharging Provider: Tk Carbajal Primary Care Provider: Jasmin Adams Condition at Discharge: Stable Discharge Disposition: 01 Home, Self Care Discharge Facility Name: home - DIAGNOSES Discharge Diagnoses with Status of Each Condition: (1) Nausea and vomiting resolved. pt tolerated regular diet without nausea or vomiting. It is likely caused by virus gastritis. (2) Dehydration creatinine is closely as her baseline. pt had IVF in hospital. Clinically pt's dehydration was resolved. pt is likely caused by pt's nausea and vomiting. (3) Renal insufficiency improved. creatinine is closely as her baseline. (4) Congestive heart failure pt has hx of CHF, diastolic heart failure. pt has elevated BNP as pt's previous. pt has no respiratory distress. pt has 93% sat on room air. resume home meds, followup with weatherization field technician as out-pt (5) Compression fracture T5 and T7 are new osteopenic compression fracture. pt is prescribe Calcium citrate, resume home Vitamin D3. PT/OT Evaluated and treated for patient. PT recommended patient can safely be discharged . (6) History of atrial fibrillation stable, resume home meds (7) Hx of aortic valve replacement, mechanical INR was 1.1 today. pt had Lovenox in hospital, and pt had increased dosage to 7 mg Coumadin at hospital. pt take 4 mg Coumadin daily. pt is prescribed three days of Lovenox for bridge, resume home coumadin, recheck PT/INR with PCP and continue management with her PCP. (8) Hyperlipidemia stable (9) Lymphedema stable. - HPI History of Present Illness: refer from Dr. Andrea's HPI on 02/01/21 Patient is an 85-year-old female with medical history significant for CHF, hyperlipidemia, atrial fibrillation, hypertension, history of breast cancer sta tus post radical left mastectomy, chronic left upper extremity lymphedema secondary to mastectomy, pacemaker placement, history of mechanical aortic valve who presented to the ED with complaint of nausea and vomiting for the past 3 days. She has been unable to keep anything down. As a result she is significantly dehydrated. She has very dry oral mucosa and is very weak. She complains of dizziness when she gets out of bed. She is very frail and cachectic. She currently weighs 78lbs and reports that about 3 months ago she was 110lbs. In the ED her systolic blood pressure was 88. Work-up in the ED showed creatinine 1.9 BUN 38 potassium 5.6 BNP 657. She was presented for admission for further treatment. At bedside she denies chest pain, dyspnea, abdominal pain, fever or chills. - HOSPITAL COURSE Hospital Course: Patient was admitted for nausea, vomiting and dehydration. After the patient had bowel rest and intravenous IV fluids, patient feel much better, patient's nausea and vomiting was resolved. Patient tolerated regular diet without nausea or vomiting. Patient's dehydration was resolved. 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 INR was 1.1. Patient was give Lovenox in the hospital, increased Coumadin dosage in the hospital. patient was prescribed 3 days of Lovenox for bridge, resume Home Coumadin, follow-up her PCP to recheck PT and INR, continue management with her PCP. Patient also had PT and OT evaluation and treatment. Patient was discharged at hemodynamically stable condition - ALLERGIES Allergies/Adverse Reactions: Allergies Allergy/AdvReac Type Severity Reaction Status Date / Time codeine AdvReac Unknown Nausea Verified 02/01/21 15:51 - MEDICATIONS Home Medications: Ambulatory Orders Medication Instructions Recorded Confirmed Atorvastatin [Lipitor] 10 mg PO DAILY 05/16/16 02/01/21 Cholecalciferol (Vitamin D3) 1 cap PO .MWF 05/16/16 02/01/21 [Vitamin D3] Spironolactone [Aldactone] 25 mg PO DAILY 07/22/20 02/01/21 Metoprolol Succinate [Toprol Xl] 100 mg PO BID 11/30/20 02/01/21 Potassium Chloride Oral Soln 20 meq PO DAILY 11/30/20 02/01/21 [Potassium Chloride] Warfarin [Coumadin] 4 mg PO DAILY 11/30/20 02/01/21 Furosemide [Lasix] 40 mg PO DAILY #30 tablet 12/01/20 02/01/21 Cefadroxil [Duricef] 500 mg PO BID 12/17/20 02/01/21 amLODIPine [Norvasc] 5 mg PO BID 12/17/20 02/01/21 Calcium Citrate 250 mg PO DAILY #30 tablet 02/02/21 Enoxaparin [Lovenox] 30 mg SUBQ BID 3 Days #6 vial 02/02/21 - PHYSICAL EXAM AT DISCHARGE General Appearance: positive: No acute distress, Alert. negative: Lethargic Eyes Bilateral: positive: Normal inspection, PERRL, No lid inflammation ENT: positive: ENT inspection nml, No signs of dehydration. negative: Purulent nasal drainage Neck: positive: Nml inspection, Trachea midline. negative: Thyromegaly, Tracheal deviation Respiratory: positive: Chest non-tender, No respiratory distress, Breath sounds nml. negative: Wheezes, Rales Cardiovascular: positive: Regular rate & rhythm, Systolic murmur. negative: Tachycardia, Bradycardia Peripheral Pulses: positive: 2+ Abdomen: positive: Non-tender, Nml bowel sounds, No distention. negative: Tenderness Back: positive: Nml inspection Skin: positive: Color nml, Warm, Dry. negative: Cyanosis, Diaphoresis Extremities: positive: Non-tender, Full ROM, Nml appearance. negative: Calf tenderness Neurologic/Psychiatric: positive: Oriented x3, Motor nml, Sensation nml, Mood/affect nml. negative: Weakness, Sensory loss, Facial droop, Slurred/abnml speech, Depressed mood/affect - LABS Result Diagrams: 02/02/21 04:55 02/02/21 04:55 - FOLLOW UP Follow Up: You tolerate regular diet, and your nausea and vomiting are resolved now. It can be caused by gastritis. You may keep hydration at home but also prevention of fluid overloaded. You may resume your home medications. Your have low INR and you had hx of mechanical aortic valve replacement. Three days of Lovenox are prescribed for you. Please followup with nurse's instruction for SUBQ injection of Lovenox. You may followup with your PCP in one week to recheck your PT/INR, monitor your Kidney function. You may resume your home Coumadin dosage as well. you are found to have osteopenic compression fractures in T5 and T7 of your spinal cord. Calcium citrate is prescribed for you, resume your home vitamin D3. physical therapist evaluated and treated for you, you did very well. You may followup with your PCP in one week, and have PT/INR check and kidney function check. Should your symptoms return or worsen, you may present to ER or call 911 for help. - TIME SPENT Time Spent in Discharge (Minutes): 30
--- NOTE | 2021-02-02 15:02 | XRAY Report ---
PROCEDURE: Chest 1 View X-Ray INDICATIONS: SOB TECHNIQUE: One view of the chest was acquired. COMPARISON: 12/17/2020 FINDINGS: Surgical changes and devices: Midline sternal wires and right-sided dual-chamber pacemaker present. T here is a cardiac valve prosthesis and mitral clip Heart size is enlarged. Hyperinflation chronic interstitial change present. Mild right basilar atelec tasis and or infiltrate noted. Atherosclerotic calcification of the abdominal aorta without evidence of aneurysm. Transverse left clavicular fracture noted with inferior displacement of the distal fracture fragment. Generalized decreased osseous mineralization present. IMPRESSION: Right basilar atelectasis and or infiltrate. Osteopenia and left clavicular fracture, displaced Aortic atherosclerosis Reviewed by: Dale Moya MD on 02/02/2021 2:01 PM ABBY Approved by: Dale Moya MD on 02/02/2021 2:01 PM [facility]AU[facility] Station ID: [id number]
[2021-02-02 15:38] LABS: INR 1.1 (0.8-1.2); PT - PROTHROMBIN TIME 12.1 secs (9.9-12.6)
[2021-02-02 15:51] VITALS: BP 127/54
[2021-02-03] MEDS ORDERED: WARFARIN 1 MG TABLET PO SCH (14:00)
== END 2021-02-02 17:37 | disposition home or self-care (01) ==
LOC: ED 15:31 → MS2 20:44
PROVIDERS: ADMIT Internal Medicine; ATTEND Nurse Practitioner Gerontology
DX: R11.2 Nausea with vomiting, unspecified (principal); E86.0 Dehydration; I11.0 Hypertensive heart disease with heart failure; I50.30 Unspecified diastolic (congestive) heart failure; M48.54XA Collapsed vertebra, not elsewhere classified, thoracic region, initial encounter for fracture; M85.88 Other specified disorders of bone density and structure, other site; N28.9 Disorder of kidney and ureter, unspecified; I48.91 Unspecified atrial fibrillation; Z79.01 Long term (current) use of anticoagulants; Z95.2 Presence of prosthetic heart valve; E78.5 Hyperlipidemia, unspecified; I89.0 Lymphedema, not elsewhere classified; Z90.12 Acquired absence of left breast and nipple; Z85.3 Personal history of malignant neoplasm of breast; Z95.0 Presence of cardiac pacemaker; R64 Cachexia; Z68.1 Body mass index [BMI] 19.9 or less, adult; R79.1 Abnormal coagulation profile; Z66 Do not resuscitate
CPT/HCPCS: 36415; 71045; 71250; 74176; 80048; 80053; 80307; 81003; 82550; 83690; 83735; 83880; 85025; 85610; 87631; 96361; 96372; 96374; 96375; 97161; 97165; 99284; 99285; A9270; G0378; J1650; 0202U; 81001; 87086

== ENCOUNTER 2021-02-03 18:02 | Outpatient (CLI) | payer MEDICARE | END 2021-02-03 18:03 | disposition critical access hospital (66) | LOC: EMS 18:02 | DX: Z76.89 Persons encountering health services in other specified circumstances (principal) | CPT/HCPCS: A0425; A0429 ==

== ENCOUNTER 2021-02-03 18:18 | Emergency (ER) | payer MEDICARE ==
--- NOTE | 2021-02-03 18:25 | ED Physician Documentation ---
PD HPI DYSPNEA - Stated complaint Stated Complaint: SOA - History obtained from History obtained from: Patient, EMS - Additional information Additional information: 85-year-old woman with history of aortic valve replacement on warfarin was a dmitted to the hospital for dehydration. On discharge home she was not taking Lovenox as she was supposed to. She returns for an INR check. There is also a stated complaint of shortness of breath, but she says she is no more short of breath than when she left the hospital. 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: Breast cancer : None HEENT: None Psych: None Musculoskeletal: Osteoporosis Derm: None - Past Surgical History Past Surgical History: Yes General: Appendectomy /ALUMINUM HYDROXIDE PROCESS OPERATOR: Mastectomy (Left, radical) Cardiovascular: Valve replacement (mechanical aortic valve), Pacemaker - Present Medications Home Medications: Ambulatory Orders Medication Instructions Recorded Confirmed Atorvastatin [Lipitor] 10 mg PO DAILY 05/16/16 02/03/21 Cholecalciferol (Vitamin D3) 1 cap PO .MWF 05/16/16 02/03/21 [Vitamin D3] Spironolactone [Aldactone] 25 mg PO DAILY 07/22/20 02/03/21 Metoprolol Succinate [Toprol Xl] 100 mg PO BID 11/30/20 02/03/21 Potassium Chloride Oral Soln 20 meq PO DAILY 11/30/20 02/03/21 [Potassium Chloride] Warfarin [Coumadin] 4 mg PO DAILY 11/30/20 02/03/21 Furosemide [Lasix] 40 mg PO DAILY #30 tablet 12/01/20 02/03/21 Cefadroxil [Duricef] 500 mg PO BID 12/17/20 02/03/21 amLODIPine [Norvasc] 5 mg PO BID 12/17/20 02/03/21 Calcium Citrate 250 mg PO DAILY #30 tablet 02/02/21 02/03/21 Enoxaparin [Lovenox] 30 mg SUBQ BID 3 Days #6 vial 02/02/21 02/03/21 - Allergies Allergies/Adverse Reactions: Allergies Allergy/AdvReac Type Severity Reaction Status Date / Time codeine AdvReac Unknown Nausea Verified 02/03/21 18:26 - Social History Does the pt smoke?: No Smoking Status: Never smoker Does the pt drink ETOH?: Yes Does the pt have substance abuse?: No - Immunizations Immunizations are current?: Yes - POLST Patient has POLST: No POLST Status: DNR PD ED PE NORMAL - Vitals Vital signs reviewed: Yes - General General: Alert and oriented X 3, No acute distress - Neck Neck: Supple, no meningeal sign, No bony TTP - Cardiac Cardiac: RRR (Very loud aortic valve closing click, regular rate and rhythm) - Respiratory Respiratory: No respiratory distress, Clear bilaterally - Extremities Extremities: No edema, No calf tenderness / cord - Neuro Neuro: Alert and oriented X 3, Normal speech Results - Vitals Vitals: Vital Signs - 24 hr 02/03/21 18:24 Temperature 37.1 C Heart Rate 70 Respiratory 20 Rate Blood Pressure 111/63 O2 Saturation 100 Oxygen O2 Source Nasal cannula Oxygen Flow Rate 2 - Labs Labs: Laboratory Tests 02/03/21 02/03/21 18:36 18:36 PT 24.2 H INR 2.3 H Sodium 136 Potassium 4.1 Chloride 92 L Carbon Dioxide 35 H Anion Gap 9.0 BUN 25 H Creatinine 1.3 H Estimated GFR (MDRD) 39 L Glucose 148 H Calcium 9.5 PD MEDICAL DECISION MAKING - ED course ED course: 85-year-old woman presents for an INR check. She is short of breath but does not notice any worsening since leaving the hospital for CHF and MI[place] yesterday. She is borderline hypoxic year but does wear as needed oxygen at home. Her lungs are relatively clear. She appears euvolemic. Chemistry panel shows a contraction alkalosis and her creatinine has been trending down. Before leaving she noted that for months she has had some difficulty swallowing like something is getting stuck in her esophagus. That said she is eating and drinking okay and her phonation is normal. Physical examination of the pharynx was normal. Discussed with her that she should mention it to Dr. Garland to consider nonurgent upper endoscopy. Departure - Departure Disposition: 01 Home, Self Care Clinical Impression: Atrial fibrillation and flutter, Hx of aortic valve replacement, mechanical Condition: Good Record reviewed to determine appropriate education?: Yes Comments: Your INR is almost back up into range, tonight it was 2.3. I do not think there is need for further blood thinner injection. Follow-up with your doctor as recommended per the hospital discharge instructions from yesterday. Return for new or worsening symptoms.
[2021-02-03 18:47] LABS: INR 2.3 (0.8-1.2); PT - PROTHROMBIN TIME 24.2 secs (9.9-12.6)
[2021-02-03 18:52] LABS: CALCIUM 9.5 mg/dL (8.5-10.3); CREATININE 1.3 mg/dL (0.4-1.0); POTASSIUM 4.1 mmol/L (3.5-5.0)
[2021-02-03] MEDS ORDERED: METOPROLOL TARTRATE 25 MG TABLET ONE (19:06)
[2021-02-03] MEDS ORDERED: METOPROLOL SUCCINATE 25 MG TABLET PO ONE (19:06)
[2021-02-03 20:06] VITALS: BP 114/65
== END 2021-02-03 20:08 | disposition home or self-care (01) ==
LOC: EDUNIT# → ED 18:18 → SUPCPDRO 18:18 → ED 20:08
DX: I11.0 Hypertensive heart disease with heart failure (principal); I13.0 Hypertensive heart and chronic kidney disease with heart failure and stage 1 through stage 4 chronic kidney disease, or unspecified chronic kidney disease; N18.9 Chronic kidney disease, unspecified; I50.9 Heart failure, unspecified; I48.91 Unspecified atrial fibrillation; Z79.01 Long term (current) use of anticoagulants; Z66 Do not resuscitate; Z95.0 Presence of cardiac pacemaker
CPT/HCPCS: 36415; 80048; 85610; 99283

== ENCOUNTER 2021-02-03 20:12 | Outpatient (CLI) | payer MEDICARE | END 2021-02-03 20:13 | disposition home or self-care (01) | LOC: EMS 20:12 | DX: I50.9 Heart failure, unspecified (principal); Z99.81 Dependence on supplemental oxygen | CPT/HCPCS: A0425; A0428 ==

== ENCOUNTER 2021-02-16 12:29 | Outpatient (CLI) | payer MEDICARE ==
[2021-02-16 13:05] LABS: BASOPHILS % (AUTO) 0.4 %; EOSINOPHILS # (AUTO) 0.1 10^3/uL (0.0-0.7); EOSINOPHILS % (AUTO) 1.5 %; HCT - HEMATOCRIT 52.7 % (37.0-47.0); HGB - HEMOGLOBIN 17.1 g/dL (12.0-16.0); LYMPHOCYTES # (AUTO) 1.2 10^3/uL (1.5-3.5); LYMPHOCYTES % (AUTO) 16.8 %; MEAN CORPUSCULAR HEMOGLOBIN 28.5 pg (27.0-31.0); MEAN CORPUSCULAR HGB CONC 32.4 g/dL (32.0-36.0); MEAN CORPUSCULAR VOLUME 87.7 fL (81.0-99.0); MEAN PLATELET VOLUME 9.6 fL (7.9-10.8); MONOCYTES # (AUTO) 0.6 10^3/uL (0.0-1.0); MONOCYTES % (AUTO) 8.5 %; NEUTROPHILS # (AUTO) 5.3 10^3/uL (1.5-6.6); NEUTROPHILS % (AUTO) 72.5 %; PLT - PLATELET COUNT 224 10^3/uL (130-450); RED BLOOD COUNT 6.01 10^6/uL (4.20-5.40); WHITE BLOOD COUNT 7.3 x10^3/uL (4.8-10.8)
== END 2021-02-16 12:30 | disposition home or self-care (01) ==
LOC: LAB 12:29
PROVIDERS: ATTEND Internal Medicine
DX: I50.9 Heart failure, unspecified (principal); Z79.899 Other long term (current) drug therapy; R06.00 Dyspnea, unspecified; R63.4 Abnormal weight loss
CPT/HCPCS: 36415; 80053; 83880; 84443; 85025

== ENCOUNTER 2021-02-20 02:04 | Outpatient (CLI) | payer MEDICARE | END 2021-02-20 02:05 | disposition critical access hospital (66) | LOC: EMS 02:04 | DX: R11.10 Vomiting, unspecified (principal); R53.1 Weakness; R63.8 Other symptoms and signs concerning food and fluid intake | CPT/HCPCS: A0425; A0427 ==

== ENCOUNTER 2021-02-20 02:22 | Inpatient (IN) | payer MEDICARE ==
--- NOTE | 2021-02-20 02:43 | ED Physician Documentation ---
PD HPI ABD PAIN - Stated complaint Stated Complaint: VOMITING, NAUSEA, ABD PAIN - Chief complaint Chief Complaint: Abd Pain - History obtained from History obtained from: Patient, EMS - History of Present Illness Timing - onset: How many days ago (3-4) Timing - duration: Days Timing - details: Gradual onset, Still present Quality: Cramping, Aching Location: Epigastric, Periumbilical Radiation: No: Chest, Left flank, Right flank Improved by: No: Laying still, Vomiting Worsened by: Eating Associated symptoms: Nausea, Vomiting, Melena (the past day), Loss of appetite, Weight loss. No: Fever, Constipation Similar symptoms before: Has not had sx before Recently seen: Not recently seen Review of Systems Constitutional: denies: Fever, Chills Nose: denies: Rhinorrhea / runny nose, Congestion Throat: denies: Sore throat Respiratory: denies: Cough : denies: Dysuria, Frequency Skin: denies: Rash Neurologic: reports: Generalized weakness. 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 ) Derm: None - Past Surgical History Past Surgical History: Yes General: Appendectomy /GAS OPERATIONS ANALYST: Mastectomy Cardiovascular: Valve replacement, Pacemaker - Present Medications Home Medications: Ambulatory Orders Medication Instructions Recorded Confirmed Atorvastatin [Lipitor] 10 mg PO DAILY 05/16/16 02/03/21 Cholecalciferol (Vitamin D3) 1 cap PO .MWF 05/16/16 02/03/21 [Vitamin D3] Spironolactone [Aldactone] 25 mg PO DAILY 07/22/20 02/03/21 Metoprolol Succinate [Toprol Xl] 100 mg PO BID 11/30/20 02/03/21 Warfarin [Coumadin] 4 mg PO DAILY 11/30/20 02/03/21 Cefadroxil [Duricef] 500 mg PO BID 12/17/20 02/03/21 amLODIPine [Norvasc] 5 mg PO BID 12/17/20 02/03/21 Calcium Citrate 250 mg PO DAILY #30 tablet 02/02/21 02/03/21 - Allergies Allergies/Adverse Reactions: Allergies Allergy/AdvReac Type Severity Reaction Status Date / Time codeine AdvReac Unknown Nausea Verified 02/20/21 02:39 - Social History Does the pt smoke?: No Smoking Status: Never smoker Does the pt drink ETOH?: Yes Does the pt have substance abuse?: No - Immunizations Immunizations are current?: Yes - POLST Patient has POLST: No POLST Status: DNR PD ED PE NORMAL - Vitals Vital signs reviewed: Yes - General General: Alert and oriented X 3, Other (appears nauseated. ). No: Well developed/nourished (very frail and thin. ) - HEENT HEENT: Pharynx benign. No: Moist mucous membranes - Neck Neck: Supple, no meningeal sign, No adenopathy - Cardiac Cardiac: RRR (with mechanical valve sounds. ), Strong equal pulses - Respiratory Respiratory: No respiratory distress, Clear bilaterally, Other (no chestwall tenderness) - Abdomen Abdomen: Soft, Non distended, No organomegaly, Other (Tender upper abd with some guarding. Also tender lower abd/suprapubic area with mild guarding. No percussion nor rebound tenderness. ) - Female Female : Deferred - Rectal Rectal: Deferred - Back Back: No CVA TTP - Derm Derm: Normal color, Warm and dry - Extremities Extremities: No tenderness to palpate, No edema, No calf tenderness / cord - Neuro Neuro: Alert and oriented X 3, No motor deficit, Normal speech Eye Opening: Spontaneous Motor: Obeys Commands Verbal: Oriented GCS Score: 15 Results - Vitals Vitals: Vital Signs - 24 hr 02/20/21 02/20/21 02/20/21 02:30 03:30 05:30 Temperature 36.4 C L 36.2 C L Heart Rate 70 67 62 Respiratory 18 17 17 Rate Blood Pressure 134/64 H 121/66 126/66 O2 Saturation 96 91 L 90 L Oxygen O2 Source Room air - Labs Labs: Laboratory Tests 02/20/21 02/20/21 02/20/21 02:50 02:50 02:50 WBC 6.6 RBC 5.29 Hgb 15.0 Hct 47.6 H MCV 90.0 MCH 28.4 MCHC 31.5 L RDW 17.4 H Plt Count 185 MPV 9.9 Neut # (Auto) 4.8 Lymph # (Auto) 0.9 L Dougherty # (Auto) 0.6 Eos # (Auto) 0.2 Baso # (Auto) 0.1 Absolute Nucleated RBC 0.00 Nucleated RBC % 0.0 Sodium 139 Potassium 3.7 Chloride 100 L Carbon Dioxide 27 Anion Gap 12.0 BUN 27 H Creatinine 1.1 H Estimated GFR (MDRD) 47 L Glucose 101 H Calcium 8.7 Magnesium 2.0 Total Bilirubin 1.6 H AST 43 H ALT 26 Alkaline Phosphatase 165 H Total Protein 6.5 L Albumin 3.1 L Globulin 3.4 Albumin/Globulin Ratio 0.9 L Lipase 22 - Rads (name of study) abd/pelvic CT Radiology: Prelim report reviewed (sigmoid diverticulitis.), See rad report PD MEDICAL DECISION MAKING - ED course Complexity details: reviewed results (sigmoid diverticulitis. ), considered differential (seems like gastritis with nausea and vomiting and dehydration/weakness. Frail at baseline. Lower abd pain as well. ), d/w patient ED course: Nausea and vomiting with attempted oral intake for the last 4 days or so. Some upper abdominal pain and discomfort associated with oral intake as well. She is having some crampy mid to lower abdominal pain as well. She states she had some loose stool just yesterday that appeared dark. She denied hematemesis. She is feeling generally weak and states she has lost a few pounds of weight in the last 4 days. Presumed diagnosis of: 1. gastritis with nausea and vomiting 2. Dehydration 3. Sigmoid diverticulitis Departure - Departure Disposition: 66 [facility] DC/Xfer Condition: Stable
[2021-02-20 02:59] LABS: BASOPHILS # (AUTO) 0.1 10^3/uL (0.0-0.1); BASOPHILS % (AUTO) 0.8 %; EOSINOPHILS # (AUTO) 0.2 10^3/uL (0.0-0.7); EOSINOPHILS % (AUTO) 3.6 %; HCT - HEMATOCRIT 47.6 % (37.0-47.0); LYMPHOCYTES # (AUTO) 0.9 10^3/uL (1.5-3.5); MEAN CORPUSCULAR HEMOGLOBIN 28.4 pg (27.0-31.0); MEAN CORPUSCULAR HGB CONC 31.5 g/dL (32.0-36.0); MEAN PLATELET VOLUME 9.9 fL (7.9-10.8); MONOCYTES # (AUTO) 0.6 10^3/uL (0.0-1.0); MONOCYTES % (AUTO) 9.7 %; NEUTROPHILS # (AUTO) 4.8 10^3/uL (1.5-6.6); NEUTROPHILS % (AUTO) 71.6 %; PLT - PLATELET COUNT 185 10^3/uL (130-450); RED BLOOD COUNT 5.29 10^6/uL (4.20-5.40); RED CELL DISTRIBUTION WIDTH 17.4 % (12.0-15.0); WHITE BLOOD COUNT 6.6 x10^3/uL (4.8-10.8)
[2021-02-20] MEDS ORDERED: SODIUM CHLORIDE 0.9% 500 ML IV STA (03:09)
[2021-02-20] MEDS ORDERED: ONDANSETRON 4 MG/2 ML VIAL IVP STA (03:09)
[2021-02-20 03:10] LABS: ALBUMIN 3.1 g/dL (3.2-5.5); ALBUMIN/GLOBULIN RATIO 0.9 (1.0-2.2); BILIRUBIN,TOTAL 1.6 mg/dL (0.2-1.0); CALCIUM 8.7 mg/dL (8.5-10.3); CREATININE 1.1 mg/dL (0.4-1.0); POTASSIUM 3.7 mmol/L (3.5-5.0); TOTAL PROTEIN 6.5 g/dL (6.7-8.2)
[2021-02-20] MEDS ORDERED: FAMOTIDINE 20 MG/2 ML VIAL IVP STA (03:10)
[2021-02-20] MEDS ORDERED: IOVERSOL 320 100 ML VIAL IVP ONE ×2 (03:33→04:33)
[2021-02-20] MEDS ORDERED: SODIUM CHLORIDE 0.9% 1,000 ML IV STA (05:30)
[2021-02-20] MEDS ORDERED: cefTRIAXone 1 GM VIAL IVP STA (05:30)
[2021-02-20] MEDS ORDERED: PROCHLORPERAZINE 10 MG/2 ML VIAL IVP PRN (06:06)
[2021-02-20] MEDS ORDERED: SODIUM CHLORIDE FLUSH 0.9% 10 ML SYRINGE IVP PRN (06:06)
[2021-02-20] MEDS ORDERED: ONDANSETRON 4 MG/2 ML VIAL IVP PRN (06:06)
[2021-02-20 06:54] LABS: INR 3.4 (0.8-1.2); PT - PROTHROMBIN TIME 35.3 secs (9.9-12.6)
[2021-02-20 07:00] LABS: B. PARAPERTUSSIS- RESP PCR PAN NOT DETECTED; B. PERTUSSIS- RESP PCR PANEL NOT DETECTED; C. PNEUMONIAE- RESP PCR PANEL NOT DETECTED; CORONAVIRUS 229E-RESP PCR NOT DETECTED; CORONAVIRUS HKU1-RESP PCR NOT DETECTED; CORONAVIRUS NL63-RESP PCR NOT DETECTED; CORONAVIRUS OC43-RESP PCR NOT DETECTED; HUMAN METAPNEUMOVIRUS NOT DETECTED; INFLUENZA A- RESP PCR PANEL NOT DETECTED; INFLUENZA B - RESP PCR PANEL NOT DETECTED; M. PNEUMONIAE- RESP PCR PANEL NOT DETECTED; PARAINFLUENZA VIRUS 1 NOT DETECTED; PARAINFLUENZA VIRUS 2 NOT DETECTED; PARAINFLUENZA VIRUS 3 NOT DETECTED; PARAINFLUENZA VIRUS 4 NOT DETECTED; RHINOVIRUS/ENTEROVIRUS NOT DETECTED; RSV- RESP PCR PANEL NOT DETECTED; SARS-CoV-2 -RESP PCR PANEL NOT DETECTED
[2021-02-20] MEDS ORDERED: SODIUM CHLORIDE 0.9% 500 ML IV ONE (07:02)
[2021-02-20] MEDS: metroNIDAZOLE 500 MG/100 ML 500 MG/100 ML BAG IV SCH ×3 (07:13→22:54)
[2021-02-20] MEDS: PANTOPRAZOLE 40 MG VIAL IV SCH ×2 (08:28→21:51)
[2021-02-20] MEDS: CIPROFLOXACIN 200 MG/100 ML 200 MG/100 ML BAG IV SCH ×2 (08:28→20:06)
[2021-02-20] MEDS: SODIUM CHLORIDE FLUSH 0.9% 10 ML SYRINGE IVP SCH ×2 (09:12→17:21)
--- NOTE | 2021-02-20 09:49 | CT Report ---
PROCEDURE: Abdomen/Pelvis W INDICATIONS: upper abd pain/ vomiting 4 days CONTRAST: IV CONTRAST: Optiray 320 ml: 80 PO CONTRAST: *NO PO CONTRAST TECHNIQUE: After the administration of intravenous contrast, 5 mm thick sections acquired from the diaphragms to the symphysis. 5 mm thick coronal and sagittal reformats were acquired. For radiation dose reducti on, the following was used: automated exposure control, adjustment of mA and/or kV according to david ent size. COMPARISON: 02/01/2021 FINDINGS: Image quality: Excellent. ABDOMEN: Lung bases: Lung bases are clear. 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 Solid organs: Liver and spleen are normal in size and enhancement. Gallbladder is unremarkable Sy iary system is non dilated. Pancreas enhances normally. No adrenal nodules. Kidneys demonstrate no rmal size and enhancement, without hydronephrosis. Peritoneum and bowel: Extensive sigmoid diverticulosis with possible mild acute diverticulitis. No fr ee air or abscess cavity. Nodes and vessels: No retroperitoneal or mesenteric adenopathy by size criteria. Aorta and inferior vena cava are normal in size. Miscellaneous: No ventral hernias. PELVIS: Genitourinary: Bladder wall thickness is normal. Miscellaneous: No inguinal hernias or adenopathy. Bones: No suspicious bony lesions. Old L2 compression fracture. Canal stenosis at L4-L5. IMPRESSION: 1. Extensive sigmoid diverticulosis with possible mild sigmoid diverticulitis. 2. Old L2 compression fracture, canal stenosis at L4-L5. 3. Cardiomegaly, aortic valve replacement. Findings are concordant with the preliminary report provided at the time of the study by [email or web address]. Reviewed by: Sourav Vazquez MD on 02/20/2021 8:47 AM ABBY Approved by: Sourav Vazquez MD on 02/20/2021 8:47 AM ABBY Station ID: [id number]
[2021-02-20] MEDS: DEXTROSE 5%-0.9% NACL 1,000 ML IV SCH ×2 (10:09→21:55)
[2021-02-20 14:23] LABS: BILIRUBIN,URINE NEGATIVE (NEGATIVE); GLUCOSE, URINE (UA) NEGATIVE (NEGATIVE); KETONES,URINE (UA) NEGATIVE (NEGATIVE); LEUKOCYTE ESTERASE, URINE NEGATIVE (NEGATIVE); NITRITE,URINE NEGATIVE (NEGATIVE); OCCULT BLOOD,URINE NEGATIVE (NEGATIVE); PROTEIN,URINE NEGATIVE (NEGATIVE); UROBILINOGEN,URINE 0.2 (NORMAL) E.U./dL (NORMAL)
[2021-02-20 14:24] LABS: CLARITY,URINE CLEAR (CLEAR)
--- NOTE | 2021-02-20 19:59 | HISTORY & PHYSICAL EXAMINATION ---
Chief Complaint - Chief Complaint Chief Complaint: nausea, vomiting, weakness History of Present Illness - Admitted From Admitted From:: [facility] ED - History Obtained From Records Reviewed: yes History obtained from: patient - History of Present Illness HPI Comment/Other: Patient is an 85-year-old female with medical history significant for CHF, hyperlipidemia, atrial fibrillation, hypertension, history of breast cancer status post radical mastectomy, chronic left upper extremity lymphedema secondary to mastectomy, pacemaker placement, history of mechanical aortic valve who presented to the ED with complaint of nausea and vomiting for the past 3 days. She has been unable to keep anything down. She had significantly dry oral mucosa and is very weak. She is frail/cachectic appearing. She denied fever or chills. She has been having loose stools daily but no diarrhea She was admitted to the hospital 19 days prior for the same presentation. At the time she was treated for dehydration and discharged home after an overnight observation. During this presentation she had a CT of the abdomen pelvis done which raised the possibility of diverticulitis. As a result she was admitted and started on Cipro and Flagyl. Assessment and Plan: 1. Mild Diverticulitis: Patient was started on Cipro and Flagyl She was made NPO. IV hydration wii normal saline 2. Nausea and vomiting: Zofran prn for nausea 3. Congestive Heart Failure: We will hold Lasix and spironolactone for now. We will continue patient's metoprolol. 4. History of aortic valve replacement, mechanical: Patient is on Coumadin 4 mg p.o. daily. INR was 3.4. We will recheck INR daily 5. History of atrial fibrillation: On Metoprolol. On Coumadin 4 mg p.o. daily. INR was 3.4. We will recheck INR daily 6. Hyperlipidemia Atorvastatin 10mg po daily 7. Lymphedema: Affecting left upper extremity. This was due to radical mastectomy for breast cancer. Patient has a compressive sleeve she normally wears. History - Past Medical History Cardiovascular: reports: Congestive heart failure, Hypertension, High cholesterol, Atrial fibrillation Respiratory: reports: Other Neuro: reports: Peripheral neuropathy Endocrine/Autoimmune: reports: None GI: reports: None DIRECTOR OF PHYSIOTHERAPY SERVICES: reports: Breast cancer : reports: None HEENT: reports: None Psych: reports: None Musculoskeletal: reports: Osteoporosis, Other (lower thoracic back pain due to compression fracture in recent past. ) Derm: reports: None MRSA Hx?: No - Past Surgical History General: reports: Appendectomy /DIRECTOR OF PHYSIOTHERAPY SERVICES: reports: Mastectomy Cardiovascular: reports: Valve replacement, Pacemaker - Family & Social History Family History Comment/Other: Her mother from breast cancer at age 64. Father had CVA. Social History Notes: She does not use tobacco products or recreational substances. She consumes alcohol occasionally. She lives alone but her former [id number] lives in the apartment upstairs. She is independent of activities of daily living. - POLST Patient has POLST: No POLST Status: DNR Meds/Allgy - Home Medications Home Medications: Ambulatory Orders Medication Instructions Recorded Confirmed Atorvastatin [Lipitor] 10 mg PO DAILY 05/16/16 02/03/21 Cholecalciferol (Vitamin D3) 1 cap PO .MWF 05/16/16 02/03/21 [Vitamin D3] Spironolactone [Aldactone] 25 mg PO DAILY 07/22/20 02/03/21 Metoprolol Succinate [Toprol Xl] 100 mg PO BID 11/30/20 02/03/21 Warfarin [Coumadin] 4 mg PO DAILY 11/30/20 02/03/21 Cefadroxil [Duricef] 500 mg PO BID 12/17/20 02/03/21 amLODIPine [Norvasc] 5 mg PO BID 12/17/20 02/03/21 Calcium Citrate 250 mg PO DAILY #30 tablet 02/02/21 02/03/21 - Allergies Allergies/Adverse Reactions: Allergies Allergy/AdvReac Type Severity Reaction Status Date / Time codeine AdvReac Unknown Nausea Verified 02/20/21 02:39 Review of Systems - Constitutional Constitutional: reports: Fatigue, Weakness, Poor appetite, Weight loss, Other (Frail/ Cachexic). denies: Fever, Chills - Eyes Eyes: denies: Pain, Vision loss, Dipolpia - Ears, Nose & Throat Ears, Nose & Throat: denies: Ear pain, Sore throat - Cardiovascular Cariovascular: reports: Irregular heart rate, Edema. denies: Chest pain - Respiratory Respiratory: denies: Cough, Sputum production, Wheezing, SOB at rest, SOB with exertion - Gastrointestinal Gastrointestinal: reports: Nausea, Vomiting. denies: Abdominal pain, Diarrhea, Bloody stools, Coffee grounds emesis, Reflux/heartburn - Genitourinary Genitourinary: denies: Dysuria, Frequency, Urgency, Hematuria - Musculoskeletal Musculoskeletal: denies: Muscle pain, Muscle aches - Integumentary Integumentary: denies: Rash, Pruritis, Lesions, Dryness - Neurological Neurological: reports: General weakness. denies: Focal weakness, Headache - Psychiatric Psychiatric: reports: Depression. denies: Anxiety, Suicidal - Endocrine Endocrine: denies: Polyuria, Polydypsia - Hematologic/Lymphatic Hematologic/Lymphatic: reports: Bruising. denies: Petechiae Prior Level of Functionality: Very weak/frail. She lives alone but her [id number] lives downstairs. She reports that he helps her with cooking and cleaning the house. She reports being able to do personal cares. She reports ambulating using a walker. However patient's clinical presentation raises concern that she is not able to adequately do things for herself. Exam - Vital Signs Vital Signs: Vital Signs x48h Temp Pulse Resp BP Pulse Ox 02/20/21 15:47 36.3 C L 71 18 122/62 96 02/20/21 12:25 36.3 C L 74 16 120/60 97 - Physical Exam General Appearance: positive: No acute distress, Alert, Other (frail cachexic) Eyes Bilateral: positive: PERRL, EOMI ENT: positive: Dry mucous membranes Neck: positive: No JVD, Trachea midline Respiratory: positive: Chest non-tender, No respiratory distress, Breath sounds nml. negative: Wheezes, Rales, Rhonchi Cardiovascular: positive: Irregularly irregular, Other (loud clicking sound due to mechanical valve) Abdomen: positive: Non-tender, No organomegaly, Nml bowel sounds, No distention. negative: Guarding, Rebound Back: positive: Nml inspection Skin: positive: No rash, Warm, Dry, Pallor Extremities: positive: Non-tender, Other (chronic lymphedema in left upper extremity) Neurologic/Psychiatric: positive: Oriented x3, Depressed mood/affect Conclusion/Plan - Lab Results Fish Bones: 02/21/21 07:46 02/21/21 07:46 Core Measures - Anticipated LOS I expect patient to be DC'd or transferred within 96 hours.: Yes - DVT/VTE - Prophylaxis VTE/DVT Device ordered at admit?: Yes VTE/DVT Prophylaxis med ordered at admit?: Yes
[2021-02-21] MEDS: SODIUM CHLORIDE FLUSH 0.9% 10 ML SYRINGE IVP SCH ×3 (02:13→15:58)
[2021-02-21] MEDS: ACETAMINOPHEN 325 MG TABLET PO PRN ×2 (03:19→15:51)
[2021-02-21] MEDS: metroNIDAZOLE 500 MG/100 ML 500 MG/100 ML BAG IV SCH ×3 (07:09→22:55)
[2021-02-21 08:04] LABS: PT - PROTHROMBIN TIME 50.2 secs (9.9-12.6)
[2021-02-21 08:06] LABS: BASOPHILS % (AUTO) 0.5 %; EOSINOPHILS # (AUTO) 0.2 10^3/uL (0.0-0.7); EOSINOPHILS % (AUTO) 3.6 %; HCT - HEMATOCRIT 49.2 % (37.0-47.0); HGB - HEMOGLOBIN 15.4 g/dL (12.0-16.0); LYMPHOCYTES # (AUTO) 0.7 10^3/uL (1.5-3.5); LYMPHOCYTES % (AUTO) 11.2 %; MEAN CORPUSCULAR HEMOGLOBIN 28.5 pg (27.0-31.0); MEAN CORPUSCULAR HGB CONC 31.3 g/dL (32.0-36.0); MEAN CORPUSCULAR VOLUME 91.1 fL (81.0-99.0); MEAN PLATELET VOLUME 9.3 fL (7.9-10.8); MONOCYTES # (AUTO) 0.5 10^3/uL (0.0-1.0); MONOCYTES % (AUTO) 8.3 %; NEUTROPHILS # (AUTO) 4.5 10^3/uL (1.5-6.6); NEUTROPHILS % (AUTO) 76.1 %; PLT - PLATELET COUNT 175 10^3/uL (130-450); RED CELL DISTRIBUTION WIDTH 17.3 % (12.0-15.0); WHITE BLOOD COUNT 5.9 x10^3/uL (4.8-10.8)
[2021-02-21 08:09] LABS: CALCIUM 8.7 mg/dL (8.5-10.3); POTASSIUM 3.4 mmol/L (3.5-5.0)
--- NOTE | 2021-02-21 08:46 | PROVIDER PROGRESS NOTE ---
Assessment/Plan - Current Meds Current Meds: Current Medications Generic Name Dose Route Start Last Admin Trade Name Moin PRN Reason Stop Dose Admin Acetaminophen 650 mg 02/20/21 06:06 02/21/21 03:19 Acetaminophen 325 Mg Tablet PO 650 mg Q4HR PRN Administration Pain or Fever > 38C (100.4F) Ciprofloxacin 200 mg in 100 mls @ 100 mls/hr 02/20/21 08:00 02/20/21 21:53 Cipro 200 Mg/100 Ml IV Infused Q12H [facility] Metronidazole 500 mg in 100 mls @ 100 mls/hr 02/20/21 07:00 02/21/21 07:09 Flagyl 500 Mg/100 Ml IV 100 mls/hr Q8H [facility] Administration Dextrose/Sodium Chloride 1,000 mls @ 100 mls/hr 02/20/21 10:00 02/21/21 07:09 D5ns IV 0 mls/hr .Q10H [facility] Pantoprazole Sodium 40 mg 02/20/21 09:00 02/20/21 21:51 Pantoprazole 40 Mg Vial IV 40 mg BID [facility] Administration Sodium Chloride 10 ml 02/20/21 09:00 02/21/21 02:13 Sodium Chloride Flush 0.9% 10 Ml Syringe IVP Not Given 0100,0900,1700 [facility] - Lab Result Fish Bone Diagrams: 02/21/21 07:46 02/21/21 07:46 - Additional Planning My Orders: My Active Orders 02/20/21 10:00 Dextrose 5%-0.9% NaCl [D5ns] 1,000 ml IV 100 mls/hr 02/21/21 Breakfast Full Liquid Diet [DIET] 02/22/21 05:00 BMP - BASIC METABOLIC PANEL [CHEM] DAILYLAB CBC - COMP BLD CT W/AUTO DIFF [HEME] DAILYLAB PT WITH INR [COAG] DAILYLAB 02/23/21 05:00 BMP - BASIC METABOLIC PANEL [CHEM] DAILYLAB CBC - COMP BLD CT W/AUTO DIFF [HEME] DAILYLAB PT WITH INR [COAG] DAILYLAB 02/24/21 05:00 BMP - BASIC METABOLIC PANEL [CHEM] DAILYLAB CBC - COMP BLD CT W/AUTO DIFF [HEME] DAILYLAB PT WITH INR [COAG] DAILYLAB 02/25/21 05:00 BMP - BASIC METABOLIC PANEL [CHEM] DAILYLAB CBC - COMP BLD CT W/AUTO DIFF [HEME] DAILYLAB PT WITH INR [COAG] DAILYLAB 02/26/21 05:00 BMP - BASIC METABOLIC PANEL [CHEM] DAILYLAB CBC - COMP BLD CT W/AUTO DIFF [HEME] DAILYLAB PT WITH INR [COAG] DAILYLAB Additional Planning Notes: Assessment and Plan: 1. Mild Diverticulitis: Patient was started on Cipro and Flagyl She was made NPO. IV hydration wii normal saline 2. Supratherapeutic INR INR was 5.0 Likely due to Cipro Will hold coumadin and check INR daily 3. Nausea and vomiting: Zofran prn for nausea 4. Congestive Heart Failure: We will hold Lasix and spironolactone for now. We will continue patient's metoprolol. 5. History of aortic valve replacement, mechanical: Patient is on Coumadin 4 mg p.o. daily. INR was 35.0. We will recheck INR daily 6. History of atrial fibrillation: On Metoprolol. On Coumadin 4 mg p.o. daily. INR was 5.0. We will recheck INR daily 7. Hyperlipidemia Atorvastatin 10mg po daily 8. Lymphedema: Affecting left upper extremity. This was due to radical mastectomy for breast cancer. Patient has a compressive sleeve she normally wears. This is the patient's third admission in 3 months. She has also been to the emergency department multiple times in between these admissions. She is very weak and mostly bedbound due to her multiple medical comorbidities. Social work had a conversation with the patient about considering prison facility. The patient declined because she felt she would not have her privacy. She is also working on having her neighbor be at home healthcare [facility] Subjective - Subjective Patient Reports: Other (Patient was resting comfortably in bed at time of visit. She denied any complaints. She reports sleeping well.) Objective Vital Signs: Vital Signs - 24 hr 02/20/21 02/20/21 02/20/21 12:25 15:47 21:00 Temperature 36.3 C L 36.3 C L 36.3 C L Heart Rate [ 74 71 70 Brachial] Respiratory 16 18 18 Rate Blood Pressure 120/60 122/62 112/59 L [Right Brachial artery] O2 Saturation 97 96 94 02/21/21 02/21/21 02/21/21 01:00 02:18 05:00 Temperature 34.8 C L 34.7 C L Heart Rate [ 70 70 Brachial] Respiratory 16 16 Rate Blood Pressure 105/50 L 118/54 L [Right Brachial artery] O2 Saturation 90 L 94 97 02/21/21 08:21 Temperature 36.3 C L Heart Rate [ 70 Brachial] Respiratory 16 Rate Blood Pressure 109/54 L [Right Brachial artery] O2 Saturation 95 Oxygen O2 Source Nasal cannula Oxygen Flow Rate 2 I&O (Last 24 Hrs): Intake and Output Totals x24h 02/19/21 02/20/21 02/21/21 23:59 23:59 23:59 Intake Total 2900.000 1023.333 Output Total 450 Balance 2450.000 1023.333 Comments/Notes: General Appearance: positive: No acute distress, Alert, Other (frail cachexic) Eyes Bilateral: positive: PERRL, EOMI ENT: positive: Dry mucous membranes Neck: positive: No JVD, Trachea midline Respiratory: positive: Chest non-tender, No respiratory distress, Breath sounds nml. negative: Wheezes, Rales, Rhonchi Cardiovascular: positive: Irregularly irregular, Other (loud clicking sound due to mechanical valve) Abdomen: positive: Non-tender, No organomegaly, Nml bowel sounds, No distention. negative: Guarding, Rebound Back: positive: Nml inspection Skin: positive: No rash, Warm, Dry, Pallor Extremities: positive: Non-tender, Other (chronic lymphedema in left upper extremity) Neurologic/Psychiatric: positive: Oriented x3, Depressed mood/affect - Results Results: Laboratory Results WBC 5.9 x10^3/uL (4.8-10.8) 02/21/21 07:46 RBC 5.40 10^6/uL (4.20-5.40) 02/21/21 07:46 Hgb 15.4 g/dL (12.0-16.0) 02/21/21 07:46 Hct 49.2 % (37.0-47.0) H 02/21/21 07:46 MCV 91.1 fL (81.0-99.0) 02/21/21 07:46 MCH 28.5 pg (27.0-31.0) 02/21/21 07:46 MCHC 31.3 g/dL (32.0-36.0) L 02/21/21 07:46 RDW 17.3 % (12.0-15.0) H 02/21/21 07:46 Plt Count 175 10^3/uL (130-450) 02/21/21 07:46 MPV 9.3 fL (7.9-10.8) 02/21/21 07:46 Neut # (Auto) 4.5 10^3/uL (1.5-6.6) 02/21/21 07:46 Lymph # (Auto) 0.7 10^3/uL (1.5-3.5) L 02/21/21 07:46 [place] # (Auto) 0.5 10^3/uL (0.0-1.0) 02/21/21 07:46 Eos # (Auto) 0.2 10^3/uL (0.0-0.7) 02/21/21 07:46 Baso # (Auto) 0.0 10^3/uL (0.0-0.1) 02/21/21 07:46 Absolute Nucleated RBC 0.00 x10^3/uL 02/21/21 07:46 Nucleated RBC % 0.0 /100WBC 02/21/21 07:46 PT 50.2 secs (9.9-12.6) H 02/21/21 07:46 INR 5.0 (0.8-1.2) H* 02/21/21 07:46 Sodium 138 mmol/L (135-145) 02/21/21 07:46 Potassium 3.4 mmol/L (3.5-5.0) L 02/21/21 07:46 Chloride 104 mmol/L (101-111) 02/21/21 07:46 Carbon Dioxide 28 mmol/L (21-32) 02/21/21 07:46 Anion Gap 6.0 (6-13) 02/21/21 07:46 BUN 15 mg/dL (6-20) 02/21/21 07:46 Creatinine 1.0 mg/dL (0.4-1.0) 02/21/21 07:46 Estimated GFR (MDRD) 53 (>89) L 02/21/21 07:46 Glucose 159 mg/dL (70-100) H 02/21/21 07:46 Calcium 8.7 mg/dL (8.5-10.3) 02/21/21 07:46 Magnesium 2.0 mg/dL (1.7-2.8) 02/20/21 02:50 Total Bilirubin 1.6 mg/dL (0.2-1.0) H 02/20/21 02:50 AST 43 IU/L (10-42) H 02/20/21 02:50 ALT 26 IU/L (10-60) 02/20/21 02:50 Alkaline Phosphatase 165 IU/L (42-121) H 02/20/21 02:50 Total Protein 6.5 g/dL (6.7-8.2) L 02/20/21 02:50 Albumin 3.1 g/dL (3.2-5.5) L 02/20/21 02:50 Globulin 3.4 g/dL (2.1-4.2) 02/20/21 02:50 Albumin/Globulin Ratio 0.9 (1.0-2.2) L 02/20/21 02:50 Lipase 22 U/L (22-51) 02/20/21 02:50 Urine Color YELLOW 02/20/21 13:25 Urine Clarity CLEAR (CLEAR) 02/20/21 13:25 Urine pH 5.0 PH (5.0-7.5) 02/20/21 13:25 Ur Specific [place] 1.010 (1.002-1.030) 02/20/21 13:25 Urine Protein NEGATIVE mg/dL (NEGATIVE) 02/20/21 13:25 Urine Glucose (UA) NEGATIVE mg/dL (NEGATIVE) 02/20/21 13:25 Urine Ketones NEGATIVE mg/dL (NEGATIVE) 02/20/21 13:25 Urine Occult Blood NEGATIVE (NEGATIVE) 02/20/21 13:25 Urine Nitrite NEGATIVE (NEGATIVE) 02/20/21 13:25 Urine Bilirubin NEGATIVE (NEGATIVE) 02/20/21 13:25 Urine Urobilinogen 0.2 (NORMAL) E.U./dL (NORMAL) 02/20/21 13:25 Ur Leukocyte Esterase NEGATIVE (NEGATIVE) 02/20/21 13:25 Ur Microscopic Review NOT INDICATED 02/20/21 13:25 Urine Culture Comments NOT INDICATED 02/20/21 13:25 Nasal Adenovirus (PCR) NOT DETECTED 02/20/21 05:55 Nasal B. parapertussis DNA (PCR) NOT DETECTED 02/20/21 05:55 Nasal Coronavir 229E PCR NOT DETECTED 02/20/21 05:55 Nasal Coronavir HKU1 PCR NOT DETECTED 02/20/21 05:55 Nasal Coronavir NL63 PCR NOT DETECTED 02/20/21 05:55 Nasal Coronavir OC43 PCR NOT DETECTED 02/20/21 05:55 Nasal Enterovir/Rhinovir PCR NOT DETECTED 02/20/21 05:55 Nasal Influenza B PCR NOT DETECTED 02/20/21 05:55 Nasal Influenza A PCR NOT DETECTED 02/20/21 05:55 Nasal Parainfluen 1 PCR NOT DETECTED 02/20/21 05:55 Nasal Parainfluen 2 PCR NOT DETECTED 02/20/21 05:55 Nasal Parainfluen 3 PCR NOT DETECTED 02/20/21 05:55 Nasal Parainfluen 4 PCR NOT DETECTED 02/20/21 05:55 Nasal RSV (PCR) NOT DETECTED 02/20/21 05:55 Nasal B.pertussis DNA PCR NOT DETECTED 02/20/21 05:55 Nasal C.pneumoniae (PCR) NOT DETECTED 02/20/21 05:55 Dimitris Human Metapneumo PCR NOT DETECTED 02/20/21 05:55 Nasal M.pneumoniae (PCR) NOT DETECTED 02/20/21 05:55 Nasal SARS-CoV-2 (PCR) NOT DETECTED 02/20/21 05:55 - Procedures Procedures: Procedures CATARAC PHACOEMULS/ASPIR (09/11/13) INSERT LENS AT CATAR EXT (09/11/13) ABX Reporting Has patient been on IV antibiotics over the past 48 hours?: Yes
[2021-02-21] MEDS: PANTOPRAZOLE 40 MG VIAL IV SCH ×2 (09:07→21:25)
[2021-02-21] MEDS: CIPROFLOXACIN 200 MG/100 ML 200 MG/100 ML BAG IV SCH ×2 (09:07→21:26)
[2021-02-21] MEDS: DEXTROSE 5%-0.9% NACL 1,000 ML IV SCH (11:39)
--- NOTE | 2021-02-21 16:35 | PHARMACY PROGRESS NOTE ---
- Best Possible Medication History Admit Date and Time: 02/20/21 0603 Processed by: Pharmacy Medication History completed: Yes Patient Interview: Pt unable to participate Secondary Source(s): Pharmacy records, Insurance records As the person ultimately responsible for medication therapy, providers are able to order a medication from an existing home medication list in [facility] via the "Reconcile Routine" prior to Confirmation of that medication by client support coordinator. Such practice is discouraged except when the physician, in their clinical judgment, deems that a medical need exists for a medication without regard to previous use.
--- NOTE | 2021-02-21 21:09 | ED Physician Documentation ---
ED Addendum - Addendum Addendum: 02/21/21 21:09 Dr. Callejas asked me to place an IV in this patient. Multiple nurses had tried and failed. The right cephalic area was prepped with ChloraPrep and then using real-time ultrasound guidance a long 22-gauge IV was inserted. It flushed and alhaji well. It could not advance to the hub, potentially because of a valve, that said it seemed to work fine.
[2021-02-21] MEDS: LIDOCAINE PATCH 5% TOP PRN (21:25)
[2021-02-21] MEDS ORDERED: SODIUM CHLORIDE 0.9% 250 ML IV PRN (22:27)
[2021-02-22] MEDS: SODIUM CHLORIDE FLUSH 0.9% 10 ML SYRINGE IVP SCH ×4 (00:06→23:36)
[2021-02-22] MEDS: DEXTROSE 5%-0.9% NACL 1,000 ML IV SCH ×2 (05:14→08:28)
[2021-02-22 05:37] LABS: BASOPHILS % (AUTO) 0.3 %; EOSINOPHILS # (AUTO) 0.3 10^3/uL (0.0-0.7); EOSINOPHILS % (AUTO) 4.7 %; HCT - HEMATOCRIT 45.3 % (37.0-47.0); HGB - HEMOGLOBIN 14.3 g/dL (12.0-16.0); LYMPHOCYTES % (AUTO) 15.2 %; MEAN CORPUSCULAR HEMOGLOBIN 28.3 pg (27.0-31.0); MEAN CORPUSCULAR HGB CONC 31.6 g/dL (32.0-36.0); MEAN CORPUSCULAR VOLUME 89.7 fL (81.0-99.0); MEAN PLATELET VOLUME 9.2 fL (7.9-10.8); MONOCYTES # (AUTO) 0.6 10^3/uL (0.0-1.0); MONOCYTES % (AUTO) 8.5 %; NEUTROPHILS # (AUTO) 4.7 10^3/uL (1.5-6.6); PLT - PLATELET COUNT 156 10^3/uL (130-450); RED BLOOD COUNT 5.05 10^6/uL (4.20-5.40); RED CELL DISTRIBUTION WIDTH 17.4 % (12.0-15.0); WHITE BLOOD COUNT 6.6 x10^3/uL (4.8-10.8)
[2021-02-22 05:44] LABS: CALCIUM 8.5 mg/dL (8.5-10.3); POTASSIUM 3.5 mmol/L (3.5-5.0)
[2021-02-22 05:58] LABS: INR 5.3 (0.8-1.2)
[2021-02-22] MEDS: PANTOPRAZOLE 40 MG VIAL IV SCH (08:28)
[2021-02-22] MEDS: CIPROFLOXACIN 200 MG/100 ML 200 MG/100 ML BAG IV SCH (08:28)
[2021-02-22] MEDS ORDERED: ALBUTEROL NEB 2.5 MG/3 ML INH PRN (09:15)
--- NOTE | 2021-02-22 09:56 | XRAY Report ---
PROCEDURE: Chest 1 View X-Ray INDICATIONS: Shortness of breath TECHNIQUE: One view of the chest was acquired. COMPARISON: 03/04/2021 FINDINGS: Surgical changes and devices: Median sternotomy changes.. Lungs and pleura: Small left pleural effusion. No definite evidence of pneumothorax. Airspace opacity in the lung bases may represent atelectasis or consolidation. Mediastinum: Mediastinal contours appear normal. Aortic atherosclerosis. Bones and chest wall: Redemonstration of multiple left rib fractures, several of which are moderately and mildly displaced. Displaced left clavicle fracture is also redemonstrated. IMPRESSION: Multiple left rib fractures and left clavicle fracture. Left pleural effusion. Bibasilar atelectasis versus consolidation. Reviewed by: Syed Jenkins MD on 02/22/2021 9:54 AM PDT Approved by: Syed Jenkins MD on 02/22/2021 9:54 AM PDT Station ID: [id number]
[2021-02-22] MEDS: FUROSEMIDE 40 MG TABLET PO SCH (10:51)
[2021-02-22] MEDS: SPIRONOLACTONE 25 MG TABLET PO SCH (10:51)
[2021-02-22] MEDS: METOPROLOL SUCCINATE 50 MG TABLET PO SCH ×2 (10:52→20:59)
[2021-02-22] MEDS: metroNIDAZOLE 250 MG TABLET PO SCH ×3 (10:52→20:59)
--- NOTE | 2021-02-22 15:05 | PROVIDER PROGRESS NOTE ---
Assessment/Plan - Problem List (1) Diverticulitis Assessment/Plan: Mild Diverticulitis: Patient report she has no abdominal pain anymore. change to PO Cipro and Flagyl start on diet for pt 2, shortness of breath Patient presented shortness breathing in the morning, ordered chest x-ray, We hold her intravenous IV fluids, we resumed patient home Lasix and spironolactone. after pt was treated diuretics, pt report she feel much better, " I tell you, it is working to me." 3. Supratherapeutic INR INR was 5.3, Likely due to antibiotics Will hold coumadin and check INR daily 4. Nausea and vomiting: resolved. 5. 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 History of aortic valve replacement, mechanical: Patient is on Coumadin 4 mg p.o. daily on her home meds. INR was 5.4 today, hold Coumadin on today We will recheck INR daily 7. History of atrial fibrillation: stable, continue Metoprolol. hold Coumadin 4 mg p.o. daily. INR was 5.3 today We will recheck INR daily 8. Hyperlipidemia Atorvastatin 10mg po daily 9. Lymphedema: Affecting left upper extremity. This was due to radical mastectomy for breast cancer. Patient has a compressive sleeve she normally wears. 10, weakness pt declined arrange to SNF in the previously. PT/OT Evaluation and treated for patient, recommended patient to discharge to SNF In the previous admission. This is the patient's third admission in 3 months. She has also been to the emergency department multiple times in between these admissions. She is very weak and mostly bedbound due to her multiple medical comorbidities. Social work had a conversation with the patient about considering residential facility. The patient declined because she felt she would not have her privacy. She is also working on having her neighbor be at home healthcare provider. Consult with social work for safely disposition - Current Meds Current Meds: Current Medications Generic Name Dose Route Start Last Admin Trade Name Freq PRN Reason Stop Dose Admin Acetaminophen 650 mg 02/20/21 06:06 02/21/21 15:51 Acetaminophen 325 Mg Tablet PO 650 mg Q4HR PRN Administration Pain or Fever > 38C (100.4F) Albuterol 2.5 mg 02/22/21 09:15 02/22/21 11:00 Albuterol Neb 2.5 Mg/3 Ml INH 2.5 mg Q4HR PRN Administration Shortness of Air/Wheezing Furosemide 40 mg 02/22/21 09:00 02/22/21 10:51 Furosemide 40 Mg Tablet PO 40 mg DAILY [facility] Administration Sodium Chloride 250 mls @ 20 mls/hr 02/21/21 22:27 02/22/21 08:27 Normal Saline 0.9% IV Infused Q24H PRN Infusion TKO RATE Lidocaine 1 patch 02/21/21 20:58 02/21/21 21:25 Lidocaine Patch 5% TOP 1 patch DAILY PRN Administration PAIN Metoprolol Succinate 100 mg 02/22/21 10:00 02/22/21 10:52 Metoprolol Succinate 50 Mg Tablet PO 100 mg BID [facility] Administration Metronidazole 500 mg 02/22/21 10:00 02/22/21 10:52 Metronidazole 250 Mg Tablet PO 500 mg TID [facility] Administration Sodium Chloride 10 ml 02/20/21 09:00 02/22/21 08:28 Sodium Chloride Flush 0.9% 10 Ml Syringe IVP 10 ml 0100,0900,1700 [facility] Administration Spironolactone 12.5 mg 02/22/21 09:00 02/22/21 10:51 Spironolactone 25 Mg Tablet PO 12.5 mg DAILY [facility] Administration - Lab Result Fish Bone Diagrams: 02/22/21 05:20 02/22/21 05:20 - Additional Planning My Orders: My Active Orders 02/22/21 08:33 Wound Care - MAC [RC] .ONCE 02/22/21 09:00 Furosemide [Lasix] 40 mg PO DAILY Spironolactone [Aldactone] 12.5 mg PO DAILY 02/22/21 09:15 Albuterol 2.5 mg INH Q4HR PRN 02/22/21 10:00 Metoprolol Succinate [Toprol Xl] 100 mg PO BID metroNIDAZOLE [Flagyl] 500 mg PO TID 02/22/21 11:02 Nebulizer/MDI Tx. [RC] .Q4 02/22/21 14:34 Miscellaenous Nursing Order [RC] DAILY 02/22/21 Dinner Soft Mechanical Diet [DIET] 02/22/21 21:00 Ciprofloxacin [Cipro] 250 mg PO BID Objective Vital Signs: Vital Signs - 24 hr 02/21/21 02/21/21 02/21/21 16:05 16:20 21:00 Temperature 36.4 C L 36.9 C Heart Rate Heart Rate [ 70 70 Brachial] Heart Rate [ Radial] Respiratory 18 18 Rate Blood Pressure 125/80 110/48 L [Right Brachial artery] Blood Pressure [Right Radial artery] O2 Saturation 96 96 100 02/21/21 02/22/21 02/22/21 21:53 00:26 05:00 Temperature 36.7 C 36.7 C Heart Rate Heart Rate [ 70 70 Brachial] Heart Rate [ Radial] Respiratory 15 18 Rate Blood Pressure 114/44 L 121/33 L [Right Brachial artery] Blood Pressure [Right Radial artery] O2 Saturation 97 93 94 02/22/21 02/22/21 02/22/21 08:02 10:10 10:51 Temperature 36.5 C 36.4 C L 36.7 C Heart Rate 70 Heart Rate [ Brachial] Heart Rate [ 70 70 Radial] Respiratory 18 18 24 Rate Blood Pressure [Right Brachial artery] Blood Pressure 134/49 H 146/82 H [Right Radial artery] O2 Saturation 92 93 93 02/22/21 11:00 Temperature Heart Rate 70 Heart Rate [ Brachial] Heart Rate [ Radial] Respiratory 24 Rate Blood Pressure [Right Brachial artery] Blood Pressure [Right Radial artery] O2 Saturation Oxygen O2 Source Room air Oxygen Flow Rate 2 I&O (Last 24 Hrs): Intake and Output Totals x24h 02/20/21 02/21/21 02/22/21 23:59 23:59 23:59 Intake Total 2900.000 2092.000 1429.333 Output Total 450 50 500 Balance 2450.000 2042.000 929.333 - Results Results: Laboratory Results WBC 6.6 x10^3/uL (4.8-10.8) 02/22/21 05:20 RBC 5.05 10^6/uL (4.20-5.40) 02/22/21 05:20 Hgb 14.3 g/dL (12.0-16.0) 02/22/21 05:20 Hct 45.3 % (37.0-47.0) 02/22/21 05:20 MCV 89.7 fL (81.0-99.0) 02/22/21 05:20 MCH 28.3 pg (27.0-31.0) 02/22/21 05:20 MCHC 31.6 g/dL (32.0-36.0) L 02/22/21 05:20 RDW 17.4 % (12.0-15.0) H 02/22/21 05:20 Plt Count 156 10^3/uL (130-450) 02/22/21 05:20 MPV 9.2 fL (7.9-10.8) 02/22/21 05:20 Neut # (Auto) 4.7 10^3/uL (1.5-6.6) 02/22/21 05:20 Lymph # (Auto) 1.0 10^3/uL (1.5-3.5) L 02/22/21 05:20 [place] # (Auto) 0.6 10^3/uL (0.0-1.0) 02/22/21 05:20 Eos # (Auto) 0.3 10^3/uL (0.0-0.7) 02/22/21 05:20 Baso # (Auto) 0.0 10^3/uL (0.0-0.1) 02/22/21 05:20 Absolute Nucleated RBC 0.00 x10^3/uL 02/22/21 05:20 Nucleated RBC % 0.0 /100WBC 02/22/21 05:20 PT 53.0 secs (9.9-12.6) H 02/22/21 05:20 INR 5.3 (0.8-1.2) H* 02/22/21 05:20 Sodium 137 mmol/L (135-145) 02/22/21 05:20 Potassium 3.5 mmol/L (3.5-5.0) 02/22/21 05:20 Chloride 104 mmol/L (101-111) 02/22/21 05:20 Carbon Dioxide 26 mmol/L (21-32) 02/22/21 05:20 Anion Gap 7.0 (6-13) 02/22/21 05:20 BUN 12 mg/dL (6-20) 02/22/21 05:20 Creatinine 1.0 mg/dL (0.4-1.0) 02/22/21 05:20 Estimated GFR (MDRD) 53 (>89) L 02/22/21 05:20 Glucose 139 mg/dL (70-100) H 02/22/21 05:20 Calcium 8.5 mg/dL (8.5-10.3) 02/22/21 05:20 Magnesium 2.0 mg/dL (1.7-2.8) 02/20/21 02:50 Total Bilirubin 1.6 mg/dL (0.2-1.0) H 02/20/21 02:50 AST 43 IU/L (10-42) H 02/20/21 02:50 ALT 26 IU/L (10-60) 02/20/21 02:50 Alkaline Phosphatase 165 IU/L (42-121) H 02/20/21 02:50 Total Protein 6.5 g/dL (6.7-8.2) L 02/20/21 02:50 Albumin 3.1 g/dL (3.2-5.5) L 02/20/21 02:50 Globulin 3.4 g/dL (2.1-4.2) 02/20/21 02:50 Albumin/Globulin Ratio 0.9 (1.0-2.2) L 02/20/21 02:50 Lipase 22 U/L (22-51) 02/20/21 02:50 Urine Color YELLOW 02/20/21 13:25 Urine Clarity CLEAR (CLEAR) 02/20/21 13:25 Urine pH 5.0 PH (5.0-7.5) 02/20/21 13:25 Ur Specific [place] 1.010 (1.002-1.030) 02/20/21 13:25 Urine Protein NEGATIVE mg/dL (NEGATIVE) 02/20/21 13:25 Urine Glucose (UA) NEGATIVE mg/dL (NEGATIVE) 02/20/21 13:25 Urine Ketones NEGATIVE mg/dL (NEGATIVE) 02/20/21 13:25 Urine Occult Blood NEGATIVE (NEGATIVE) 02/20/21 13:25 Urine Nitrite NEGATIVE (NEGATIVE) 02/20/21 13:25 Urine Bilirubin NEGATIVE (NEGATIVE) 02/20/21 13:25 Urine Urobilinogen 0.2 (NORMAL) E.U./dL (NORMAL) 02/20/21 13:25 Ur Leukocyte Esterase NEGATIVE (NEGATIVE) 02/20/21 13:25 Ur Microscopic Review NOT INDICATED 02/20/21 13:25 Urine Culture Comments NOT INDICATED 02/20/21 13:25 Nasal Adenovirus (PCR) NOT DETECTED 02/20/21 05:55 Nasal B. parapertussis DNA (PCR) NOT DETECTED 02/20/21 05:55 Nasal Coronavir 229E PCR NOT DETECTED 02/20/21 05:55 Nasal Coronavir HKU1 PCR NOT DETECTED 02/20/21 05:55 Nasal Coronavir NL63 PCR NOT DETECTED 02/20/21 05:55 Nasal Coronavir OC43 PCR NOT DETECTED 02/20/21 05:55 Nasal Enterovir/Rhinovir PCR NOT DETECTED 02/20/21 05:55 Nasal Influenza B PCR NOT DETECTED 02/20/21 05:55 Nasal Influenza A PCR NOT DETECTED 02/20/21 05:55 Nasal Parainfluen 1 PCR NOT DETECTED 02/20/21 05:55 Nasal Parainfluen 2 PCR NOT DETECTED 02/20/21 05:55 Nasal Parainfluen 3 PCR NOT DETECTED 02/20/21 05:55 Nasal Parainfluen 4 PCR NOT DETECTED 02/20/21 05:55 Nasal RSV (PCR) NOT DETECTED 02/20/21 05:55 Nasal B.pertussis DNA PCR NOT DETECTED 02/20/21 05:55 Nasal C.pneumoniae (PCR) NOT DETECTED 02/20/21 05:55 Dimitris Human Metapneumo PCR NOT DETECTED 02/20/21 05:55 Nasal M.pneumoniae (PCR) NOT DETECTED 02/20/21 05:55 Nasal SARS-CoV-2 (PCR) NOT DETECTED 02/20/21 05:55 - Procedures Procedures: Procedures CATARAC PHACOEMULS/ASPIR (09/11/13) INSERT LENS AT CATAR EXT (09/11/13) ABX Reporting Has patient been on IV antibiotics over the past 48 hours?: Yes
[2021-02-22] MEDS: ATORVASTATIN 10 MG TABLET PO SCH (20:59)
[2021-02-22] MEDS: PANTOPRAZOLE 40 MG TABLET PO SCH (20:59)
[2021-02-22] MEDS: LIDOCAINE PATCH 5% TOP PRN (20:59)
[2021-02-22] MEDS ORDERED: CIPROFLOXACIN 250 MG TABLET PO SCH (21:00)
[2021-02-23] MEDS: metroNIDAZOLE 250 MG TABLET PO SCH ×3 (06:00→22:00)
[2021-02-23 06:09] LABS: BASOPHILS % (AUTO) 0.3 %; EOSINOPHILS # (AUTO) 0.3 10^3/uL (0.0-0.7); EOSINOPHILS % (AUTO) 3.8 %; HCT - HEMATOCRIT 46.2 % (37.0-47.0); LYMPHOCYTES # (AUTO) 1.1 10^3/uL (1.5-3.5); LYMPHOCYTES % (AUTO) 16.1 %; MEAN CORPUSCULAR HEMOGLOBIN 28.5 pg (27.0-31.0); MEAN CORPUSCULAR HGB CONC 32.5 g/dL (32.0-36.0); MEAN CORPUSCULAR VOLUME 87.8 fL (81.0-99.0); MEAN PLATELET VOLUME 9.2 fL (7.9-10.8); MONOCYTES # (AUTO) 0.6 10^3/uL (0.0-1.0); MONOCYTES % (AUTO) 9.8 %; NEUTROPHILS # (AUTO) 4.6 10^3/uL (1.5-6.6); NEUTROPHILS % (AUTO) 69.7 %; PLT - PLATELET COUNT 187 10^3/uL (130-450); RED BLOOD COUNT 5.26 10^6/uL (4.20-5.40); RED CELL DISTRIBUTION WIDTH 17.7 % (12.0-15.0); WHITE BLOOD COUNT 6.5 x10^3/uL (4.8-10.8)
[2021-02-23 06:18] LABS: CALCIUM 9.2 mg/dL (8.5-10.3); CREATININE 1.1 mg/dL (0.4-1.0); INR 2.8 (0.8-1.2); POTASSIUM 3.9 mmol/L (3.5-5.0); PT - PROTHROMBIN TIME 29.4 secs (9.9-12.6)
[2021-02-23] MEDS ORDERED: WARFARIN 1 MG TABLET PO ONE (09:00)
[2021-02-23] MEDS ORDERED: AZITHROMYCIN 250 MG TABLET PO SCH (09:00)
[2021-02-23] MEDS ORDERED: CEFEPIME 1 GM in SODIUM CHLORIDE 0.9% MINIBAG 100 ML IV SCH (09:00)
[2021-02-23] MEDS ORDERED: levoFLOXacin 250 MG TABLET PO SCH (10:00)
[2021-02-23] MEDS: PANTOPRAZOLE 40 MG TABLET PO SCH ×2 (11:11→22:00)
[2021-02-23] MEDS: SPIRONOLACTONE 25 MG TABLET PO SCH (11:11)
[2021-02-23] MEDS: METOPROLOL SUCCINATE 50 MG TABLET PO SCH ×2 (11:11→22:00)
[2021-02-23] MEDS: LOSARTAN 50 MG TABLET PO SCH (11:12)
[2021-02-23] MEDS: SODIUM CHLORIDE FLUSH 0.9% 10 ML SYRINGE IVP SCH ×3 (11:15→22:55)
[2021-02-23] MEDS: FUROSEMIDE 40 MG TABLET PO SCH (11:16)
[2021-02-23] MEDS ORDERED: ONDANSETRON ODT 4 MG TABLET TL PRN (12:37)
--- NOTE | 2021-02-23 15:06 | PROVIDER PROGRESS NOTE ---
Assessment/Plan - Problem List (1) Diverticulitis Assessment/Plan: 02/23 improved. pt tolerated diet, Continue p.o. antibiotics Mild Diverticulitis: Patient report she has no abdominal pain anymore. change to PO Cipro and Flagyl start on diet for pt 2, shortness of breath Patient presented shortness breathing in the morning, ordered chest x-ray, We hold her intravenous IV fluids, we resumed patient home Lasix and spironolactone. after pt was treated diuretics, pt report she feel much better, " I tell you, it is working to me." 3 pneumonia Patient's O2 sats is drop, patient present cough, chest x-ray shows bibasilar consolidation. Patient is already in Cipro and Flagyl, will switch Cipro to Levaquin 4. Supratherapeutic INR 02/23 Patient's INR today is 2.8, we will add home Coumadin, check PT and INR. INR was 5.3, Likely due to antibiotics Will hold coumadin and check INR daily 5. Nausea and vomiting: resolved. 6. 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 History of aortic valve replacement, mechanical: 02/23 Patient's INR today is 2.8, we will add home Coumadin, check PT and INR. Patient is on Coumadin 4 mg p.o. daily on her home meds. INR was 5.4 today, hold Coumadin on today We will recheck INR daily 8. History of atrial fibrillation: stable, continue Metoprolol. hold Coumadin 4 mg p.o. daily. INR was 5.3 today We will recheck INR daily 9. Hyperlipidemia Atorvastatin 10mg po daily 10. Lymphedema: Affecting left upper extremity. This was due to radical mastectomy for breast cancer. Patient has a compressive sleeve she normally wears. 11, weakness pt declined arrange to SNF in the previously. PT/OT Evaluation and treated for patient, recommended patient to discharge to SNF In the previous admission. This is the patient's third admission in 3 months. She has also been to the emergency department multiple times in between these admissions. She is very weak and mostly bedbound due to her multiple medical comorbidities. Social work had a conversation with the patient about considering [facility] facility. The patient declined because she felt she would not have her privacy. She is also working on having her neighbor be at home healthcare provider. Consult with social work for safely disposition 12,rib fractures Chest x-ray show left rib fractures and clavicle fractures which was old. pt has no acute fall and fractures at this time. Patient denying pain, patient walk with physical therapist. Patient declined to SNF in the last admission. add incentive spirometer, Continue PT/OT and fall prevention management. - Current Meds Current Meds: Current Medications Generic Name Dose Route Start Last Admin Trade Name Freq PRN Reason Stop Dose Admin Acetaminophen 650 mg 02/20/21 06:06 02/21/21 15:51 Acetaminophen 325 Mg Tablet PO 650 mg Q4HR PRN Administration Pain or Fever > 38C (100.4F) Albuterol 2.5 mg 02/22/21 09:15 02/22/21 11:00 Albuterol Neb 2.5 Mg/3 Ml INH 2.5 mg Q4HR PRN Administration Shortness of Air/Wheezing Atorvastatin Calcium 10 mg 02/22/21 21:00 02/22/21 20:59 Atorvastatin 10 Mg Tablet PO 10 mg QPM [facility] Administration Furosemide 40 mg 02/22/21 09:00 02/23/21 11:16 Furosemide 40 Mg Tablet PO 40 mg DAILY [facility] Administration Sodium Chloride 250 mls @ 20 mls/hr 02/21/21 22:27 02/22/21 08:27 Normal Saline 0.9% IV Infused Q24H PRN Infusion TKO RATE Levofloxacin 750 mg 02/23/21 10:00 02/23/21 11:11 Levofloxacin 250 Mg Tablet PO 750 mg Q48H [facility] Administration Lidocaine 1 patch 02/21/21 20:58 02/22/21 20:59 Lidocaine Patch 5% TOP 1 patch DAILY PRN Administration PAIN Losartan Potassium 25 mg 02/23/21 09:00 02/23/21 11:12 Losartan 50 Mg Tablet PO 25 mg DAILY [facility] Administration Metoprolol Succinate 100 mg 02/22/21 10:00 02/23/21 11:11 Metoprolol Succinate 50 Mg Tablet PO 100 mg BID [facility] Administration Metronidazole 500 mg 02/22/21 10:00 02/23/21 14:19 Metronidazole 250 Mg Tablet PO 500 mg TID [facility] Administration Pantoprazole Sodium 40 mg 02/22/21 21:00 02/23/21 11:11 Pantoprazole 40 Mg Tablet PO 40 mg BID [facility] Administration Sodium Chloride 10 ml 02/20/21 09:00 02/23/21 11:15 Sodium Chloride Flush 0.9% 10 Ml Syringe IVP Not Given 0100,0900,1700 [facility] Spironolactone 12.5 mg 02/22/21 09:00 02/23/21 11:11 Spironolactone 25 Mg Tablet PO 12.5 mg DAILY [facility] Administration - Lab Result Fish Bone Diagrams: 02/23/21 05:45 02/23/21 05:45 - Additional Planning My Orders: My Active Orders 02/22/21 14:34 Miscellaenous Nursing Order [RC] DAILY 02/22/21 Dinner Soft Mechanical Diet [DIET] 02/22/21 21:00 Atorvastatin [Lipitor] 10 mg PO QPM 02/23/21 08:37 Out of bed 3+ hours today [RC] TID 02/23/21 09:00 Losartan [Cozaar] 25 mg PO DAILY 02/23/21 10:00 levoFLOXacin [Levaquin] 750 mg PO Q48H 02/23/21 11:47 Incentive Spirometry - RT [RC] .TID 02/23/21 12:37 Ondansetron Odt [Zofran Odt] 4 mg TL Q6HR PRN 02/24/21 14:00 Warfarin [Coumadin] 2 mg PO QDWARFARIN Subjective - Subjective Patient Reports: Feeling Better Objective Vital Signs: Vital Signs - 24 hr 02/22/21 02/22/21 02/23/21 15:42 20:36 00:00 Temperature 37.0 C 36.6 C 36.7 C Heart Rate [ 72 Brachial] Heart Rate [ 70 70 Radial] Respiratory 24 24 28 H Rate Blood Pressure 121/47 L 106/41 L 113/58 L [Right Brachial artery] Blood Pressure [Right Radial artery] O2 Saturation 96 93 92 02/23/21 02/23/21 02/23/21 05:20 06:00 09:00 Temperature 37.0 C 36.9 C 36.6 C Heart Rate [ 93 22 L Brachial] Heart Rate [ 70 70 Radial] Respiratory 26 H 19 22 Rate Blood Pressure 98/73 [Right Brachial artery] Blood Pressure 120/66 122/55 L [Right Radial artery] O2 Saturation 95 92 98 02/23/21 02/23/21 09:30 11:05 Temperature 36.5 C Heart Rate [ 70 Brachial] Heart Rate [ Radial] Respiratory 20 24 Rate Blood Pressure [Right Brachial artery] Blood Pressure 116/54 L [Right Radial artery] O2 Saturation 92 Oxygen O2 Source Room air Oxygen Flow Rate 2 I&O (Last 24 Hrs): Intake and Output Totals x24h 02/21/21 02/22/21 02/23/21 23:59 23:59 23:59 Intake Total 2092.000 1729.333 150 Output Total 50 1300 175 Balance 2042.000 429.333 -25 General: Alert, Oriented x3, Cooperative, No acute distress HEENT: Atraumatic Neck: Supple Lymphatic: no adenopathy Neuro: Alert, Non Focal, Oriented Times 3 Cardiovascular: Regular rate, Normal S1, Normal S2 Respiratory: Chest non-tender, No respiratory distress Abdomen: Normal bowel sounds, Soft Extremities: Normal pulses - Results Results: Laboratory Results WBC 6.5 x10^3/uL (4.8-10.8) 02/23/21 05:45 RBC 5.26 10^6/uL (4.20-5.40) 02/23/21 05:45 Hgb 15.0 g/dL (12.0-16.0) 02/23/21 05:45 Hct 46.2 % (37.0-47.0) 02/23/21 05:45 MCV 87.8 fL (81.0-99.0) 02/23/21 05:45 MCH 28.5 pg (27.0-31.0) 02/23/21 05:45 MCHC 32.5 g/dL (32.0-36.0) 02/23/21 05:45 RDW 17.7 % (12.0-15.0) H 02/23/21 05:45 Plt Count 187 10^3/uL (130-450) 02/23/21 05:45 MPV 9.2 fL (7.9-10.8) 02/23/21 05:45 Neut # (Auto) 4.6 10^3/uL (1.5-6.6) 02/23/21 05:45 Lymph # (Auto) 1.1 10^3/uL (1.5-3.5) L 02/23/21 05:45 [place] # (Auto) 0.6 10^3/uL (0.0-1.0) 02/23/21 05:45 Eos # (Auto) 0.3 10^3/uL (0.0-0.7) 02/23/21 05:45 Baso # (Auto) 0.0 10^3/uL (0.0-0.1) 02/23/21 05:45 Absolute Nucleated RBC 0.00 x10^3/uL 02/23/21 05:45 Nucleated RBC % 0.0 /100WBC 02/23/21 05:45 PT 29.4 secs (9.9-12.6) H 02/23/21 05:45 INR 2.8 (0.8-1.2) H 02/23/21 05:45 Sodium 141 mmol/L (135-145) 02/23/21 05:45 Potassium 3.9 mmol/L (3.5-5.0) 02/23/21 05:45 Chloride 105 mmol/L (101-111) 02/23/21 05:45 Carbon Dioxide 27 mmol/L (21-32) 02/23/21 05:45 Anion Gap 9.0 (6-13) 02/23/21 05:45 BUN 12 mg/dL (6-20) 02/23/21 05:45 Creatinine 1.1 mg/dL (0.4-1.0) H 02/23/21 05:45 Estimated GFR (MDRD) 47 (>89) L 02/23/21 05:45 Glucose 95 mg/dL (70-100) 02/23/21 05:45 Calcium 9.2 mg/dL (8.5-10.3) 02/23/21 05:45 Magnesium 2.0 mg/dL (1.7-2.8) 02/20/21 02:50 Total Bilirubin 1.6 mg/dL (0.2-1.0) H 02/20/21 02:50 AST 43 IU/L (10-42) H 02/20/21 02:50 ALT 26 IU/L (10-60) 02/20/21 02:50 Alkaline Phosphatase 165 IU/L (42-121) H 02/20/21 02:50 Total Protein 6.5 g/dL (6.7-8.2) L 02/20/21 02:50 Albumin 3.1 g/dL (3.2-5.5) L 02/20/21 02:50 Globulin 3.4 g/dL (2.1-4.2) 02/20/21 02:50 Albumin/Globulin Ratio 0.9 (1.0-2.2) L 02/20/21 02:50 Lipase 22 U/L (22-51) 02/20/21 02:50 Urine Color YELLOW 02/20/21 13:25 Urine Clarity CLEAR (CLEAR) 02/20/21 13:25 Urine pH 5.0 PH (5.0-7.5) 02/20/21 13:25 Ur Specific [place] 1.010 (1.002-1.030) 02/20/21 13:25 Urine Protein NEGATIVE mg/dL (NEGATIVE) 02/20/21 13:25 Urine Glucose (UA) NEGATIVE mg/dL (NEGATIVE) 02/20/21 13:25 Urine Ketones NEGATIVE mg/dL (NEGATIVE) 02/20/21 13:25 Urine Occult Blood NEGATIVE (NEGATIVE) 02/20/21 13:25 Urine Nitrite NEGATIVE (NEGATIVE) 02/20/21 13:25 Urine Bilirubin NEGATIVE (NEGATIVE) 02/20/21 13:25 Urine Urobilinogen 0.2 (NORMAL) E.U./dL (NORMAL) 02/20/21 13:25 Ur Leukocyte Esterase NEGATIVE (NEGATIVE) 02/20/21 13:25 Ur Microscopic Review NOT INDICATED 02/20/21 13:25 Urine Culture Comments NOT INDICATED 02/20/21 13:25 Nasal Adenovirus (PCR) NOT DETECTED 02/20/21 05:55 Nasal B. parapertussis DNA (PCR) NOT DETECTED 02/20/21 05:55 Nasal Coronavir 229E PCR NOT DETECTED 02/20/21 05:55 Nasal Coronavir HKU1 PCR NOT DETECTED 02/20/21 05:55 Nasal Coronavir NL63 PCR NOT DETECTED 02/20/21 05:55 Nasal Coronavir OC43 PCR NOT DETECTED 02/20/21 05:55 Nasal Enterovir/Rhinovir PCR NOT DETECTED 02/20/21 05:55 Nasal Influenza B PCR NOT DETECTED 02/20/21 05:55 Nasal Influenza A PCR NOT DETECTED 02/20/21 05:55 Nasal Parainfluen 1 PCR NOT DETECTED 02/20/21 05:55 Nasal Parainfluen 2 PCR NOT DETECTED 02/20/21 05:55 Nasal Parainfluen 3 PCR NOT DETECTED 02/20/21 05:55 Nasal Parainfluen 4 PCR NOT DETECTED 02/20/21 05:55 Nasal RSV (PCR) NOT DETECTED 02/20/21 05:55 Nasal B.pertussis DNA PCR NOT DETECTED 02/20/21 05:55 Nasal C.pneumoniae (PCR) NOT DETECTED 02/20/21 05:55 Dimitris Human Metapneumo PCR NOT DETECTED 02/20/21 05:55 Nasal M.pneumoniae (PCR) NOT DETECTED 02/20/21 05:55 Nasal SARS-CoV-2 (PCR) NOT DETECTED 02/20/21 05:55 - Procedures Procedures: Procedures CATARAC PHACOEMULS/ASPIR (09/11/13) INSERT LENS AT CATAR EXT (09/11/13) ABX Reporting Has patient been on IV antibiotics over the past 48 hours?: Yes Current Medications - Current Medications Current Medications: Active Medications Acetaminophen (Acetaminophen 325 Mg Tablet) 650 mg PO Q4HR PRN PRN Reason: Pain or Fever > 38C (100.4F) Last Admin: 02/21/21 15:51 Dose: 650 mg Documented by: Albuterol (Albuterol Neb 2.5 Mg/3 Ml) 2.5 mg INH Q4HR PRN PRN Reason: Shortness of Air/Wheezing Last Admin: 02/22/21 11:00 Dose: 2.5 mg Documented by: Atorvastatin Calcium (Atorvastatin 10 Mg Tablet) 10 mg PO QPM [facility] Last Admin: 02/22/21 20:59 Dose: 10 mg Documented by: Furosemide (Furosemide 40 Mg Tablet) 40 mg PO DAILY [facility] Last Admin: 02/23/21 11:16 Dose: 40 mg Documented by: Sodium Chloride (Normal Saline 0.9%) 250 mls @ 20 mls/hr IV Q24H PRN PRN Reason: TKO RATE Last Infusion: 02/22/21 08:27 Dose: Infused Documented by: Levofloxacin (Levofloxacin 250 Mg Tablet) 750 mg PO Q48H [facility] Last Admin: 02/23/21 11:11 Dose: 750 mg Documented by: Lidocaine (Lidocaine Patch 5%) 1 patch TOP DAILY PRN PRN Reason: PAIN Last Admin: 02/22/21 20:59 Dose: 1 patch Documented by: Losartan Potassium (Losartan 50 Mg Tablet) 25 mg PO DAILY [facility] Last Admin: 02/23/21 11:12 Dose: 25 mg Documented by: Metoprolol Succinate (Metoprolol Succinate 50 Mg Tablet) 100 mg PO BID [facility] Last Admin: 02/23/21 11:11 Dose: 100 mg Documented by: Metronidazole (Metronidazole 250 Mg Tablet) 500 mg PO TID [facility] Last Admin: 02/23/21 14:19 Dose: 500 mg Documented by: Ondansetron HCl (Ondansetron 4 Mg/2 Ml Vial) 4 mg IVP Q6HR PRN PRN Reason: Nausea / Vomiting Ondansetron HCl (Ondansetron Odt 4 Mg Tablet) 4 mg TL Q6HR PRN PRN Reason: Nausea / Vomiting Pantoprazole Sodium (Pantoprazole 40 Mg Tablet) 40 mg PO BID [facility] Last Admin: 02/23/21 11:11 Dose: 40 mg Documented by: Prochlorperazine Edisylate (Prochlorperazine 10 Mg/2 Ml Vial) 10 mg IVP Q6HR PRN PRN Reason: Nausea / Vomiting Sodium Chloride (Sodium Chloride Flush 0.9% 10 Ml Syringe) 10 ml IVP PRN PRN PRN Reason: NEEDED PER PROVIDER ORDERS Sodium Chloride (Sodium Chloride Flush 0.9% 10 Ml Syringe) 10 ml IVP 0100 ,0900,1700 [facility] Last Admin: 02/23/21 11:15 Dose: Not Given Documented by: Spironolactone (Spironolactone 25 Mg Tablet) 12.5 mg PO DAILY [facility] Last Admin: 02/23/21 11:11 Dose: 12.5 mg Documented by: Warfarin Sodium (Warfarin 1 Mg Tablet) 2 mg PO QDWARFARIN [facility] Atorvastatin [Lipitor] 10 mg PO QPM 05/16/16 Cholecalciferol (Vitamin D3) [Vitamin D3] 5,000 unit PO MOWEFR 05/16/16 Spironolactone [Aldactone] 12.5 mg PO DAILY 07/22/20 Cefadroxil [Duricef] 500 mg PO BID 12/17/20 Albuterol Sulf [Ventolin Hfa Inhaler] 2 puffs INH Q4HR PRN 02/21/21 Furosemide [Lasix] 40 mg PO DAILY 02/21/21 Losartan Potassium 25 mg PO DAILY 02/21/21 Metoprolol Succinate 100 mg PO BID 02/21/21 Potassium Chloride [Klor-Con 10] 10 meq PO BIDWM 02/21/21 Warfarin Sodium [Coumadin] 2 mg PO DAILY 02/21/21
[2021-02-23] MEDS ORDERED: SACCHAROMYCES BOULARDII 250 MG CAPSULE PO SCH (17:00)
[2021-02-23] MEDS: LIDOCAINE PATCH 5% TOP PRN (17:56)
[2021-02-23] MEDS: ATORVASTATIN 10 MG TABLET PO SCH (22:00)
[2021-02-24 05:47] LABS: BASOPHILS % (AUTO) 0.5 %; CREATININE 1.2 mg/dL (0.4-1.0); EOSINOPHILS # (AUTO) 0.2 10^3/uL (0.0-0.7); EOSINOPHILS % (AUTO) 2.7 %; HCT - HEMATOCRIT 42.7 % (37.0-47.0); HGB - HEMOGLOBIN 13.7 g/dL (12.0-16.0); LYMPHOCYTES # (AUTO) 1.3 10^3/uL (1.5-3.5); LYMPHOCYTES % (AUTO) 20.2 %; MEAN CORPUSCULAR HEMOGLOBIN 28.2 pg (27.0-31.0); MEAN CORPUSCULAR HGB CONC 32.1 g/dL (32.0-36.0); MEAN CORPUSCULAR VOLUME 87.9 fL (81.0-99.0); MEAN PLATELET VOLUME 9.3 fL (7.9-10.8); MONOCYTES # (AUTO) 0.8 10^3/uL (0.0-1.0); MONOCYTES % (AUTO) 12.6 %; NEUTROPHILS % (AUTO) 63.7 %; PLT - PLATELET COUNT 180 10^3/uL (130-450); POTASSIUM 3.3 mmol/L (3.5-5.0); RED BLOOD COUNT 4.86 10^6/uL (4.20-5.40); RED CELL DISTRIBUTION WIDTH 17.9 % (12.0-15.0); WHITE BLOOD COUNT 6.3 x10^3/uL (4.8-10.8)
[2021-02-24] MEDS: metroNIDAZOLE 250 MG TABLET PO SCH ×2 (05:55→13:16)
[2021-02-24 06:12] LABS: INR 1.8 (0.8-1.2); PT - PROTHROMBIN TIME 18.9 secs (9.9-12.6)
[2021-02-24] MEDS ORDERED: POTASSIUM CHLORIDE 20 MEQ TABLET PO ONE (07:35)
[2021-02-24] MEDS ORDERED: FUROSEMIDE 40 MG TABLET PO SCH (09:00)
[2021-02-24] MEDS ORDERED: POTASSIUM CHLORIDE 20 MEQ TABLET PO SCH (09:00)
[2021-02-24] MEDS: SPIRONOLACTONE 25 MG TABLET PO SCH (10:44)
[2021-02-24] MEDS: PANTOPRAZOLE 40 MG TABLET PO SCH (10:46)
[2021-02-24] MEDS: LOSARTAN 50 MG TABLET PO SCH (10:46)
[2021-02-24] MEDS: METOPROLOL SUCCINATE 50 MG TABLET PO SCH (10:46)
[2021-02-24] MEDS: SODIUM CHLORIDE FLUSH 0.9% 10 ML SYRINGE IVP SCH (10:46)
[2021-02-24 12:22] VITALS: BP 128/80
--- NOTE | 2021-02-24 12:32 | Discharge Plan ---
Discharge Plan Problem Reviewed?: Yes Disposition: Home, Self Care Condition: Stable Prescriptions: metroNIDAZOLE [Flagyl] 250 mg PO TID 5 Days #15 tablet Furosemide [Lasix] 20 mg PO DAILY #30 tablet levoFLOXacin [Levaquin] 250 mg PO DAILY #5 tablet Diet: Cardiac Activity Restrictions: Activity as Tolerated Shower Restrictions: No (fall precaution) Instruction Topics: Diverticulitis Dc, Pneumonia, Shortness of Breath Control Stress, Falls Prevent Home, Fx Rib Health Concerns: diverticulitis, pneumonia Plan of Treatment: pt are prescribed antibiotics to finish the treatment for your diverticulitis and pneumonia. your abdominal pain is resolved and you tolerated regular diet. Your Lasix dosage is reduced to 20mg daily but keep your home spironolactone dosage. You walked 100 feet in hospital at this time. You may followup with instruction to prevention of fall in the home. You declined to d/c to nurse debi brown. You may followup with your PCP in one week to continue management of your medical problems. Care Goals: stabilization and improvement of your medical conditions Assessment: discussed the care plan with you, you understood and agreed the plan. Additional Instructions or Follow Up instructions: You may follow-up with your PCP in 1 week. should your symptoms return or worsen, you may present to ER or call 911 for help No Smoking: If you smoke, Please STOP! Call for help. Follow-up with: Jasmin Garland MD [Primary Care Provider] -
--- NOTE | 2021-02-24 12:50 | DISCHARGE SUMMARY ---
Discharge Summary Admit Date: 02/20/21 Discharge Date: 02/24/21 Discharging Provider: Tk Carbajal Primary Care Provider: Jasmin Massey Condition at Discharge: Stable Discharge Disposition: 01 Home, Self Care Discharge Facility Name: home - DIAGNOSES Discharge Diagnoses with Status of Each Condition: (1) Diverticulitis Patient tolerated regular diet, patient denying abdominal pain, patient has no nausea or vomiting. Patient is prescription of PO antibiotics to finish the treatment course. 2, shortness of breath stable as her baseline. Patient had 94% sats on room air. patient had no acute respiratory distress. Patient walk 100 feet with PT on room air Without respiratory distress 3 pneumonia Patient is prescripted antibiotics to finish the treatment course. Patient has no acute respiratory distress, patient had normal WBC, patient had no fever. 4. Supratherapeutic INR Resolved, patient already restarted Coumadin in the hospital. Patient may follow-up with her PCP to management. 5. Nausea and vomiting: resolved. 6. Congestive Heart Failure: stable, Continue home medication regiment, Follow-up flotation operator as outpatient 7. History of aortic valve replacement, mechanical: Resume home Coumadin, follow-up with PCP for management 8. History of atrial fibrillation: stable,Resume home meds, Follow-up flotation operator management 9. Hyperlipidemia stable 10. Lymphedema: stable 11, weakness pt declined arrange to SNF in the previously. PT/OT Evaluation and treated for patient in this time. Patient declined help again 12,rib fractures Chest x-ray show left rib fractures and clavicle fractures which was old. pt has no acute fall and fractures at this time. Patient denying pain, patient walk 100 feet with physical therapist. Education patient for precaution of the fall. Patient had PT and OT evaluation and treatment. Patient declined discharge to SNF in the previous. - HPI History of Present Illness: refer from 's HPI on Patient is an 85-year-old female with medical history significant for CHF, hyperlipidemia, atrial fibrillation, hypertension, history of breast cancer status post radical mastectomy, chronic left upper extremity lymphedema secondary to mastectomy, pacemaker placement, history of mechanical aortic valve who presented to the ED with complaint of nausea and vomiting for the past 3 days. She has been unable to keep anything down. She had significantly dry oral mucosa and is very weak. She is frail/cachectic appearing. She denied fever or chills. She has been having loose stools daily but no diarrhea She was admitted to the hospital 19 days prior for the same presentation. At the time she was treated for dehydration and discharged home after an overnight observation. During this presentation she had a CT of the abdomen pelvis done which raised the possibility of diverticulitis. As a result she was admitted and started on Cipro and Flagyl. - HOSPITAL COURSE Hospital Course: Patient was admitted for nausea and vomiting, patient was found to have mild diverticulitis. Patient was treated with antibiotics. after treatment, patient's abdominal pain, nausea vomiting was resolved. Patient tolerated re gular diet. Patient also develop pneumonia in the hospital, patient continue treated with antibiotics. Patient had PT and OT evaluation and treatment, patient walk in the hallway 100 feet without respiratory distress. Patient is discharged in a hemodynamically stable condition - ALLERGIES Allergies/Adverse Reactions: Allergies Allergy/AdvReac Type Severity Reaction Status Date / Time codeine AdvReac Unknown Nausea Verified 02/20/21 02:39 - MEDICATIONS Home Medications: Ambulatory Orders Medication Instructions Recorded Confirmed Atorvastatin [Lipitor] 10 mg PO QPM 05/16/16 02/21/21 Cholecalciferol (Vitamin D3) 5,000 unit PO MOWEFR 05/16/16 02/21/21 [Vitamin D3] Spironolactone [Aldactone] 12.5 mg PO DAILY 07/22/20 02/21/21 Calcium Citrate 250 mg PO DAILY #30 tablet 02/02/21 02/21/21 Albuterol Sulf [Ventolin Hfa 2 puffs INH Q4HR PRN 02/21/21 02/21/21 Inhaler] Losartan Potassium 25 mg PO DAILY 02/21/21 02/21/21 Metoprolol Succinate 100 mg PO BID 02/21/21 02/21/21 Potassium Chloride [Klor-Con 10] 10 meq PO BIDWM 02/21/21 02/21/21 Warfarin Sodium [Coumadin] 2 mg PO DAILY 02/21/21 02/21/21 Furosemide [Lasix] 20 mg PO DAILY #30 tablet 02/24/21 levoFLOXacin [Levaquin] 250 mg PO DAILY #5 tablet 02/24/21 metroNIDAZOLE [Flagyl] 250 mg PO TID 5 Days #15 tablet 02/24/21 - PHYSICAL EXAM AT DISCHARGE General Appearance: positive: No acute distress, Alert. negative: Lethargic Eyes Bilateral: positive: Normal inspection, PERRL, No lid inflammation ENT: positive: ENT inspection nml, No signs of dehydration. negative: Purulent nasal drainage Neck: positive: Nml inspection, Trachea midline. negative: Thyromegaly, Tracheal deviation Respiratory: positive: Chest non-tender, No respiratory distress. negative: Wheezes Cardiovascular: positive: Regular rate & rhythm, No murmur. negative: T achycardia, Bradycardia, Systolic murmur, Diastolic murmur Peripheral Pulses: positive: 2+ Abdomen: positive: Non-tender, Nml bowel sounds, No distention. negative: Tenderness Back: positive: Nml inspection Skin: positive: Color nml, Warm, Dry. negative: Cyanosis Extremities: positive: Non-tender, Full ROM, Nml appearance. negative: Calf tenderness Neurologic/Psychiatric: positive: Oriented x3, Motor nml, Sensation nml. negative: Weakness, Sensory loss, Facial droop, Slurred/abnml speech, Depressed mood/affect - LABS Result Diagrams: 02/24/21 05:29 02/24/21 05:29 - FOLLOW UP Follow Up: pt are prescribed antibiotics to finish the treatment for your diverticulitis and pneumonia. your abdominal pain is resolved and you tolerated regular diet. Your Lasix dosage is reduced to 20mg daily but keep your home spironolactone dosage. You walked 100 feet in hospital at this time. You may followup with instruction to prevention of fall in the home. You declined to d/c to nurse facility. You may followup with your PCP in one week to continue management of your medical problems. You may follow-up with your PCP in 1 week, recheck BMP in one week. should your symptoms return or worsen, you may present to ER or call 911 for help - TIME SPENT Time Spent in Discharge (Minutes): 30
[2021-02-24] MEDS ORDERED: WARFARIN 1 MG TABLET PO SCH (14:00)
== END 2021-02-24 14:00 | disposition home or self-care (01) | DRG 391 ==
LOC: EDUNIT# → SUATTDRO 02:22 → SUPCPDRO 02:22 → ED 02:22 → MS2 06:03
PROVIDERS: ADMIT Internal Medicine; ATTEND Internal Medicine
DX: R10.10 Upper abdominal pain, unspecified (principal); R11.2 Nausea with vomiting, unspecified; E86.0 Dehydration; K57.30 Diverticulosis of large intestine without perforation or abscess without bleeding; K57.32 Diverticulitis of large intestine without perforation or abscess without bleeding; J18.9 Pneumonia, unspecified organism; E78.00 Pure hypercholesterolemia, unspecified; I11.0 Hypertensive heart disease with heart failure; I50.9 Heart failure, unspecified; I48.91 Unspecified atrial fibrillation; E78.5 Hyperlipidemia, unspecified; Z20.822 Contact with and (suspected) exposure to COVID-19; R06.02 Shortness of breath; G62.9 Polyneuropathy, unspecified; R79.1 Abnormal coagulation profile; M81.0 Age-related osteoporosis without current pathological fracture; M54.6 Pain in thoracic spine; I97.2 Postmastectomy lymphedema syndrome; Z66 Do not resuscitate; Z79.01 Long term (current) use of anticoagulants; Z79.899 Other long term (current) drug therapy; Z95.2 Presence of prosthetic heart valve; Z95.0 Presence of cardiac pacemaker; Z85.3 Personal history of malignant neoplasm of breast; Z87.828 Personal history of other (healed) physical injury and trauma; Z91.81 History of falling
CPT/HCPCS: 36415; 71045; 74177; 80048; 80053; 81003; 82272; 83690; 83735; 85025; 85379; 85610; 87631; 94640; 96374; 96375; 97116; 97161; 97165; 97530; 99284; 99285; A9270; Q9967; 0202U; 81001; 87086

== ENCOUNTER 2021-03-03 11:02 | Outpatient (CLI) | payer MEDICARE | END 2021-03-03 11:03 | disposition critical access hospital (66) | LOC: EMS 11:02 | DX: R33.9 Retention of urine, unspecified (principal); R11.0 Nausea | CPT/HCPCS: A0425; A0429 ==

== ENCOUNTER 2021-03-03 11:16 | Emergency (ER) | payer MEDICARE ==
[2021-03-03] MEDS ORDERED: SODIUM CHLORIDE 0.9% 1,000 ML IV STA (11:50)
[2021-03-03] MEDS ORDERED: ONDANSETRON 4 MG/2 ML VIAL IVP STA (11:50)
--- NOTE | 2021-03-03 11:50 | ED Physician Documentation ---
History of Present Illness - Stated complaint Stated Complaint: WEAKNESS - Chief complaint Chief Complaint: Abd Pain - Additonal information Additional information: 85-year-old female presents to the emergency department for chief complaint that she has been unable to urinate for 16 hours. She reports that she is on spironolactone as well as furosemide for her history of heart failure as well as lymphedema in the left arm. Despite taking these medications she has had no urination now. She denies the sensation or the need to void. No recent fevers. Unfortunately she was recently admitted to this hospital for nausea vomiting and suspected diverticulitis. She was discharged from the hospital on 24 February with prescription for Levaquin. She did call the discharge nurse shortly after discharge and reported that she continued to vomit while taking the Levaquin therefore her antibiotics were changed to Augmentin. This prescription is nearly complete. She was also treated for pneumonia with the last hospitalization. She reports that she still continues to vomit occasionally. When she eats she feels full rather fast and feels like something is stuck in her throat. This will often cause her to cough at which point she will then vomit sometimes its phlegm but other times it is food. PMH most significant for CHF, atrial fibrillation (anticoagulated), hx of breast cancer s/p radical mastectomy with chronic lymphedema of the left arm, s/p pace and mechanical aortic valve. pt lives with her brother in law. with multiple other hospitalizations she has been offered SNF placement but has declined. Review of Systems Constitutional: reports: Fatigue, Weight Loss. denies: Fever, Chills Eyes: reports: Reviewed and negative Nose: reports: Reviewed and negative Throat: reports: Reviewed and negative Cardiac: denies: Chest pain / pressure, Palpitations, Pedal edema, Calf pain Respiratory: reports: Dyspnea (baseline unchanged), Cough. denies: Hemoptysis, Wheezing GI: reports: Abdominal Pain, Nausea, Vomiting, Diarrhea : reports: Unable to Void. denies: Dysuria, Frequency, Hesitancy Skin: denies: Rash, Lesions Musculoskeletal: reports: Other (Chronic lymphedema left upper extremity) Neurologic: reports: Generalized weakness. 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: Breast cancer : None HEENT: None Psych: None Musculoskeletal: Osteoporosis, Other Derm: None - Past Surgical History Past Surgical History: Yes General: Appendectomy /REEL AND REWINDER OPERATOR: Mastectomy Cardiovascular: Valve replacement, Pacemaker - Present Medications Home Medications: Ambulatory Orders Medication Instructions Recorded Confirmed Atorvastatin [Lipitor] 10 mg PO QPM 05/16/16 02/21/21 Cholecalciferol (Vitamin D3) 5,000 unit PO MOWEFR 05/16/16 02/21/21 [Vitamin D3] Spironolactone [Aldactone] 12.5 mg PO DAILY 07/22/20 03/03/21 Calcium Citrate 250 mg PO DAILY #30 tablet 02/02/21 02/21/21 Albuterol Sulf [Ventolin Hfa 2 puffs INH Q4HR PRN 02/21/21 02/21/21 Inhaler] Losartan Potassium 25 mg PO DAILY 02/21/21 03/03/21 Metoprolol Succinate 100 mg PO BID 02/21/21 03/03/21 Potassium Chloride [Klor-Con 10] 10 meq PO BIDWM 02/21/21 03/03/21 Warfarin Sodium [Coumadin] 2 mg PO DAILY 02/21/21 03/03/21 Furosemide [Lasix] 20 mg PO DAILY #30 tablet 02/24/21 03/03/21 levoFLOXacin [Levaquin] 250 mg PO DAILY #5 tablet 02/24/21 03/03/21 metroNIDAZOLE [Flagyl] 250 mg PO TID 5 Days #15 tablet 02/24/21 03/03/21 Amox/Clav 875/125 [Augmentin 1 tablet PO Q8H 5 Days #15 tablet 02/26/21 875/125 Tab] Ondansetron Odt [Zofran] 4 mg TL Q6H PRN #30 tablet 03/03/21 - Allergies Allergies/Adverse Reactions: Allergies Allergy/AdvReac Type Severity Reaction Status Date / Time codeine AdvReac Unknown Nausea Verified 03/03/21 11:31 - Social History Does the pt smoke?: No Smoking Status: Never smoker Does the pt drink ETOH?: Yes Does the pt have substance abuse?: No - Immunizations Immunizations are current?: Yes - POLST Patient has POLST: No POLST Status: DNR PD ED PE EXPANDED - General General: Alert, No acute distress, Other (Thin cachectic chronically ill-appeari ng female) - Neck Neck: Supple w/out meningeal sx. No: Adenopathy - Cardiac Cardiac: Murmur Present, Radial strong equal, Pedal strong equal, Cap refill < 2 sec, Other (Paced cardiac rhythm) - Respiratory Respiratory: Clear to ausultation jennifer. No: Distress, Labored - Abdomen Abdomen: Normal Bowel sounds, Tender to palpation (Mild nonfocal lower abdominal tenderness without guarding or rebound. No flank tenderness elicited no CVA tenderness.) - Back Back: Other (Significant tenderness of the posterior thoracic vertebrae as well as bilateral ribs secondary to history of previously known and chronic fractures) - Derm Derm: Normal color, Warm and dry. No: Rash - Extremities Extremities: Left arm (Chronic lymphedema most dominant below the elbow.) - Neuro Neuro: Alert and Oriented X 3, CNII-XII intact - GCS Eye Opening: Spontaneous Motor: Obeys Commands Verbal: Oriented Total: 15 Results - Vitals Vitals: Vital Signs - 24 hr 03/03/21 03/03/21 03/03/21 11:17 13:14 16:02 Temperature 36.4 C L 36.2 C L Heart Rate 70 70 70 Respiratory 16 63 H 14 Rate Blood Pressure 149/77 H 138/76 H 132/100 H O2 Saturation 96 97 95 Oxygen O2 Source Room air - Labs Labs: Laboratory Tests 03/03/21 03/03/21 03/03/21 13:02 13:02 13:02 WBC 7.8 RBC 5.53 H Hgb 15.8 Hct 49.9 H MCV 90.2 MCH 28.6 MCHC 31.7 L RDW 20.0 H Plt Count 193 MPV 9.6 Neut # (Auto) 5.7 Lymph # (Auto) 1.3 L [place] # (Auto) 0.6 Eos # (Auto) 0.1 Baso # (Auto) 0.0 Absolute Nucleated RBC 0.00 Nucleated RBC % 0.0 Sodium 141 Potassium 4.0 Chloride 102 Carbon Dioxide 29 Anion Gap 10.0 BUN 21 H Creatinine 1.2 H Estimated GFR (MDRD) 43 L Glucose 94 Calcium 9.4 Total Bilirubin 1.3 H AST 39 ALT 23 Alkaline Phosphatase 144 H B-Natriuretic Peptide 1129 H Total Protein 7.2 Albumin 3.6 Globulin 3.6 Albumin/Globulin Ratio 1.0 Lipase 31 Urine Color Urine Clarity Urine pH Ur Specific [place] Urine Protein Urine Glucose (UA) Urine Ketones Urine Occult Blood Urine Nitrite Urine Bilirubin Urine Urobilinogen Ur Leukocyte Esterase Urine RBC Urine WBC Ur Squamous Epith Cells Urine Crystals Urine Bacteria Urine Mucus Ur Microscopic Review Urine Culture Comments 03/03/21 15:48 WBC RBC Hgb Hct MCV MCH MCHC RDW Plt Count MPV Neut # (Auto) Lymph # (Auto) [place] # (Auto) Eos # (Auto) Baso # (Auto) Absolute Nucleated RBC Nucleated RBC % Sodium Potassium Chloride Carbon Dioxide Anion Gap BUN Creatinine Estimated GFR (MDRD) Glucose Calcium Total Bilirubin AST ALT Alkaline Phosphatase B-Natriuretic Peptide Total Protein Albumin Globulin Albumin/Globulin Ratio Lipase Urine Color DARK YELLOW Urine Clarity CLEAR Urine pH 5.0 Ur Specific [place] 1.025 Urine Protein 30 H Urine Glucose (UA) NEGATIVE Urine Ketones TRACE Urine Occult Blood NEGATIVE Urine Nitrite NEGATIVE Urine Bilirubin NEGATIVE Urine Urobilinogen 0.2 (NORMAL) Ur Leukocyte Esterase NEGATIVE Urine RBC None Seen Urine WBC 0-3 Ur Squamous Epith Cells FEW Squamous Urine Crystals 0-2 Calcium Oxalate Urine Bacteria Rare Urine Mucus Few Strands Ur Microscopic Review INDICATED Urine Culture Comments NOT INDICATED - Rads (name of study) CXR Radiology: Final report received (Stable left-sided pleural fluid collection. Stable left basilar consolidation which could represent atelectasis, aspiration or pneumonia. Resolving right basilar opacification) PD MEDICAL DECISION MAKING - ED course Complexity details: reviewed results, re-evaluated patient, d/w patient ED course: 85-year-old female who is chronically debilitated secondary to history of congestive heart failure previous aortic valve replacement presents With concern that she has not had the ability to micturate for nearly 16 hours. On presentation she was alert and otherwise well-appearing. No abdominal tenderness was truly elicited. A bladder scan showed a paltry 23 mL of fluid. Her BNP remains elevated at just over 1100 but this seems to be within the range that she typically is. Screening chest x-ray suggested previous opacification the right lower lobe had begun to resolve. Labs indicate however that she is likely somewhat dry given mildly elevated BUN. She was repleted with 1500 mL of fluid following that she was able to micturate. She has been normotensive during the entirety of this ED stay. She does continue to report that she is often nauseated and coughs or vomits after eating. I will prescribe some Zofran to assist with this. Departure - Departure Disposition: Home, Self Care Clinical Impression: Dehydration CHF (congestive heart failure) Qualifiers: Heart failure type: other Qualified Code(s): I50.9 - Heart failure, unspecified Prescriptions: Ondansetron Odt [Zofran] 4 mg TL Q6H PRN #30 tablet PRN Reason: Nausea / Vomiting Comments: Daja you are seen in the ER today for an inability to urinate since last night. In the labs that we obtained today as well as the chest x-ray it suggest that you are likely a little bit dehydrated. In person such as yourself who have heart failure as well as valve replacement it can be difficult to manage the volume status with the diuretics that you take. I do recommend that you continue to take the diuretics that you are however if you go more than 12 hours without urinating I would recommend that you increase your water intake and perhaps hold a dose or 2 of the spironolactone or the Lasix. To help with the nausea I am prescribing some Zofran. You can take this 2-3 times a day as needed. I recommend that you sip fluids frequently and eat small bites and snacks instead of larger meals. Return to the ER if you feel that your symptoms are not improving
--- NOTE | 2021-03-03 12:14 | XRAY Report ---
PROCEDURE: Chest 1 View X-Ray INDICATIONS: chest pain TECHNIQUE: One view of the chest was acquired. COMPARISON: 02/22/2021 FINDINGS: Surgical changes and devices: Right chest AICD, cardiac output aortic valve prosthesis, median sterno [place] wires and engine monitor device are stable compared to prior exam. Lungs and pleura: Left-sided pleural fluid collection not significantly changed in size compared to . Consolidation left lung base is not significantly changed. There is improved aeration of the right lung base compared to the prior exam. Mediastinum: Mediastinal contours appear normal. Heart is enlarged. Bones and chest wall: Chronic bilateral rib fractures which have healed with deformity are stable. L eft clavicular fracture is stable compared to the prior exam. No suspicious bony lesions. Overlying soft tissues appear unremarkable. IMPRESSION: 1. Stable left-sided pleural fluid collection. 2. Stable left basilar consolidation which could represent compressive atelectasis, aspiration or pne umonia. 3. Resolving right basilar opacification. Reviewed by: Holli Rubio MD, PhD on 03/03/2021 12:13 PM PDT Approved by: Holli Rubio MD, PhD on 03/03/2021 12:13 PM PDT Station ID: [id number]
[2021-03-03] MEDS ORDERED: LIDOCAINE 1% 2 ML VIAL ONE (12:47)
[2021-03-03 13:19] LABS: BASOPHILS % (AUTO) 0.4 %; EOSINOPHILS # (AUTO) 0.1 10^3/uL (0.0-0.7); HCT - HEMATOCRIT 49.9 % (37.0-47.0); HGB - HEMOGLOBIN 15.8 g/dL (12.0-16.0); LYMPHOCYTES # (AUTO) 1.3 10^3/uL (1.5-3.5); LYMPHOCYTES % (AUTO) 17.2 %; MEAN CORPUSCULAR HEMOGLOBIN 28.6 pg (27.0-31.0); MEAN CORPUSCULAR HGB CONC 31.7 g/dL (32.0-36.0); MEAN CORPUSCULAR VOLUME 90.2 fL (81.0-99.0); MEAN PLATELET VOLUME 9.6 fL (7.9-10.8); MONOCYTES # (AUTO) 0.6 10^3/uL (0.0-1.0); MONOCYTES % (AUTO) 7.3 %; NEUTROPHILS # (AUTO) 5.7 10^3/uL (1.5-6.6); NEUTROPHILS % (AUTO) 73.7 %; PLT - PLATELET COUNT 193 10^3/uL (130-450); RED BLOOD COUNT 5.53 10^6/uL (4.20-5.40); WHITE BLOOD COUNT 7.8 x10^3/uL (4.8-10.8)
[2021-03-03 13:34] LABS: ALBUMIN 3.6 g/dL (3.2-5.5); BILIRUBIN,TOTAL 1.3 mg/dL (0.2-1.0); CALCIUM 9.4 mg/dL (8.5-10.3); CREATININE 1.2 mg/dL (0.4-1.0); TOTAL PROTEIN 7.2 g/dL (6.7-8.2)
--- NOTE | 2021-03-03 13:55 | CONSULTATION NOTE ---
Consultation Report: Called for IV start, 20g 2.25 accucath started under ultrasound in right basilic nicho.
[2021-03-03] MEDS ORDERED: SODIUM CHLORIDE 0.9% 500 ML IV STA (14:50)
[2021-03-03 15:58] LABS: BILIRUBIN,URINE NEGATIVE (NEGATIVE); CLARITY,URINE CLEAR (CLEAR); GLUCOSE, URINE (UA) NEGATIVE (NEGATIVE); KETONES,URINE (UA) TRACE mg/dL (NEGATIVE); LEUKOCYTE ESTERASE, URINE NEGATIVE (NEGATIVE); NITRITE,URINE NEGATIVE (NEGATIVE); OCCULT BLOOD,URINE NEGATIVE (NEGATIVE); PROTEIN,URINE 30 mg/dL (NEGATIVE); UROBILINOGEN,URINE 0.2 (NORMAL) E.U./dL (NORMAL)
[2021-03-03 16:03] VITALS: BP 132/100
[2021-03-03 16:12] LABS: BACTERIA,URINE Rare /HPF (None Seen); RBC,URINE None Seen /HPF (0-5); SQUAMOUS EPITHELIAL CELL,UR FEW Squamous (<= Few); WBC,URINE 0-3 /HPF (0-5)
[2021-03-03 16:13] LABS: MUCUS,URINE Few Strands
== END 2021-03-03 17:34 | disposition home or self-care (01) ==
LOC: EDUNIT# → ED 11:16
DX: E86.0 Dehydration (principal); I50.9 Heart failure, unspecified; I11.0 Hypertensive heart disease with heart failure; I48.91 Unspecified atrial fibrillation; Z79.01 Long term (current) use of anticoagulants; Z95.0 Presence of cardiac pacemaker; Z95.2 Presence of prosthetic heart valve
CPT/HCPCS: 36415; 51798; 80053; 81001; 81003; 83690; 83880; 85025; 85610; 87086; 96360; 96361; 99284

== ENCOUNTER 2021-04-05 10:03 | Day surgery (SDC) | payer MEDICARE ==
[2021-04-05] MEDS ORDERED: LACTATED RINGERS 1,000 ML IV ONE ×2 (10:18→12:06)
--- NOTE | 2021-04-05 10:59 | ANESTHESIA ---
Pre-Anesthesia VS, & Labs - Diagnosis failure to thrive - Procedure EGD Vital Signs: Temp Pulse Resp BP Pulse Ox 36.8 C 70 14 132/64 H 98 04/05/21 10:18 04/05/21 10:18 04/05/21 10:18 04/05/21 10:18 04/05/21 10:18 Height: 4 ft 10 in Weight (kg): 33 kg Body Mass Index: 15.2 BMI Classification: Underweight - NPO >8 hours - Is Patient ?: No Home Medications and Allergies Home Medications: Ambulatory Orders Spironolactone [Aldactone] 12.5 mg OP DAILY 04/05/21 Atorvastatin [Lipitor] 10 mg PO QPM 05/16/16 Cholecalciferol (Vitamin D3) [Vitamin D3] 5,000 unit PO MOWEFR 05/16/16 Albuterol Sulf [Ventolin Hfa Inhaler] 2 puffs INH PRN PRN 02/21/21 Losartan Potassium 25 mg PO DAILY 02/21/21 Metoprolol Succinate 100 mg PO BID 02/21/21 Potassium Chloride [Klor-Con 10] 10 meq PO BIDWM 02/21/21 Warfarin Sodium [Coumadin] 2 mg PO DAILY 02/21/21 Spironolactone [Aldactone] 12.5 mg OP DAILY 04/05/21 Allergies/Adverse Reactions: Allergies Allergy/AdvReac Type Severity Reaction Status Date / Time codeine AdvReac Unknown Nausea Verified 03/03/21 11:31 Anes History & Medical History - Anesthetic History Anesthesia Complications: reports: No previous complications - Medical History Cardiovascular: reports: Congestive heart failure, Hypertension, High c holesterol, Atrial fibrillation, Other Pulmonary: reports: Other Gastrointestinal: reports: None Urinary: reports: None Neuro: reports: Peripheral neuropathy Musculoskeletal: reports: Osteoporosis, Other Endocrine/Autoimmune: reports: None Blood Disorders: reports: None Skin: reports: None Smoking Status: Never smoker - Surgical History General: reports: Appendectomy Cardiothoracic: reports: Valve replacement, Pacemaker Gynecologic: reports: Mastectomy Exam General: Alert, Oriented x3 Mouth Opening: Greater than 4 Fingerbreadths Mallampati classification: II Thyromental Distance: greater than 6 cm Respiratory: Lungs clear Cardiovascular: Regular rate Plan Anesthesia Type: Total IV Consent for Procedure(s) Verified and Reviewed: Yes Code Status: Do Not Attempt Resuscitation (patient requests DNR honored during procedure, Dr. Meléndez aware. Agrees to proceed.) ASA classification: 3-Severe systemic disease Is this case an emergency?: No
[2021-04-05] MEDS ORDERED: LIDOCAINE-MPF 2% 5 ML VIAL ONE (11:16)
[2021-04-05 12:32] VITALS: BP 166/73
--- NOTE | 2021-04-05 14:10 | ANESTHESIA POST OP EVALUATION ---
Anesthesia Post Eval - Post Anesthesia Eval Vitals: Last Vital Signs Temp 98.2 C H 04/05/21 12:30 Pulse 70 04/05/21 12:30 Resp 28 H 04/05/21 12:30 BP 166/73 H 04/05/21 12:30 Pulse Ox 96 04/05/21 12:30 CV Function Including HR & BP: Stable Pain Control: Satisfactory Nausea & Vomiting: Negative Mental Status: Baseline Respiratory Status: Airway Patent Hydration Status: Satisfactory Anesthesia Complications: None
== END 2021-04-05 10:04 | disposition home or self-care (01) ==
LOC: SDS 10:03
PROVIDERS: ATTEND Surgery
PROC: 0DB78ZX Excision of Stomach, Pylorus, Via Natural or Artificial Opening Endoscopic, Diagnostic (ICD-10-PCS; 2021-04-05)
PROC: 0DB28ZX Excision of Middle Esophagus, Via Natural or Artificial Opening Endoscopic, Diagnostic (ICD-10-PCS; 2021-04-05)
PROC: 0DB48ZX Excision of Esophagogastric Junction, Via Natural or Artificial Opening Endoscopic, Diagnostic (ICD-10-PCS; 2021-04-05)
PROC: 0DB98ZX Excision of Duodenum, Via Natural or Artificial Opening Endoscopic, Diagnostic (ICD-10-PCS; principal; 2021-04-05 11:00)
DX: K26.9 Duodenal ulcer, unspecified as acute or chronic, without hemorrhage or perforation (principal); R62.7 Adult failure to thrive; R63.4 Abnormal weight loss; K29.70 Gastritis, unspecified, without bleeding; Z68.1 Body mass index [BMI] 19.9 or less, adult; R63.0 Anorexia; I11.0 Hypertensive heart disease with heart failure; I50.9 Heart failure, unspecified; I48.91 Unspecified atrial fibrillation; I25.10 Atherosclerotic heart disease of native coronary artery without angina pectoris; E78.00 Pure hypercholesterolemia, unspecified; Z95.0 Presence of cardiac pacemaker; Z79.01 Long term (current) use of anticoagulants; Z79.899 Other long term (current) drug therapy; Z95.2 Presence of prosthetic heart valve; Z95.1 Presence of aortocoronary bypass graft
CPT/HCPCS: 43239; J7120

== ENCOUNTER 2021-05-05 13:47 | Outpatient (CLI) | payer MEDICARE ==
[2021-05-05 13:50] LABS: BASOPHILS % (AUTO) 0.5 %; EOSINOPHILS # (AUTO) 0.1 10^3/uL (0.0-0.7); EOSINOPHILS % (AUTO) 1.2 %; HCT - HEMATOCRIT 48.3 % (37.0-47.0); HGB - HEMOGLOBIN 15.1 g/dL (12.0-16.0); LYMPHOCYTES % (AUTO) 12.1 %; MEAN CORPUSCULAR HEMOGLOBIN 30.4 pg (27.0-31.0); MEAN CORPUSCULAR HGB CONC 31.3 g/dL (32.0-36.0); MEAN CORPUSCULAR VOLUME 97.4 fL (81.0-99.0); MEAN PLATELET VOLUME 9.6 fL (7.9-10.8); MONOCYTES # (AUTO) 0.6 10^3/uL (0.0-1.0); MONOCYTES % (AUTO) 7.6 %; NEUTROPHILS # (AUTO) 6.3 10^3/uL (1.5-6.6); NEUTROPHILS % (AUTO) 78.1 %; PLT - PLATELET COUNT 174 10^3/uL (130-450); RED BLOOD COUNT 4.96 10^6/uL (4.20-5.40); RED CELL DISTRIBUTION WIDTH 17.7 % (12.0-15.0); WHITE BLOOD COUNT 8.1 x10^3/uL (4.8-10.8)
[2021-05-05 14:00] LABS: CALCIUM 9.8 mg/dL (8.5-10.3); POTASSIUM 5.6 mmol/L (3.5-5.0)
== END 2021-05-05 23:59 | disposition home or self-care (01) ==
LOC: LAB 13:47
PROVIDERS: ATTEND Specialist
DX: M86.9 Osteomyelitis, unspecified (principal); I10 Essential (primary) hypertension; I48.0 Paroxysmal atrial fibrillation; Z79.899 Other long term (current) drug therapy; D69.6 Thrombocytopenia, unspecified; N28.9 Disorder of kidney and ureter, unspecified
CPT/HCPCS: 36415; 80048; 83735; 85025

== ENCOUNTER 2021-05-16 16:21 | Outpatient (CLI) | payer MEDICARE ==
[2021-05-16 17:00] LABS: ALBUMIN 3.3 g/dL (3.2-5.5); BILIRUBIN,TOTAL 1.5 mg/dL (0.2-1.0); CALCIUM 9.3 mg/dL (8.5-10.3); CREATININE 1.1 mg/dL (0.4-1.0); POTASSIUM 3.8 mmol/L (3.5-5.0); TOTAL PROTEIN 6.7 g/dL (6.7-8.2)
== END 2021-05-16 16:22 | disposition home or self-care (01) ==
LOC: LAB 16:21
PROVIDERS: ATTEND Specialist
DX: I51.9 Heart disease, unspecified (principal); I48.0 Paroxysmal atrial fibrillation
CPT/HCPCS: 36415; 80053; 83735

== ENCOUNTER 2021-06-25 14:21 | Outpatient (CLI) | payer MEDICARE ==
[2021-06-25 14:48] LABS: ALBUMIN 3.6 g/dL (3.2-5.5); BILIRUBIN,TOTAL 1.4 mg/dL (0.2-1.0); CALCIUM 10.3 mg/dL (8.5-10.3); CREATININE 1.4 mg/dL (0.4-1.0); TOTAL PROTEIN 7.3 g/dL (6.7-8.2)
== END 2021-06-25 14:22 | disposition home or self-care (01) ==
LOC: LAB 14:21
PROVIDERS: ATTEND Specialist
DX: I51.9 Heart disease, unspecified (principal); I48.0 Paroxysmal atrial fibrillation
CPT/HCPCS: 36415; 80053; 83735

== ENCOUNTER 2021-07-22 14:27 | Outpatient (CLI) | payer MEDICARE ==
[2021-07-22 15:05] LABS: ALBUMIN 3.6 g/dL (3.2-5.5); BILIRUBIN,TOTAL 1.3 mg/dL (0.2-1.0); CALCIUM 9.8 mg/dL (8.5-10.3); CREATININE 1.1 mg/dL (0.4-1.0); POTASSIUM 4.2 mmol/L (3.5-5.0); TOTAL PROTEIN 7.1 g/dL (6.7-8.2)
== END 2021-07-22 14:28 | disposition home or self-care (01) ==
LOC: LAB 14:27
PROVIDERS: ATTEND Specialist
DX: I48.0 Paroxysmal atrial fibrillation (principal); I51.9 Heart disease, unspecified
CPT/HCPCS: 36415; 80053; 83735

== ENCOUNTER 2021-08-23 08:00 | Outpatient (CLI) | payer MEDICARE ==
[2021-08-23 17:17] LABS: ALBUMIN 3.4 g/dL (3.2-5.5); ALKALINE PHOSPHATASE 163 IU/L (42-121); ALT ALANINE AMINOTRANSFERASE 23 IU/L (10-60); AST ASPARTATE AMINOTRANSFERASE 35 IU/L (10-42); BILIRUBIN,TOTAL 1.3 mg/dL (0.2-1.0); BUN - BLOOD UREA NITROGEN 25 mg/dL (6-20); CALCIUM 9.7 mg/dL (8.5-10.3); CARBON DIOXIDE - CO2 29 mmol/L (21-32); CHLORIDE 102 mmol/L (101-111); CHOL/HDL RATIO 2.5 (<4.4); CHOLESTEROL 153 mg/dL; GFR - MDRD 53 (>89); GLUCOSE 148 mg/dL (70-100); HDL CHOLESTEROL 61 mg/dL; LDL CHOLESTEROL,CALCULATED 68 mg/dL; LDL/HDL RATIO 1.1 (<4.4); MAGNESIUM 1.8 mg/dL (1.7-2.8); POTASSIUM 3.2 mmol/L (3.5-5.0); SODIUM 142 mmol/L (135-145); TOTAL PROTEIN 6.9 g/dL (6.7-8.2); TRIGLYCERIDES 118 mg/dL; VLDL CHOLESTEROL 24 mg/dL
[2021-08-23 17:34] LABS: BASOPHILS % (AUTO) 0.4 %; EOSINOPHILS # (AUTO) 0.2 10^3/uL (0.0-0.7); EOSINOPHILS % (AUTO) 2.7 %; HCT - HEMATOCRIT 40.7 % (37.0-47.0); HGB - HEMOGLOBIN 12.9 g/dL (12.0-16.0); LYMPHOCYTES # (AUTO) 1.1 10^3/uL (1.5-3.5); LYMPHOCYTES % (AUTO) 20.4 %; MEAN CORPUSCULAR HEMOGLOBIN 30.9 pg (27.0-31.0); MEAN CORPUSCULAR HGB CONC 31.7 g/dL (32.0-36.0); MEAN CORPUSCULAR VOLUME 97.6 fL (81.0-99.0); MONOCYTES # (AUTO) 0.6 10^3/uL (0.0-1.0); MONOCYTES % (AUTO) 10.8 %; NEUTROPHILS # (AUTO) 3.6 10^3/uL (1.5-6.6); NEUTROPHILS % (AUTO) 65.7 %; PLT - PLATELET COUNT 148 10^3/uL (130-450); RED BLOOD COUNT 4.17 10^6/uL (4.20-5.40); RED CELL DISTRIBUTION WIDTH 15.9 % (12.0-15.0); WHITE BLOOD COUNT 5.5 x10^3/uL (4.8-10.8)
[2021-08-23 19:10] LABS: INR 2.7 (0.8-1.2); PT - PROTHROMBIN TIME 29.6 secs (9.9-12.6)
[2021-08-24 07:41] LABS: AMYLASE 84 U/L (28-100); LIPASE 24 U/L (22-51)
== END 2021-08-23 23:59 ==
LOC: LAB.R 08:00
PROVIDERS: ATTEND Internal Medicine
DX: Z00.00 Encounter for general adult medical examination without abnormal findings (principal); I48.91 Unspecified atrial fibrillation; I11.0 Hypertensive heart disease with heart failure; I50.9 Heart failure, unspecified; I25.10 Atherosclerotic heart disease of native coronary artery without angina pectoris; C50.919 Malignant neoplasm of unspecified site of unspecified female breast; M81.0 Age-related osteoporosis without current pathological fracture
CPT/HCPCS: 80053; 80061; 82150; 82306; 83690; 83721; 83735; 83880; 84443; 85025; 85610

== ENCOUNTER 2021-11-24 09:01 | Day surgery (SDC) | payer MEDICARE ==
[~2021-11-24 09:01] MED LIST: BRIMONIDINE 0.2% OPHTH DROPS 5 ML ONE; BSS/LIDOCAINE/EPINEPHRINE 1 ML VIAL ONE; CYCLOPENTOLATE 1% OPHTH DROPS 2 ML ONE; EPINEPHrine 1 MG/ML AMP ONE; KETOROLAC 0.45% OPHTH DROPS ONE; LACTATED RINGERS 1,000 ML IV ONE; PHENYLEPHRINE 2.5% OPHTH 2 ML DROPS ONE; PROPARACAINE 0.5% OPHTH DROPS 15 ML ONE; TIMOLOL 0.5% OPHTH DROPS ONE; TRIAMCIN/MOXIFLOX OPHTHALMIC 0.6 ML VIAL IO ONE
[2021-11-24] MEDS ORDERED: MIDAZOLAM 2 MG/2 ML VIAL ONE (09:52)
--- NOTE | 2021-11-24 10:05 | ANESTHESIA ---
Pre-Anesthesia VS, & Labs - Diagnosis R cataract - Procedure R PhacoIOL Vital Signs: Temp Pulse Resp BP Pulse Ox 36.7 C 67 18 125/60 100 11/24/21 09:00 11/24/21 09:00 11/24/21 09:00 11/24/21 09:00 11/24/21 09:00 Height: 4 ft 10 in Weight (kg): 33.6 kg Body Mass Index: 15.5 BMI Classification: Underweight - NPO >8 hours - Is Patient ?: No Home Medications and Allergies Home Medications: Ambulatory Orders Furosemide [Lasix] 40 mg PO DAILY 11/23/21 Omeprazole 40 mg PO DAILY 11/23/21 Atorvastatin [Lipitor] 10 mg PO QPM 05/16/16 Cholecalciferol (Vitamin D3) [Vitamin D3] 5,000 unit PO MOWEFR 05/16/16 Albuterol Sulf [Ventolin Hfa Inhaler] 2 puffs INH PRN PRN 02/21/21 Losartan Potassium 25 mg PO DAILY 02/21/21 Metoprolol Succinate 100 mg PO BID 02/21/21 Potassium Chloride [Klor-Con 10] 10 meq PO BIDWM 02/21/21 Warfarin Sodium [Coumadin] 2 mg PO DAILY 02/21/21 Spironolactone [Aldactone] 12.5 mg OP DAILY 04/05/21 Furosemide [Lasix] 40 mg PO DAILY 11/23/21 Omeprazole 40 mg PO DAILY 11/23/21 Allergies/Adverse Reactions: Allergies Allergy/AdvReac Type Severity Reaction Status Date / Time codeine AdvReac Unknown Nausea Verified 11/24/21 09:38 Anes History & Medical History - Anesthetic History Anesthesia Complications: reports: No previous complications Family history of Anesthesia Complications: Denies Family history of Malignant Hyperthermia: Denies - Medical History Cardiovascular: reports: Congestive heart failure, Hypertension, High cholesterol, Atrial fibrillation, Other Pulmonary: reports: Other Gastrointestinal: reports: None Urinary: reports: None Neuro: reports: Peripheral neuropathy Musculoskeletal: reports: Osteoporosis, Other Endocrine/Autoimmune: reports: None Blood Disorders: reports: None Skin: reports: None Smoking Status: Never smoker - Surgical History General: reports: Appendectomy Cardiothoracic: reports: Valve replacement, Pacemaker Gynecologic: reports: Mastectomy Exam General: Alert, Oriented x3, Cooperative Dental: WNL Mouth Openin Fingerbreadth Neck Mobility: Normal Mallampati classification: I Thyromental Distance: less than 4 cm Respiratory: Lungs clear Cardiovascular: Other Plan Anesthesia Type: MAC Consent for Procedure(s) Verified and Reviewed: Yes Code Status: Attempt Resuscitation ASA classification: 3-Severe systemic disease Is this case an emergency?: No
[2021-11-24] MEDS ORDERED: EPINEPHrine 1 MG/ML AMP IR ONE (10:36)
[2021-11-24] MEDS ORDERED: BRIMONIDINE 0.2% OPHTH DROPS 5 ML OPTH ONE (10:36)
[2021-11-24] MEDS ORDERED: TIMOLOL 0.5% OPHTH DROPS OPTH ONE (10:36)
[2021-11-24] MEDS ORDERED: BSS/LIDOCAINE/EPINEPHRINE 1 ML SYRINGE IO ONE (10:37)
[2021-11-24] MEDS ORDERED: PROPARACAINE 0.5% OPHTH DROPS 15 ML EACHEYE ONE (10:37)
[2021-11-24] MEDS ORDERED: TRIAMCIN/MOXIFLOX OPHTHALMIC 0.6 ML VIAL IO ONE (10:37)
[2021-11-24] MEDS ORDERED: VANCOMYCIN OPHTHALMI 8MG/0.8ML 8 MG/0.8 ML SYRINGE IO ONE (10:38)
[2021-11-24] MEDS ORDERED: LACTATED RINGERS 1,000 ML IV ONE (10:45)
--- NOTE | 2021-11-24 10:56 | OPERATIVE REPORT ---
Operative Report - Other Other Information/Narrative: Date of Surgery: 11/24/21 Preop Dx: Visually significant cataract right eye. Cataract surgery was performed in the left eye on . Postop Dx: Same Procedure: Phacoemulsification with posterior chamber intraocular lens implant right eye Surgeon: Dr. Javed Espinoza Anesthesia: Monitored anesthesia care Complications: None Operative Indications: This is a 86-year-old F with progressive vision loss in the right eye due to 3+ nuclear sclerotic, 2+ cortical, and 1+ posterior subcapsular cataract. Best corrected visual acuity was 20/70 with glare to hand motion vision in the right eye. Indications for surgery were: - Difficulty seeing words on a computer screen - Difficulty reading - Difficulty with glare or bright lights in any situation The patient was consented at length concerning the risks and benefits of cataract surgery after which the patient expressed a desire to proceed with surgery. Operative Procedure: The patient was taken into OR#3 and placed under monitored anesthesia care. A surgical time-out was conducted confirming correct patient, correct procedure, and correct surgical site. The patient was given topical anesthesia and then prepped and draped in the usual sterile fashion. The eye was entered at the 6 and 3 oclock positions. Intracameral Shugarcaine was injected into the anterior chamber followed by a dispersive viscoelastic. A continuous-tear curvilinear capsulorhexis was performed. The nucleus was hydrodissected and phacoemulsified. The cortex was evacuated using automated infusion and aspiration. A cohesive viscoelastic was injected into the capsular bag and a 18.0 diopter intraocular lens was inserted into the bag. Infusion and aspiration were used to evacuate the viscoelastic materials from the eye. The wounds were hydrated and the eye inflated to physiologic pressure using balanced salt solution. Approximately 0.25ml of a mixture of triamcinolone and moxifloxacin was injected trans-sclerally into the vitreous in the inferotemporal quadrant using a 30 gauge cannula. An additional 0.55ml of a mixture of triamcinolone, moxifloxacin, and vancomycin was injected subconjunctivally in the superior quadrant for infection and inflammation prophylaxis. Wound integrity was checked with Weck-Aline sponges. The patient was taken from the operating room in good condition and given post-op instructions.
[2021-11-24 11:17] VITALS: BP 114/48
--- NOTE | 2021-11-24 15:00 | ANESTHESIA POST OP EVALUATION ---
Anesthesia Post Eval - Post Anesthesia Eval Vitals: Last Vital Signs Temp 36.4 C L 11/24/21 11:16 Pulse 65 11/24/21 11:16 Resp 22 11/24/21 11:16 BP 114/48 L 11/24/21 11:16 Pulse Ox 100 11/24/21 11:16 CV Function Including HR & BP: Stable Pain Control: Satisfactory Nausea & Vomiting: Negative Mental Status: Baseline Respiratory Status: Airway Patent Hydration Status: Satisfactory Anesthesia Complications: None
== END 2021-11-24 09:02 | disposition home or self-care (01) ==
LOC: SDS 09:01
PROVIDERS: ATTEND Ophthalmology
DX: H25.811 Combined forms of age-related cataract, right eye (principal); R63.6 Underweight; Z68.1 Body mass index [BMI] 19.9 or less, adult; I48.91 Unspecified atrial fibrillation; I11.0 Hypertensive heart disease with heart failure; I50.9 Heart failure, unspecified; Z98.42 Cataract extraction status, left eye
CPT/HCPCS: 66984; A9270; J3490; J7120

== ENCOUNTER 2021-12-21 08:00 | Outpatient (CLI) | payer MEDICARE | END 2021-12-23 14:20 | disposition home or self-care (01) | LOC: LAB 08:00 | PROVIDERS: ATTEND Specialist | DX: E78.00 Pure hypercholesterolemia, unspecified (principal) | CPT/HCPCS: 83704 ==

== ENCOUNTER 2021-12-21 12:35 | Emergency (ER) | payer MEDICARE ==
[2021-12-21] MEDS ORDERED: SODIUM CHLORIDE 0.9% 1,000 ML IV STA (13:02)
[2021-12-21] MEDS ORDERED: PANTOPRAZOLE 40 MG VIAL IVP STA (13:06)
[2021-12-21] MEDS ORDERED: ONDANSETRON 4 MG/2 ML VIAL IVP STA (13:07)
--- NOTE | 2021-12-21 13:08 | ED Physician Documentation ---
History of Present Illness - Stated complaint Stated Complaint: NAUSEA,WEAKNESS - Chief complaint Chief Complaint: General - History obtained from History obtained from: Patient - History of Present Illness Pain level max: 0 Pain level now: 0 - Additonal information Additional information: 86 year old female states that she has been unable to tolerate PO x 3 months. She states that she had been able to keep "boost shakes" down, but now she is vomiting that as well. She states that this is never happened to her before. She states she has told her doctor but no work-up has been done. No diarrhea or constipation. No fevers. No chills. Has epigastric abdominal pain as well. She states that she is taking her medications as prescribed when she can keep them down. A review of her records shows that she had similar symptoms about a year ago and had an EGD at that time which showed gastric ulcers. Review of Systems Ten Systems: 10 systems reviewed and negative Constitutional: denies: Fever, Chills GI: reports: Abdominal Pain (epigastric), Nausea, Vomiting Skin: denies: Rash Musculoskeletal: denies: Neck pain, Back pain Neurologic: denies: Headache PD PAST MEDICAL HISTORY - Past Medical History Past Medical History: Yes Cardiovascular: Congestive heart failure, Hypertension, High cholesterol, Atrial fibrillation, Other Respiratory: Other Neuro: Peripheral neuropathy Endocrine/Autoimmune: None GI: None [employer] PRO[employer] DIRECTOR: Breast cancer : None HEENT: None Psych: None Musculoskeletal: Osteoporosis, Other Derm: None - Past Surgical History Past Surgical History: Yes General: Appendectomy /[employer] DIRECTOR: Mastectomy Cardiovascular: Valve replacement, Pacemaker - Present Medications Home Medications: Ambulatory Orders Medication Instructions Recorded Confirmed Atorvastatin [Lipitor] 10 mg PO QPM 05/16/16 11/24/21 Cholecalciferol (Vitamin D3) 5,000 unit PO MOWEFR 05/16/16 11/24/21 [Vitamin D3] Albuterol Sulf [Ventolin Hfa 2 puffs INH PRN PRN 02/21/21 11/23/21 Inhaler] Losartan Potassium 25 mg PO DAILY 02/21/21 11/23/21 Metoprolol Succinate 100 mg PO BID 02/21/21 11/24/21 Potassium Chloride [Klor-Con 10] 10 meq PO BIDWM 02/21/21 11/23/21 Warfarin Sodium [Coumadin] 2 mg PO DAILY 02/21/21 11/23/21 Spironolactone [Aldactone] 12.5 mg OP DAILY 04/05/21 11/24/21 Furosemide [Lasix] 40 mg PO DAILY 11/23/21 11/24/21 Omeprazole 40 mg PO DAILY 11/23/21 11/24/21 Famotidine [Pepcid] 20 mg PO BID #60 tablet 12/21/21 Ondansetron Odt [Zofran] 4 mg TL Q6H PRN #10 tablet 12/21/21 Sucralfate [Carafate] 1 gm PO ACHS #60 tablet 12/21/21 - Allergies Allergies/Adverse Reactions: Allergies Allergy/AdvReac Type Severity Reaction Status Date / Time codeine AdvReac Unknown Nausea Verified 12/21/21 12:49 - Social History Does the pt smoke?: No Smoking Status: Never smoker Does the pt drink ETOH?: Yes Does the pt have substance abuse?: No - Immunizations Immunizations are current?: Yes - POLST Patient has POLST: No POLST Status: DNR PD ED PE NORMAL - Vitals Vital signs reviewed: Yes - General General: Alert and oriented X 3, No acute distress - HEENT HEENT: Moist mucous membranes - Cardiac Cardiac: RRR, Strong equal pulses - Respiratory Respiratory: No respiratory distress, Clear bilaterally - Abdomen Abdomen: Soft, Non distended, Other (TTP epigastric with no peritoneal signs) - Back Back: No CVA TTP, No spinal TTP - Derm Derm: Warm and dry - Extremities Extremities: No edema, No calf tenderness / cord - Neuro Neuro: Alert and oriented X 3 - Psych Psych: Normal mood, Normal affect Results - Vitals Vitals: Vital Signs - 24 hr 12/21/21 12/21/21 12/21/21 12:44 12:59 15:09 Temperature 36.7 C 36.1 C L Heart Rate 82 79 70 Respiratory 20 16 14 Rate Blood Pressure 107/62 116/64 O2 Saturation 96 100 99 Oxygen O2 Source Room air - Labs Labs: Laboratory Tests 12/21/21 12/21/21 12/21/21 13:29 13:29 13:29 WBC 6.0 RBC 4.42 Hgb 14.3 Hct 42.5 MCV 96.2 MCH 32.4 H MCHC 33.6 RDW 14.6 Plt Count 193 MPV 10.1 Neut # (Auto) 4.1 Lymph # (Auto) 1.3 L [place] # (Auto) 0.6 Eos # (Auto) 0.1 Baso # (Auto) 0.0 Absolute Nucleated RBC 0.00 Nucleated RBC % 0.0 PT 29.6 H INR 2.7 H Sodium 140 Potassium 4.6 Chloride 100 L Carbon Dioxide 28 Anion Gap 12.0 BUN 72 H Creatinine 1.4 H Estimated GFR (MDRD) 36 L Glucose 96 Calcium 9.9 Phosphorus 3.3 Magnesium 2.5 Total Bilirubin 1.1 H AST 49 H ALT 43 Alkaline Phosphatase 160 H Total Protein 7.3 Albumin 3.5 Globulin 3.8 Albumin/Globulin Ratio 0.9 L Lipase 36 Urine Color Urine Clarity Urine pH Ur Specific [place] Urine Protein Urine Glucose (UA) Urine Ketones Urine Occult Blood Urine Nitrite Urine Bilirubin Urine Urobilinogen Ur Leukocyte Esterase Ur Microscopic Review Urine Culture Comments 12/21/21 14:00 WBC RBC Hgb Hct MCV MCH MCHC RDW Plt Count MPV Neut # (Auto) Lymph # (Auto) [place] # (Auto) Eos # (Auto) Baso # (Auto) Absolute Nucleated RBC Nucleated RBC % PT INR Sodium Potassium Chloride Carbon Dioxide Anion Gap BUN Creatinine Estimated GFR (MDRD) Glucose Calcium Phosphorus Magnesium Total Bilirubin AST ALT Alkaline Phosphatase Total Protein Albumin Globulin Albumin/Globulin Ratio Lipase Urine Color YELLOW Urine Clarity CLEAR Urine pH 6.5 Ur Specific [place] 1.010 Urine Protein NEGATIVE Urine Glucose (UA) NEGATIVE Urine Ketones NEGATIVE Urine Occult Blood NEGATIVE Urine Nitrite NEGATIVE Urine Bilirubin NEGATIVE Urine Urobilinogen 0.2 (NORMAL) Ur Leukocyte Esterase NEGATIVE Ur Microscopic Review NOT INDICATED Urine Culture Comments NOT INDICATED - Rads (name of study) CT abd/pelvis Radiology: Final report received, EMP read contemporaneously, See rad report PD MEDICAL DECISION MAKING - ED course Complexity details: reviewed results, re-evaluated patient, considered differential, d/w patient ED course: 86-year-old female with reported inability to tolerate p.o. over the past several months. She was given a GI cocktail, IV Protonix. As well as Zofran. She is tolerating p.o. without difficulty here. She was given IV fluids. Her CT scan does not show any acute abnormalities. We will trial her on Carafate and Pepcid as well as Zofran at home to see if this improves her symptoms. She can follow-up with her doctor for further care. Patient counseled regarding signs and symptoms for which I believe and urgent re-evaluation would be necessary. Patient with good understanding of and agreement to plan and is co mfortable going home at this time This document was made in part using voice recognition software. While efforts are made to proofread this document, sound alike and grammatical errors may occur. IMPRESSION: 1. No evidence of metastatic disease in the abdomen and pelvis. 2. No evidence of acute abdominal process. 3. Cardiomegaly, valve prosthesis, coronary artery disease, pacemaker. 4. Diverticulosis without evidence of diverticulitis. Departure - Departure Disposition: Home, Self Care Clinical Impression: Gastritis Qualifiers: Gastritis type: unspecified gastritis Chronicity: unspecified Gastritis bleeding: without bleeding Qualified Code(s): K29.70 - Gastritis, unspecified, without bleeding Condition: Good Instructions: ED PUD Vs Gastritis Follow-Up: Jasmin Garland MD [Primary Care Provider] - Within 1 week Prescriptions: Sucralfate [Carafate] 1 gm PO ACHS #60 tablet Famotidine [Pepcid] 20 mg PO BID #60 tablet Ondansetron Odt [Zofran] 4 mg TL Q6H PRN #10 tablet PRN Reason: Nausea / Vomiting Comments: Please follow-up with your doctor for further care. Your laboratory testing does not show any acute abnormalities today. Your prescriptions were sent to the [facility] pharmacy. Your EGD last year showed gastric ulcers, your doctor may want to consider repeating this to see if they have healed or if they are worsening again causing your similar symptoms to last year.
[2021-12-21] MEDS ORDERED: IOPAMIDOL-300 100 ML VIAL ONE (13:20)
[2021-12-21 13:39] LABS: BASOPHILS % (AUTO) 0.3 %; EOSINOPHILS # (AUTO) 0.1 10^3/uL (0.0-0.7); EOSINOPHILS % (AUTO) 1.8 %; HCT - HEMATOCRIT 42.5 % (37.0-47.0); HGB - HEMOGLOBIN 14.3 g/dL (12.0-16.0); LYMPHOCYTES # (AUTO) 1.3 10^3/uL (1.5-3.5); LYMPHOCYTES % (AUTO) 21.1 %; MEAN CORPUSCULAR HEMOGLOBIN 32.4 pg (27.0-31.0); MEAN CORPUSCULAR HGB CONC 33.6 g/dL (32.0-36.0); MEAN CORPUSCULAR VOLUME 96.2 fL (81.0-99.0); MEAN PLATELET VOLUME 10.1 fL (7.9-10.8); MONOCYTES # (AUTO) 0.6 10^3/uL (0.0-1.0); MONOCYTES % (AUTO) 9.3 %; NEUTROPHILS # (AUTO) 4.1 10^3/uL (1.5-6.6); NEUTROPHILS % (AUTO) 67.3 %; PLT - PLATELET COUNT 193 10^3/uL (130-450); RED BLOOD COUNT 4.42 10^6/uL (4.20-5.40); RED CELL DISTRIBUTION WIDTH 14.6 % (12.0-15.0)
[2021-12-21 13:47] LABS: INR 2.7 (0.8-1.2); PT - PROTHROMBIN TIME 29.6 secs (9.9-12.6)
[2021-12-21 13:53] LABS: ALBUMIN 3.5 g/dL (3.2-5.5); ALBUMIN/GLOBULIN RATIO 0.9 (1.0-2.2); BILIRUBIN,TOTAL 1.1 mg/dL (0.2-1.0); CALCIUM 9.9 mg/dL (8.5-10.3); CREATININE 1.4 mg/dL (0.4-1.0); MAGNESIUM 2.5 mg/dL (1.7-2.8); PHOSPHORUS 3.3 mg/dL (2.5-4.6); POTASSIUM 4.6 mmol/L (3.5-5.0); TOTAL PROTEIN 7.3 g/dL (6.7-8.2)
[2021-12-21 14:10] LABS: BILIRUBIN,URINE NEGATIVE (NEGATIVE); GLUCOSE, URINE (UA) NEGATIVE (NEGATIVE); KETONES,URINE (UA) NEGATIVE (NEGATIVE); LEUKOCYTE ESTERASE, URINE NEGATIVE (NEGATIVE); NITRITE,URINE NEGATIVE (NEGATIVE); OCCULT BLOOD,URINE NEGATIVE (NEGATIVE); PH,URINE 6.5 PH (5.0-7.5); PROTEIN,URINE NEGATIVE (NEGATIVE); UROBILINOGEN,URINE 0.2 (NORMAL) E.U./dL (NORMAL)
[2021-12-21 14:11] LABS: CLARITY,URINE CLEAR (CLEAR)
--- NOTE | 2021-12-21 15:16 | CT Report ---
PROCEDURE: Abdomen/Pelvis W INDICATIONS: diffuse abd pain, vomiting CONTRAST: IV CONTRAST: Isovue 300 ml: 60 PO CONTRAST: *NO PO CONTRAST TECHNIQUE: After the administration of oral and intravenous contrast, 5 mm thick sections acquired from the diap hragms to the symphysis. 5 mm thick coronal and sagittal reformats were acquired. For radiation dos e reduction, the following was used: automated exposure control, adjustment of mA and/or kV accordin g to patient size. COMPARISON: 08/23/2020 FINDINGS: Image quality: Excellent. ABDOMEN: Lung bases: Lung bases are clear. Cardiomegaly, aortic valve prostheses, aortic root dilatation, pac emaker, advanced coronary artery calcifications. (Surgically absent. Solid organs: Liver and spleen are normal in size and enhancement. Gallbladder is diffusely contrac nelli, within normal limits Biliary system is non dilated. Pancreas enhances normally. No adrenal no dules. Kidneys demonstrate normal size and enhancement, without hydronephrosis. Peritoneum and bowel: Bowel loops demonstrate normal wall thickness and caliber. No free fluid or a ir. Sigmoid diverticulosis without evidence of diverticulitis. Nodes and vessels: No retroperitoneal or mesenteric adenopathy by size criteria. Aorta and inferior vena cava are normal in size. Miscellaneous: No ventral hernias. PELVIS: Genitourinary: Bladder wall thickness is normal. Miscellaneous: No inguinal hernias or adenopathy. Bones: No suspicious bony lesions. Old L2 compression fracture. IMPRESSION: 1. No evidence of metastatic disease in the abdomen and pelvis. 2. No evidence of acute abdominal process. 3. Cardiomegaly, valve prosthesis, coronary artery disease, pacemaker. 4. Diverticulosis without evidence of diverticulitis. Reviewed by: Sourav Vazquez MD on 12/21/2021 3:15 PM PDT Approved by: Sourav Vazquez MD on 12/21/2021 3:15 PM PDT Station ID: [id number]
[2021-12-21] MEDS ORDERED: MAG HYDROX/AL HYDROX/SIMETH 30 ML UDC PO STA (15:50)
[2021-12-21] MEDS ORDERED: SUCRALFATE 1 GM/10 ML UDC PO STA (15:50)
[2021-12-21] MEDS ORDERED: IOPAMIDOL-300 100 ML VIAL IVP ONE (16:24)
[2021-12-21 16:57] VITALS: BP 111/80
== END 2021-12-21 17:10 | disposition home or self-care (01) ==
LOC: ED 12:35
DX: K29.70 Gastritis, unspecified, without bleeding (principal); I10 Essential (primary) hypertension
CPT/HCPCS: 36415; 74177; 80053; 81003; 83690; 83735; 84100; 85025; 85610; 96374; 96375; 99283; 99284; A9270; Q9967; 81001; 87086

== ENCOUNTER 2022-01-19 12:59 | Outpatient (CLI) | payer MEDICARE ==
--- NOTE | 2022-01-19 16:34 | CT Report ---
PROCEDURE: LUMBAR SPINE WO INDICATIONS: MID AND LOW BACK PAIN TECHNIQUE: Noncontrast 3 mm thick sections acquired from the T12 level to the sacrum. Sagittal and coronal refo rmats were constructed. For radiation dose reduction, the following was used: automated exposure co ntrol, adjustment of mA and/or kV according to patient size. COMPARISON: None. FINDINGS: Image quality: Excellent. Bones: Large Schmorl's node noted in the superior endplate of the L2 vertebral body. There is mild, approximately 5 mm of L4-L5 anterolisthesis secondary to facet hypertrophy. No acute vertebral body c ompression fractures. No suspicious lytic or blastic bony lesions. No pars defects. T12-L1: Disc height is normal. No central stenosis. No neural foraminal narrowing. No neural eleanor pao. L1-L2: Disc height is normal. Mild, diffuse disc bulge. Mild bilateral facet hypertrophy. Mild luma rowing of the central canal. Mild right and moderate left neural foraminal narrowing. No neural compr ession. L2-L3: Slight loss of disc height. Mild, diffuse disc bulge. Mild bilateral facet hypertrophy. Mil d narrowing of the central canal. Mild bilateral neural foraminal narrowing. No neural compression. L3-L4: Loss of disc height. Vacuum disc phenomenon. Mild, diffuse disc bulge. Moderate bilateral fa cet of artery. Moderate ligamentum flavum hypertrophy. Moderate narrowing of the central canal. Moder ate right and mild left neural foraminal narrowing. No neural compression. L4-L5: Loss of disc height. Moderate bilateral facet of upper to. Moderate narrowing of the central canal. Severe bilateral neural foraminal narrowing with compression of the exiting L4 nerve roots. L5-S1: Disc height is normal. I'll bilateral facet hypertrophy. No central stenosis. Mild right dashawn ral foraminal narrowing. No neural compression. Soft tissues: No retroperitoneal masses or hematomas. Visualized aorta is normal in caliber. Scatte red atherosclerotic calcifications are noted in the visualized abdominal and pelvic vasculature. Nume bobby diverticuli noted in the visualized colon without evidence of diverticulitis. IMPRESSION: 1. Grade 1 L4-L5 degenerative spondylolisthesis. 2. Multilevel degenerative disc disease. 3. Multilevel facet arthropathy. 4. No severe central canal narrowing. 5. Severe bilateral L4-L5 neural foraminal narrowing with compression of the exiting bilateral L4 ner ve roots. Reviewed by: Holli Rubio MD, PhD on 01/19/2022 4:33 PM PDT Approved by: Holli Rubio MD, PhD on 01/19/2022 4:33 PM PDT Station ID: [id number]
--- NOTE | 2022-01-19 18:08 | CT Report ---
PROCEDURE: THORACIC SPINE CT WITHOUT CONTRAST INDICATIONS: MID AND LOW BACK PAIN TECHNIQUE: Noncontrast 3 mm thick sections acquired through the region of interest in the thoracic spine. Sagit cecelia and coronal reformats were then constructed. For radiation dose reduction, the following was used : automated exposure control, adjustment of mA and/or kV according to patient size. COMPARISON: 03/03/2019 FINDINGS: Image quality: Excellent. Bones: Generalized decreased osseous mineralization present. Wedge-shaped T8 compression fracture is again noted with increased height loss now with at least 75% anterior height loss of no retropulsed f racture fragment. Additional compression fractures are noted at T7 and T5, new from the prior exam. R etropulsed fracture fragment at the T5 level results in mild central stenosis. Exaggerated thoracic k yphosis now noted. No intrinsic osseous lesion present. Soft tissues: Ascending thoracic aortic aneurysm measures 4 cm in diameter, similar prior. Pulmonary emphysema and dense aortic atherosclerotic vascular calcification present. IMPRESSION: 1. Osteopenic compression fractures. New compression fractures at T5 and T7, and prior T8 compression fracture shows further collapse. Consider IR consultation for vertebroplasty. 2. Small retropulsed fracture fragment at the T8 results in mild central stenosis. 3. Dense aortic atherosclerotic vascular calcification and ascending thoracic aorta aneurysm, stable from prior Reviewed by: Dale Moya MD on 01/19/2022 5:07 PM ABBY Approved by: Dale Moya MD on 01/19/2022 5:07 PM ABBY Station ID: [id number]
== END 2022-01-19 13:00 | disposition home or self-care (01) ==
LOC: DI 12:59
PROVIDERS: ATTEND Physician Assistant Surgical
DX: M51.16 Intervertebral disc disorders with radiculopathy, lumbar region (principal); M48.061 Spinal stenosis, lumbar region without neurogenic claudication; M47.26 Other spondylosis with radiculopathy, lumbar region; M47.817 Spondylosis without myelopathy or radiculopathy, lumbosacral region; M80.88XA Other osteoporosis with current pathological fracture, vertebra(e), initial encounter for fracture; I71.2 Thoracic aortic aneurysm, without rupture; I70.0 Atherosclerosis of aorta

== ENCOUNTER 2022-03-15 10:31 | Outpatient (CLI) | payer MEDICARE ==
[2022-03-15 11:01] LABS: BILIRUBIN,URINE NEGATIVE (NEGATIVE); GLUCOSE, URINE (UA) NEGATIVE (NEGATIVE); KETONES,URINE (UA) NEGATIVE (NEGATIVE); LEUKOCYTE ESTERASE, URINE NEGATIVE (NEGATIVE); NITRITE,URINE NEGATIVE (NEGATIVE); OCCULT BLOOD,URINE NEGATIVE (NEGATIVE); PROTEIN,URINE 30 mg/dL (NEGATIVE); UROBILINOGEN,URINE 0.2 (NORMAL) E.U./dL (NORMAL)
[2022-03-15 11:02] LABS: CLARITY,URINE CLEAR (CLEAR)
[2022-03-15 11:09] LABS: BACTERIA,URINE Rare /HPF (None Seen); RBC,URINE 0-5 /HPF (0-5); SQUAMOUS EPITHELIAL CELL,UR RARE Squamous (<= Few)
[2022-03-15 11:10] LABS: CASTS, URINE 0-2 Hyaline Casts /LPF
[2022-03-15 11:20] LABS: CREATININE,URINE 93.4 mg/dL; PROTEIN/CREATININE RATIO,URINE 0.7 (<=0.2)
[2022-03-15 11:27] LABS: ALBUMIN 4.1 g/dL (3.2-5.5); ALKALINE PHOSPHATASE 171 IU/L (42-121); ALT ALANINE AMINOTRANSFERASE 33 IU/L (10-60); AST ASPARTATE AMINOTRANSFERASE 44 IU/L (10-42); BILIRUBIN,TOTAL 1.4 mg/dL (0.2-1.0); BUN - BLOOD UREA NITROGEN 68 mg/dL (6-20); CALCIUM 10.5 mg/dL (8.5-10.3); CARBON DIOXIDE - CO2 31 mmol/L (21-32); CHLORIDE 102 mmol/L (101-111); CHOL/HDL RATIO 1.9 (<4.4); CHOLESTEROL 152 mg/dL; CREATININE 1.4 mg/dL (0.4-1.0); GFR - MDRD 36 (>89); GLUCOSE 103 mg/dL (70-100); HDL CHOLESTEROL 78 mg/dL; LDL CHOLESTEROL,CALCULATED 58 mg/dL; LDL/HDL RATIO 0.7 (<4.4); MAGNESIUM 2.5 mg/dL (1.7-2.8); POTASSIUM 3.9 mmol/L (3.5-5.0); SODIUM 145 mmol/L (135-145); TOTAL PROTEIN 8.3 g/dL (6.7-8.2); TRIGLYCERIDES 78 mg/dL; VLDL CHOLESTEROL 16 mg/dL
[2022-03-17 12:08] LABS: HDL-P (TOTAL) 34.5 umol/L (>=30.5); LDL SIZE 20.6 nm (>20.5); LDL-P 433 nmol/L (<1000); LP-INSULIN RESISTANCE SCORE 35 (<=45); SMALL LDL-P 245 nmol/L (<=527)
== END 2022-03-15 10:32 | disposition home or self-care (01) ==
LOC: LAB 10:31
PROVIDERS: ATTEND Specialist
DX: E78.00 Pure hypercholesterolemia, unspecified (principal); I12.9 Hypertensive chronic kidney disease with stage 1 through stage 4 chronic kidney disease, or unspecified chronic kidney disease; N18.31 Chronic kidney disease, stage 3a; R80.9 Proteinuria, unspecified; I48.0 Paroxysmal atrial fibrillation
CPT/HCPCS: 36415; 80053; 80061; 80069; 81001; 82570; 83704; 83721; 83735; 84156; 85025

== ENCOUNTER 2022-04-14 20:36 | Outpatient (CLI) | payer MEDICARE | END 2022-04-14 20:37 | disposition short-term general hospital (02) | LOC: EMS 20:36 | DX: M25.551 Pain in right hip (principal); W01.0XXA Fall on same level from slipping, tripping and stumbling without subsequent striking against object, initial encounter; Y93.01 Activity, walking, marching and hiking; Y92.008 Other place in unspecified non-institutional (private) residence as the place of occurrence of the external cause | CPT/HCPCS: A0425; A0429 ==